=== PATIENT | male | born 1960 | race Hispanic/Latino ===

== ENCOUNTER 2024-01-28 12:13 | Inpatient (IN) | payer OTHER, SELFPAY ==
[2024-01-28] VITALS (12 sets, daily range): BP systolic 99–133; BP diastolic 54–76; PULSE 60–82; RESP 14–18; TEMP 36.5–37.1; O2SAT 96–100; BMI 22.7; BMI 23.5
[2024-01-28 13:16] LABS: Absolute Neutrophil Count 5.1 X10^3/uL (2.0-7.7); Basophil# 0.04 X10^3/uL; Basophil% 0.6 % (0-1); Eosinophil# 0.05 X10^3/uL; Eosinophils% 0.8 % (0-5); Hematocrit 22.1 % (40-54); Hemoglobin 6.8 g/dL (13.0-16.5); Lymphocyte % 9.4 % (19-41); Mean Corp Hgb Conc 30.8 g/dL (32-36); Mean Corpuscular Hgb 24.8 pg (27.0-32.0); Mean Corpuscular Volume 80.7 fL (80-94); Mean Platelet Vol. 10.1 fl (6.2-12.0); Monocyte# 0.51 X10^3/uL; NRBC Flagged by Analyzer 0 % (0-5); Neutrophil # 5.14 X10^3/uL (2.7-7.7); Neutrophil % 80.9 % (47-70); POSITIVE DIFFERENTIAL YES; Platelet Count 285 K/mm3 (150-450); RBC Distribution Width CV 13.7 % (11.6-14.6); RBC Distribution Width SD 39.8 fl (35.1-43.9); Red Blood Count 2.74 M/mm3 (4.6-6.2); White Blood Count 6.4 K/mm3 (4.4-11.0)
--- NOTE | 2024-01-28 13:23 | EX.ED.DYSGE1 ---
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 Patient states for the past couple months he has had pain with eating some nausea vomiting and loss of appetite. He is lost about 10 pounds. He notes that he has not had much of a bowel movement over the past week but when he has had a bowel movement it has been very small and black. He started taking Nexium on Saturday. He denies any drug or alcohol use.. He is a non-smoker. He takes no anti-inflammatories [id number]. No familial history of cancer or GI issues that he is aware of. Patient denies any syncope but notes generalized weakness. His friend notes that he appears pale to him. The patient notes that his palms appear pale. The patient went to urgent care were it was reported by the nurse practitioner that his stool was guaiac positive and he was sent to the emergency room for further evaluation [facility] Medical History no medical history no medical history Home Medications esomeprazole magnesium 20 mg capsule,delayed release (Nexium 24HR) 20 mg PO DAILY 01/28/24 [History Last Taken 01/28/24] Allergy/AdvReac Type Severity Reaction Status Date / Time No Known Allergies Allergy Verified 01/28/24 12:36 Surgical History no surgical history no surgical history Social History (Updated 01/28/24 @ 13:[address] Pablito Mendoza, DO) current gender identity: male Smoking Status: Never smoker substance use type: does not use ROS ROS ED Constitutional Constitutional ED: Denies chills, fever(s) or weight loss Eyes Eyes: Denies change in vision or diplopia ENT ENT ED: Denies ear pain, rhinorrhea or sore throat Cardiovascular Cardiovascular: Denies chest pain, orthopnea, palpitations or racing heartbeat Respiratory/Chest Respiratory/Chest: Denies cough, dyspnea or orthopnea Gastrointestinal Gastrointestinal: Reports abdominal pain, constipation, nausea, vomiting and other Details: Black stools ; Denies diarrhea Genitourinary Genitourinary ED: Denies dysuria, hematuria or urinary frequency Musculoskeletal Musculoskeletal: Denies arthralgias or myalgias Integumentary Denies abscess or rash Neurologic Neurologic: Denies headache(s) or weakness Psychiatric Psychiatric: Denies anxiety, depression, suicidal ideation or suicidal thoughts Endocrine Endocrinology: Denies polydipsia, polyphagia or polyuria Allergic/Immunologic Allergic/Immunologic ED: Denies mouth swelling, tongue swelling or urticaria EXAM Physical Exam Const Vital Signs: 01/28/24 12:14 01/28/24 14:14 Temperature 98 F Temperature Source Temporal Pulse Rate 77 74 Respiratory Rate 16 14 Blood Pressure 133/76 H 130/74 H Blood Pressure Mean 95 92 Pulse Ox 100 99 Oxygen Delivery Method Room Air Room Air Positive well nourished and well developed General Appearance ED: well developed and pallor HEENT Reports normocephalic, head/scalp atraumatic and moist mucous membranes Eyes PERRL and EOMs intact bilaterally Neck no lymphadenopathy, supple and no JVD Resp normal respiratory effort and clear to auscultation bilaterally Cardio regular rate, regular rhythm and no murmurs GI normal to inspection, nondistended, normoactive bowel sounds and non-tender Palpation: soft Back/Spine no CVA tenderness and normal ROM Extremity normal to inspection General Extremety ED: Negative for edema General Extremity: Negative for edema Neuro oriented x3 and CN's II-XII intact bilaterally Sensorium / Orientation: alert Motor Exam: strength 5/5 throughout Psych mental status grossly normal Mood & Affect: Negative for depressed or tearful Skin no rashes or lesions noted and no wounds General Skin Exam: pallor MDM MDM MDM Narrative Medical decision making narrative: Because of a guaiac was performed outside facility and reported to me I did not repeat the test. Hemoglobin returns at 6.8 MCV of 80.7 platelet count of 285 and a white count of 6.4. Coags with an INR 1.2 PTT 23.3 potassium low at 3.1 glucose of 104 BUN of 18 creatinine 0.91 LFTs are within normal limits. Patient was placed on Protonix and given potassium supplementation. To be speaking with gastroenterology and the hospitalist regarding admission. History & Record Review Discussion w/independent historian: Patient and Friend Lab Data Attestation: I reviewed the patient's lab results. Labs: Laboratory Results - last 24 hr 01/28/24 01/28/24 01/28/24 13:00 13:36 14:25 WBC 6.4 RBC 2.74 L Hgb 6.8 L Hct 22.1 L MCV 80.7 MCH 24.8 L MCHC 30.8 L RDW Std Deviation 39.8 RDW Coeff of Michael 13.7 Plt Count 285 MPV 10.1 Immature Gran % (Auto) 0.300 Neut % (Auto) 80.9 H Lymph % (Auto) 9.4 L Ralls % (Auto) 8.0 Eos % (Auto) 0.8 Baso % (Auto) 0.6 Absolute Neuts (auto) 5.1 Absolute Lymphs (auto) 0.60 L Nucleated RBC % 0 PT 14.7 INR 1.2 APTT 23.3 L Sodium 136 Potassium 3.1 L Chloride 105 Carbon Dioxide 25.0 Anion Gap 6 BUN 18 Creatinine 0.91 Estim Creat Clear Calc 63.33 Est GFR (MDRD) Af Amer 108 Est GFR (MDRD) Non-Af 89 BUN/Creatinine Ratio 19.8 Glucose 104 Calcium 7.9 L Total Bilirubin 0.30 Direct Bilirubin 0.11 AST 26 ALT 21 Alkaline Phosphatase 67 Total Protein 6.2 L Albumin 2.6 L Globulin 3.6 Lipase 36 Blood Type O POSITIVE Antibody Screen NEGATIVE Management Discussion w/another healthcare provider: Hospitalist (Dr Sommer) and Corporate Staff Accountant (GI ( Friend)) Discharge Plan Dx/Rx/DC Orders Clinical Impression: Abnormal weight loss, Acute blood loss anemia, Acute upper GI bleed Disposition Disposition: Acute Care Hospital [facility]
[2024-01-28 13:28] LABS: AST(SGOT) 26 U/L (15-37); Alanine Aminotransfer ALT/SGPT 21 U/L (16-61); Albumin, Serum 2.6 g/dL (3.2-5.0); Alkaline Phosphatase 67 U/L (45-117); Anion Gap 6 (5-15); BUN 18 mg/dL (7-18); BUN/Creat Ratio 19.8 RATIO (10-20); Bilirubin, Direct 0.11 mg/dL (0.00-0.30); Calcium,Total 7.9 mg/dL (8.5-10.1); Chloride 105 mmol/L (98-107); Creatinine, Serum 0.91 mg/dL (0.70-1.30); EST Glomerular Filtration Rate 89 mL/min (>60); Est Glom Filt Rate - Afr Amer 108 mL/min (>60); Estimated Creatinine Clearance 63.33 ml/min; Globulin 3.6 g/dL (2.2-4.2); Glucose 104 mg/dL (74-106); Lipase 36 U/L (13-75); Potassium 3.1 mmol/L (3.5-5.1); Protein, Total 6.2 g/dL (6.4-8.2); Sodium Level 136 mmol/L (136-145)
[2024-01-28] MEDS: Pantoprazole Sodium 80 MG in 0.9% Normal Saline (50mL Bag) 15 ML 420 MG IV BOLUS (14:15)
[2024-01-28 14:40] LABS: International Normalized Ratio 1.2; Prothrombin Time (Protime)PT. 14.7 SECONDS (11.7-14.9)
[2024-01-28 14:41] LABS: Partial Thromboplast Time 23.3 Seconds (24.1-36.2)
--- NOTE | 2024-01-28 14:46 | PCM.HP.STD ---
HPI - General General Date of Admission: 01/28/24 Date of Service: 01/28/24 Chief Complaint: Epigastric pain, N/V, black stools. HPI Narrative The patient is a 63 y/o M w/ no marked PMHx and on no medications who presents to the [facility] ED on 01/28/24 with history of persistent epigastric pain ongoing for the last 2 to 3 months with nausea and occasional emesis as well as decreased appetite reportedly losing 10 pounds with minimal bowel movements over the last week but poor oral intake however he does report that the bowel movements he has had have been small and black in appearance with self administration of Nexium starting this Saturday prior to presentation with no alcohol abuse reported and no [id number] anti-inflammatory medication but given ongoing with generalized weakness and fatigue as well as pale appearance patient was referred from urgent care to the ED for evaluation given these findings and positive stool guaiac. Workup in the ED included T98, heart 77, BP 133/76, respiratory rate 16, on high percent on room air, CBC with WBC 6.4, hemoglobin 6.8, MCV 80.7, platelet 285 with lymphopenia, coags unremarkable aside PTT 23.3, CMP with potassium 3.1, calcium 7.9 otherwise not marked appearing, lipase 36, type and cross initiated per ED physician. In the ED patient administered Protonix bolus and started on drip as well, Zofran 4 mg IV x 1. ED discussed case with gastroenterology. FORMERLY [facility], [facility]1983 Medical History (Updated 01/28/24 @ 17:08 by Trudy Guerra) GI bleed Medical History no medical history Home Medications esomeprazole magnesium 20 mg capsule,delayed release (Nexium 24HR) 20 mg PO DAILY 01/28/24 [History Last Taken 01/28/24] Allergy/AdvReac Type Severity Reaction Status Date / Time No Known Allergies Allergy Verified 01/28/24 12:36 Family History (Updated 01/28/24 @ 19:[address] Chelly Sommer MD) Mother No problems noted. Father No problems noted. other (Patient denies any marked paternal or maternal family history including HD/DM/CA.) Surgical History (Updated 01/28/24 @ 19:[address] Chelly Sommer MD) No history of previous surgery Surgical History no surgical history Social History (Updated 01/28/24 @ 19:[address] Chelly Sommer MD) household members: family Smoking Status: Never smoker alcohol intake: never substance use type: does not use ROS ROS Narrative Admission Review of Systems: CONSTITUTIONAL: No weight loss, fever, chills, + weakness or fatigue. HEENT: + Lightheadness, dizziness. Eyes: No visual loss, blurred vision, double vision or yellow sclerae. Ears, Nose, Throat: No hearing loss, sneezing, congestion, runny nose or sore throat. SKIN: No rash or itching, lesions, wounds. CARDIOVASCULAR: No chest pain, chest pressure or chest discomfort, palpitations, edema, orthopnea, syncopal events. RESPIRATORY: No shortness of breath, cough or sputum, wheezing, hemoptysis. GASTROINTESTINAL: + anorexia, nausea without vomiting, black stools, abdominal pain. No diarrhea, BRBPR. GENITOURINARY: No dysuria, frequency, urgency or retention. NEUROLOGICAL: + Lightheadedness, dizziness. No headache, syncope, paralysis, ataxia, numbness or tingling in the extremities, focal weakness, change in bowel or bladder control, seizure. MUSCULOSKELETAL: No muscle, back pain, joint pain or stiffness. HEMATOLOGIC: + Anemia, active GI bleed. LYMPHATICS: No enlarged nodes. No history of splenectomy. PSYCHIATRIC: No history of depression or anxiety. ENDOCRINOLOGIC: No reports of sweating, cold or heat intolerance. No polyuria or polydipsia. ALLERGIES: No history of asthma, hives, eczema or rhinitis. Vital Signs Vital Signs Vital Signs: 01/28/24 12:14 01/28/24 14:14 Temperature 98 F Temperature Source Temporal Pulse Rate 77 74 Respiratory Rate 16 14 Blood Pressure 133/76 H 130/74 H Blood Pressure Mean 95 92 Pulse Ox 100 99 Oxygen Delivery Method Room Air Room Air Weight Weight: 124 lb 4 oz Body Mass Index (BMI) 22.7 Physical Exam Narrative Physical Examination: General: Awake, alert, oriented x 3 and cooperative, seated upright in the ED bed in no apparent distress, fatigued appearing. Skin: Pale color, normal turgor, no icterus, no cyanosis. HEENT: AT/NC, EOMI, PERRLA, dry MM, no carotid bruits or JVD noted. Lungs: CTA bilaterally, moderate effort, mild decrease BL bases, no rales, ronchi or wheezing. Heart: Regular rate and rhythm; no gallop, rub audible. Abdomen: Soft, mild epigastric discomfort to palpation otherwise abdomen nontender, ND, hyperactive BS, no appreciated HSM. Extremities: No cyanosis, clubbing, or edema. Neurological: Patient awake, alert, oriented as noted, cognitive function intact; pupils equally reactive to light and accommodation, cranial nerves II-XII grossly normal, moving all 4 extremities, no focal deficits, strength mildly to moderately globally decreased secondary to acute presentation. Psychiatric: Affect appears flat, fatigued, no acute evidence of depressive or anxiety feelings. Results Lab / Micro Data 01/28/24 13:00 01/28/24 13:00 Labs: Laboratory Results - last 24 hr 01/28/24 13:00: WBC 6.4, RBC 2.74 L, Hgb 6.8 L, Hct 22.1 L, MCV 80.7, MCH 24.8 L, MCHC 30.8 L, RDW Std Deviation 39.8, RDW Coeff of Michael 13.7, Plt Count 285, MPV 10.1, Immature Gran % (Auto) 0.300, Neut % (Auto) 80.9 H, Lymph % (Auto) 9.4 L, Hall % (Auto) 8.0, Eos % (Auto) 0.8, Baso % (Auto) 0.6, Absolute Neuts (auto) 5.1, Absolute Lymphs (auto) 0.60 L, Nucleated RBC % 0, Sodium 136, Potassium 3.1 L, Chloride 105, Carbon Dioxide 25.0, Anion Gap 6, BUN 18, Creatinine 0.91, Estim Creat Clear Calc 63.33, Est GFR (MDRD) Af Amer 108, Est GFR (MDRD) Non-Af 89, BUN/Creatinine Ratio 19.8, Glucose 104, Calcium 7.9 L, Total Bilirubin 0.30, Direct Bilirubin 0.11, AST 26, ALT 21, Alkaline Phosphatase 67, Total Protein 6.2 L, Albumin 2.6 L, Globulin 3.6, Lipase 36 01/28/24 13:36: Blood Type O POSITIVE, Antibody Screen NEGATIVE 01/28/24 14:25: PT 14.7, INR 1.2, APTT 23.3 L Assessment & Plan Assessment/Plan (1) Acute upper GI bleed: PLAN: Plan The patient is a 63 y/o M w/ no marked PMHx and on no medications who presents to the [facility] ED on 01/28/24 with history of persistent epigastric pain ongoing for the last 2 to 3 months with nausea and occasional emesis as well as decreased appetite reportedly losing 10 pounds with minimal bowel movements over the last week but poor oral intake however he does report that the bowel movements he has had have been small and black in appearance with self administration of Nexium. #1. Acute GI Bleed w/ resultant Acute Blood Loss Anemia: Admission Hgb 6.8, unclear prior baseline, will admit to MS given stable VS, maintain on IVFs with pending 1 u PRBC per ED, will obtain serial H+Hs, maintain on IV PPI, continue IV protonix drip initiated in the ED, clears until midnight then NPO status. CM consulted. #2. Hypokalemia: Admission K+ 3.1, magnesium requested, supplementation given, repeat level in AM. #3. DVT prophylaxis: SCDs. Charges/Coding Visit Charges Inpatient E&M: 94312 Init Hosp L2
[2024-01-28] MEDS: Potassium Chloride 10mEq/100mL 10 MEQ/100 ML IV.SOLN. 100 MEQ IV BOLUS (15:08)
[2024-01-28] MEDS: Pantoprazole Sodium 80 MG in 0.9% Normal Saline (100mL Bag) 80 ML 10 MG CONT INF (15:08)
[2024-01-28] MEDS: Ondansetron 4 MG/2 ML Vial IV (15:08)
--- NOTE | 2024-01-28 15:11 | NURSING ---
MED SURG WHITE UPPER GI BLEEDING, ANEMIA
[2024-01-28 15:34] LABS: Magnesium 2.1 mg/dL (1.6-2.6)
--- NOTE | 2024-01-28 17:10 | NURSING ---
limited assessment completed due to language barrier.
[2024-01-28] MEDS: Potassium Chloride Oral Tablet 20 MEQ 40 MEQ PO (17:58)
[2024-01-28] MEDS: 0.9% Normal Saline (1000mL) 1,000 ML 100 ML IV (18:47)
[2024-01-28 20:15] LABS: Hematocrit 21.8 % (40-54); Hemoglobin 6.9 g/dL (13.0-16.5)
--- NOTE | 2024-01-28 22:27 | EX.PCM.CON.G ---
HPI Consult Data Date of Consult: 01/28/24 HPI Narrative Reason for Consultation: Upper GI bleed HPI Narrative: KAILA ANDRADE, is a 63 M who presents severe abdominal pain. He has no significant PMHx and on no medications who presents to the [facility] ED on 01/28/24 with history of persistent epigastric pain ongoing for the last 2 to 3 months with nausea and occasional emesis as well as decreased appetite reportedly losing 10 pounds with minimal bowel movements over the last week. He also admits to poor oral intake however he does report that the bowel movements he has had have been small and black in appearance with self administration of Nexium starting this Saturday prior to presentation with no alcohol abuse reported and no [id number] anti-inflammatory medication but given ongoing with generalized weakness and fatigue as well as pale appearance patient was referred from urgent care to the ED for evaluation given these findings and positive stool guaiac. Workup in the ED included T98, heart 77, BP 133/76, respiratory rate 16, on high percent on room air, CBC with WBC 6.4, hemoglobin 6.8, MCV 80.7, platelet 285 with lymphopenia, coags unremarkable aside PTT 23.3, CMP with potassium 3.1, calcium 7.9 otherwise not marked appearing, lipase 36, type and cross initiated per ED physician. [facility] Medical History GI bleed Medical History no medical history Home Medications esomeprazole magnesium 20 mg capsule,delayed release (Nexium 24HR) 20 mg PO DAILY 01/28/24 [History Last Taken 01/28/24] Allergy/AdvReac Type Severity Reaction Status Date / Time No Known Allergies Allergy Verified 01/28/24 12:36 Family History (Updated 01/28/24 @ 19:[address] Chelly Sommer MD) Mother No problems noted. Father No problems noted. Family History other Surgical History No history of previous surgery Surgical History no surgical history Social History (Updated 01/28/24 @ 19:[address] Chelly Sommer MD) household members: family current gender identity: male Smoking Status: Never smoker alcohol intake: never substance use type: does not use ROS ROS Narrative Admission Review of Systems: CONSTITUTIONAL: No weight loss, fever, chills, + weakness or fatigue. HEENT: + Lightheadness, dizziness. Eyes: No visual loss, blurred vision, double vision or yellow sclerae. Ears, Nose, Throat: No hearing loss, sneezing, congestion, runny nose or sore throat. SKIN: No rash or itching, lesions, wounds. CARDIOVASCULAR: No chest pain, chest pressure or chest discomfort, palpitations, edema, orthopnea, syncopal events. RESPIRATORY: No shortness of breath, cough or sputum, wheezing, hemoptysis. GASTROINTESTINAL: + anorexia, nausea without vomiting, black stools, abdominal pain. No diarrhea, BRBPR. GENITOURINARY: No dysuria, frequency, urgency or retention. NEUROLOGICAL: + Lightheadedness, dizziness. No headache, syncope, paralysis, ataxia, numbness or tingling in the extremities, focal weakness, change in bowel or bladder control, seizure. MUSCULOSKELETAL: No muscle, back pain, joint pain or stiffness. HEMATOLOGIC: + Anemia, active GI bleed. LYMPHATICS: No enlarged nodes. No history of splenectomy. PSYCHIATRIC: No history of depression or anxiety. ENDOCRINOLOGIC: No reports of sweating, cold or heat intolerance. No polyuria or polydipsia. ALLERGIES: No history of asthma, hives, eczema or rhinitis. Physical Exam Const alert Constitutional Narrative: Appears younger than stated age. Afebrile. Resp normal respiratory effort, no retractions, no use of accessory muscles and clear to auscultation bilaterally Cardio regular rate, regular rhythm, S1 normal heart sound and S2 normal heart sound GI normal to inspection, nondistended, normoactive bowel sounds and soft to palpation GI Narrative: Epigastric abdominal pain without rebound. Extremity normal to inspection and full ROM Neuro Sensorium / Orientation: awake and alert Psych affect normal Lab / Micro Data 01/29/24 07:15 01/29/24 02:31 Labs: Laboratory Results - last 24 hr 01/28/24 13:00: WBC 6.4, RBC 2.74 L, Hgb 6.8 L, Hct 22.1 L, MCV 80.7, MCH 24.8 L, MCHC 30.8 L, RDW Std Deviation 39.8, RDW Coeff of Michael 13.7, Plt Count 285, MPV 10.1, Immature Gran % (Auto) 0.300, Neut % (Auto) 80.9 H, Lymph % (Auto) 9.4 L, [place] % (Auto) 8.0, Eos % (Auto) 0.8, Baso % (Auto) 0.6, Absolute Neuts (auto) 5.1, Absolute Lymphs (auto) 0.60 L, Nucleated RBC % 0, Sodium 136, Potassium 3.1 L, Chloride 105, Carbon Dioxide 25.0, Anion Gap 6, BUN 18, Creatinine 0.91, Estim Creat Clear Calc 63.33, Est GFR (MDRD) Af Amer 108, Est GFR (MDRD) Non-Af 89, BUN/Creatinine Ratio 19.8, Glucose 104, Calcium 7.9 L, Magnesium 2.1, Total Bilirubin 0.30, Direct Bilirubin 0.11, AST 26, ALT 21, Alkaline Phosphatase 67, Total Protein 6.2 L, Albumin 2.6 L, Globulin 3.6, Lipase 36 01/28/24 13:36: Blood Type O POSITIVE, Antibody Screen NEGATIVE, Crossmatch See Detail 01/28/24 13:36: Crossmatch See Detail 01/28/24 14:25: PT 14.7, INR 1.2, APTT 23.3 L 01/28/24 19:54: Hgb 6.9 L, Hct 21.8 L 01/29/24 02:31: Hgb 8.1 L, Hct 24.9 L, Sodium 141, Potassium 3.5, Chloride 111 H, Carbon Dioxide 25.0, Anion Gap 5, BUN 9, Creatinine 0.62 L, Estim Creat Clear Calc 92.96, Est GFR (MDRD) Af Amer 167, Est GFR (MDRD) Non-Af 138, BUN/Creatinine Ratio 14.5, Glucose 102, Calcium 7.2 L, Total Bilirubin 0.70, AST 17, ALT 16, Alkaline Phosphatase 52, Total Protein 4.8 L, Albumin 2.0 L, Globulin 2.8, Albumin/Globulin Ratio 0.7 L 01/29/24 07:15: WBC 4.7, RBC 2.89 L, Hgb 7.7 L, Hct 24.0 L, MCV 83.0, MCH 26.6 L, MCHC 32.1, RDW Std Deviation 44.5 H, RDW Coeff of Michael 14.6, Plt Count 202, MPV 10.6, Immature Gran % (Auto) 0.200, Neut % (Auto) 62.8, Lymph % (Auto) 18.1 L, [place] % (Auto) 13.8 H, Eos % (Auto) 4.5, Baso % (Auto) 0.6, Absolute Neuts (auto) 3.0, Absolute Lymphs (auto) 0.85, Nucleated RBC % 0 Assessment & Plan Assessment/Plan (1) Acute upper GI bleed: PLAN: Plan The patient is a 63 y/o M w/ no marked PMHx and on no medications who presents to the [facility] ED on 01/28/24 with history of persistent epigastric pain ongoing for the last 2 to 3 months. He also admits to nausea and occasional emesis as well as decreased appetite reportedly losing 10 pounds with minimal bowel movements over the last week. . Suspected acute GI Bleed w/ resultant Acute Blood Loss Anemia: Admission Hgb 6.8, unclear prior baseline, will admit to MS given stable VS, maintain on IVFs with pending 1 u PRBC per ED, will obtain serial H+Hs, maintain on IV PPI, continue IV protonix drip initiated in the ED, clears until midnight then NPO status. He will undergo an upper endoscopy to evaluate his upper GI tract. He was explained alternatives, risk, benefits including not withstanding bleeding, infection, sepsis, perforation, need for emergent surgery and . He will have an ASA of 3. Charges/Coding Visit Charges Inpatient E&M: 78195 Init Hosp L2
[2024-01-29] VITALS (31 sets, daily range): BP systolic 67–110; BP diastolic 47–65; PULSE 50–85; RESP 14–20; TEMP 35.6–37.2; O2SAT 93–100; BMI 23.5
[2024-01-29] MEDS: Pantoprazole Sodium 80 MG in 0.9% Normal Saline (100mL Bag) 80 ML 10 MG CONT INF ×2 (00:38→10:14)
[2024-01-29 02:41] LABS: Hematocrit 24.9 % (40-54); Hemoglobin 8.1 g/dL (13.0-16.5)
[2024-01-29 04:08] LABS: ALB/GLOB Ratio 0.7 RATIO (0.9-2.4); AST(SGOT) 17 U/L (15-37); Alanine Aminotransfer ALT/SGPT 16 U/L (16-61); Alkaline Phosphatase 52 U/L (45-117); Anion Gap 5 (5-15); BUN 9 mg/dL (7-18); BUN/Creat Ratio 14.5 RATIO (10-20); Calcium,Total 7.2 mg/dL (8.5-10.1); Chloride 111 mmol/L (98-107); Creatinine, Serum 0.62 mg/dL (0.70-1.30); EST Glomerular Filtration Rate 138 mL/min (>60); Est Glom Filt Rate - Afr Amer 167 mL/min (>60); Estimated Creatinine Clearance 92.96 ml/min; Globulin 2.8 g/dL (2.2-4.2); Glucose 102 mg/dL (74-106); Potassium 3.5 mmol/L (3.5-5.1); Protein, Total 4.8 g/dL (6.4-8.2); Sodium Level 141 mmol/L (136-145)
[2024-01-29 07:42] LABS: Absolute Lymphocyte Count 0.85 X10^3/uL (0.83-4.51); Basophil# 0.03 X10^3/uL; Basophil% 0.6 % (0-1); Eosinophil# 0.21 X10^3/uL; Eosinophils% 4.5 % (0-5); Hemoglobin 7.7 g/dL (13.0-16.5); Lymphocyte # 0.85 X10^3/ul (0.83-4.51); Lymphocyte % 18.1 % (19-41); Mean Corp Hgb Conc 32.1 g/dL (32-36); Mean Corpuscular Hgb 26.6 pg (27.0-32.0); Mean Platelet Vol. 10.6 fl (6.2-12.0); Monocyte# 0.65 X10^3/uL; Monocyte% 13.8 % (0-10); NRBC Flagged by Analyzer 0 % (0-5); Neutrophil # 2.95 X10^3/uL (2.7-7.7); Neutrophil % 62.8 % (47-70); Platelet Count 202 K/mm3 (150-450); RBC Distribution Width CV 14.6 % (11.6-14.6); RBC Distribution Width SD 44.5 fl (35.1-43.9); Red Blood Count 2.89 M/mm3 (4.6-6.2); White Blood Count 4.7 K/mm3 (4.4-11.0)
--- NOTE | 2024-01-29 07:55 | PN.HOSP_ITS ---
Reason for Visit Reason for Visit: Diagnoses Gastrointestinal hemorrhage, unspecified (01/28/24) Subjective Subjective I was able to speak with the patient directly with out the use of hand tool filer. Patient is claiming of epigastric pain and had been having melena prior to arrival. Denies any further melena at this time. Objective Data Objective Data Vital Signs: Vital Signs Temp Pulse Resp BP Pulse Ox O2 Del Method 36.8 C 60 16 90/56 L 98 Room Air 01/29/24 05:45 01/29/24 05:45 01/29/24 05:45 01/29/24 05:45 01/29/24 05:45 01/29/24 05:45 Oxygen Delivery Method Room Air Weight: 58.4 kg Body Mass Index (BMI) 23.5 Intake & Output: Intake and Output for Last 24 Hours 01/27/24 01/28/24 01/29/24 23:59 23:59 23:59 Intake Total 482.67 / 482.67 96 / 96 Balance 482.67 / 482.67 96 / 96 Lab / Micro Data 01/29/24 07:15 01/29/24 02:31 Labs: Laboratory Results - last 24 hr 01/28/24 13:00: WBC 6.4, RBC 2.74 L, Hgb 6.8 L, Hct 22.1 L, MCV 80.7, MCH 24.8 L , MCHC 30.8 L, RDW Std Deviation 39.8, RDW Coeff of Michael 13.7, Plt Count 285, MPV 10.1, Immature Gran % (Auto) 0.300, Neut % (Auto) 80.9 H, Lymph % (Auto) 9.4 L, [place] % (Auto) 8.0, Eos % (Auto) 0.8, Baso % (Auto) 0.6, Absolute Neuts (auto) 5.1, Absolute Lymphs (auto) 0.60 L, Nucleated RBC % 0, Sodium 136, Potassium 3.1 L, Chloride 105, Carbon Dioxide 25.0, Anion Gap 6, BUN 18, Creatinine 0.91, Estim Creat Clear Calc 63.33, Est GFR (MDRD) Af Amer 108, Est GFR (MDRD) Non-Af 89, BUN/Creatinine Ratio 19.8, Glucose 104, Calcium 7.9 L, Magnesium 2.1, Total Bilirubin 0.30, Direct Bilirubin 0.11, AST 26, ALT 21, Alkaline Phosphatase 67, Total Protein 6.2 L, Albumin 2.6 L, Globulin 3.6, Lipase 36 01/28/24 13:36: Blood Type O POSITIVE, Antibody Screen NEGATIVE, Crossmatch See Detail 01/28/24 13:36: Crossmatch See Detail 01/28/24 14:25: PT 14.7, INR 1.2, APTT 23.3 L 01/28/24 19:54: Hgb 6.9 L, Hct 21.8 L 01/29/24 02:31: Hgb 8.1 L, Hct 24.9 L, Sodium 141, Potassium 3.5, Chloride 111 H , Carbon Dioxide 25.0, Anion Gap 5, BUN 9, Creatinine 0.62 L, Estim Creat Clear Calc 92.96, Est GFR (MDRD) Af Amer 167, Est GFR (MDRD) Non-Af 138, BUN/Creatinine Ratio 14.5, Glucose 102, Calcium 7.2 L, Total Bilirubin 0.70, AST 17, ALT 16, Alkaline Phosphatase 52, Total Protein 4.8 L, Albumin 2.0 L, Globulin 2.8, Albumin/Globulin Ratio 0.7 L 01/29/24 07:15: WBC 4.7, RBC 2.89 L, Hgb 7.7 L, Hct 24.0 L, MCV 83.0, MCH 26.6 L , MCHC 32.1, RDW Std Deviation 44.5 H, RDW Coeff of Michael 14.6, Plt Count 202, MPV 10.6, Immature Gran % (Auto) 0.200, Neut % (Auto) 62.8, Lymph % (Auto) 18.1 L, [place] % (Auto) 13.8 H, Eos % (Auto) 4.5, Baso % (Auto) 0.6, Absolute Neuts (auto) 3.0, Absolute Lymphs (auto) 0.85, Nucleated RBC % 0 Physical Exam Const alert Constitutional Narrative: Appears younger than stated age. Afebrile. Resp normal respiratory effort, no retractions, no use of accessory muscles and clear to auscultation bilaterally Cardio regular rate, regular rhythm, S1 normal heart sound and S2 normal heart sound GI normal to inspection, nondistended, normoactive bowel sounds and soft to palpation GI Narrative: Epigastric abdominal pain without rebound. Extremity normal to inspection and full ROM Neuro Sensorium / Orientation: awake and alert Psych affect normal Assessment & Plan Assessment/Plan (1) Acute upper GI bleed: PLAN: Plan Acute GI Bleed * Suspect PUD * IV PPI * GI consult Acute Blood Loss Anemia: * 2/2 GIB * Admission Hgb 6.8, unclear prior baseline, improved to 7.7 after 1 unit PRBC Hypokalemia: Admission K+ 3.1, magnesium requested, supplementation given, repeat level in AM. DVT prophylaxis: SCDs. Charges/Coding Visit Charges Inpatient E&M: 68842 Subs Hosp L2
[2024-01-29] MEDS: 0.9% Normal Saline (1000mL) 1,000 ML 150 ML IV (08:53)
[2024-01-29] MEDS: Morphine 2 MG/ML Syringe IV (09:10)
[2024-01-29] MEDS: 0.9% Saline Lock 10 ML Syringe IV (09:11)
--- NOTE | 2024-01-29 11:30 | CASEMGMT ---
RN CM NOTE: RN CM to room to complete initial RN CM assessment. Pt is out of room for scope at this time. Jeremie CORNELLN RN CM
--- NOTE | 2024-01-29 12:15 | IMM_PTH ---
PATIENT: KAILA MARQUEZ LOC: ICU U#:[id number] AGE/SX: 63/M ROOM: ICU05 RE01/28/[address]: Dr. Sean Mooney DO : 1960 BED: 1 DIS: 01/31/2024 SPEC #: [id number] RECD: 01/30/24 08:25 STATUS: SOUT REQ #: [id number] KINGS: 01/29/24 12:[address]: Yusef Myers DEPT: IMMUNOHISTOCHEMISTRY RECD BY: Jorge Crooks ENTERED: 01/30/24 08:26 SP TYPE: IMMUNO OTHR DR: MD Dr. Kj Mobley MD Dr. Autumn L White, MD Dr. Derek Brown, DO Dr. Eric Jopperi, DO Dr. Edward Matheis, MD Dr. Gautam Baskaran, MD Dr. Yordanos Habtegebriel, MD Dr. Hemant Dand, MD Dr. Kimber Foust, MD Dr. Lamia Aljundi, MD Dr. Pritam Ghosh, MD Dr. Pavan Irukulla, MD Dr. Saad Farooqi, MD Dr. Vikram Anand, MD Dr. William Haden, MD No Primary Care Phys Tissues: Stomach, NOS Procedures: H Pylori (initial) CK20 (add) CK7 (add) CK8 (add) KI-67 (add) P53 (add) Pankeratin (add) MOC-31 (add) Comments: @ Ordering doctor for H.PYLORI edited from to @ by BIRD at 01/30/24 0828 @ Submitting doctor edited from to @ by MRYAN at 01/30/24 0828 PHYSICIAN & INSTITUTION [place] [address] SPECIMEN INFORMATION: Tissue Source: Gastric ulcer Clinical Info: GI bleed Specimen Number: [id number] CPT code: 83515,26018p5 METHODOLOGY: Deparaffinized sections of prefer/formalin-fixed tissue or PAP/DQ stained slides are incubated with monoclonal/polyclonal antibodies/oligonucleotide probes. Localization is made via biotin free immunoperoxidase method. Appropriate controls are performed and reacted as expected. Results on target cell population are indicated in the following table: RESULTS: ANTIBODY / CLONE RESULT H Pylori (polyclonal) negative AE1-3 (AE1/AE3/PCK26) positive CK7 (OV-TL12/30) positive CK8 (21knokY75) positive CK20 (KS20.8) negative MOC-31 (4561) positive, weak P53 (DO-7) negative ( null pattern ) Ki-67 (30-9) positive, high These tests were developed and their performance characteristics determined by [facility]. They may not have been cleared or approved by the U.S. Food and Drug Administration. The FDA has determined that such clearance or approval is not necessary. The above immunohistochemical/dualISH markers are ordered and reviewed by the Pathologist. INTERPRETATION: Gastric ulcer, biopsy: Poorly differentiated invasive adenocarcinoma. Negative for H. pylori organisms. ABNER/ 02/04/2024
--- NOTE | 2024-01-29 12:15 | EGD_PTH ---
PATIENT: KAILA MARQUEZ LOC: ICU U#:[id number] AGE/SX: 63/M ROOM: ICU05 RE01/28/[address]: Dr. Sean Mooney DO : 1960 BED: 1 DIS: 01/31/2024 SPEC #: [id number] RECD: 01/29/24 17:47 STATUS: SOUHarry REQ #: [id number] KINGS: 01/29/24 12:[address]: Yusef Myers DEPT: SURGICAL PATHOLOGY RECD BY: Chelsea Huertas ENTERED: 01/30/24 10:15 SP TYPE: EGD BIOPSY OTHR DR: MD Dr. Kj Mobley MD Dr. Autumn L White, MD Dr. Derek Brown, DO Dr. Eric Jopperi, DO Dr. Edward Matheis, MD Dr. Gautam Baskaran, MD Dr. Yordanos Habtegebriel, MD Dr. Hemant Dand, MD Dr. Kimber Foust, MD Dr. Lamia Aljundi, MD Dr. Pritam Ghosh, MD Dr. Pavan Irukulla, MD Dr. Saad Farooqi, MD Dr. Vikram Anand, MD Dr. William Haden, MD No Primary Care Phys Tissues: Gastric mucous membrane Procedures: Surgery Specimen Level IV Comments: @ Ordering doctor for SUIV edited from to @ patric PANG at 01/30/24 1413 @ Submitting doctor edited from to @ patric PANG at 01/30/24 1418 HEADER OPERATION: EGD and hemostasis with gold probe cautery PRE-OP DIAGNOSIS: GI bleed TISSUE SUBMITTED: Gastric ulcer biopsy MICROSCOPIC DIAGNOSIS Gastric ulcer, biopsy: Poorly differentiated invasive adenocarcinoma. See comment. 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 Immunohistochemistry ([id number]) supports the above diagnosis. Alcian blue/PAS and mucin stains with matched control are also used in the evaluation of the specimen. Please also make reference to additional specimen [id number], gastric mass, biopsy with diagnosis of poorly differentiated invasive adenocarcinoma. This case is discussed with Dr. Nugent from [facility] on 02/04/24. Case has been reviewed in consultation with Dr. Franco who concurs with the above diagnosis. IDC:AM MICROSCOPIC DESCRIPTION Slides are reviewed. GROSS DESCRIPTION Received in fixative is one container labeled with the patient's name and designated Gastric ulcer biopsy. The specimen consists of multiple irregular fragments of light richardson soft tissue that in aggregate measure 1.0 x 0.4 x 0.1 cm. The specimen is totally submitted in one cassette. ABNER/ 01/30/2024 TC:0 [facility]:[id number] ADDENDUM ADDENDUM ADDENDUM ADDENDUM ADDENDUM ADDENDUM ADDENDUM 05/04/2024 08:26 ADDENDUM 05/04/2024 08:26 ADDENDUM 05/04/2024 08:26 ADDENDUM 05/04/2024 08:26 ADDENDUM 05/04/2024 08:26 PD-L1 (KEYTRUDA) IMMUNOHISTOCHEMICAL ANALYSIS FROM [facility] RESULTS: PD-L1 IHC ANAYLYSIS FOR GASTRIC/GEJ ADENOCARCINOMA Combined Positive Score: 5 (CPS>=1/ PD-L1 Expressed) Please see complete report in e-chart or EMR
[2024-01-29] MEDS: Epinephrine (1 mg/ml) 1 MG/ML VIAL (12:54)
--- NOTE | 2024-01-29 13:34 | CT_ITS ---
STUDY: CT CHEST, ABDOMEN T PELVIS WITH CONTRAST REASON FOR EXAM: Male, 63 years old. aspiration PNA and gastric outlet obstruction RADIATION DOSAGE (If Supplied By Facility): CTDIvol = ( 15.45 ) mGy, DLP = ( 1276.71 ) mGycm TECHNIQUE: Transaxial imaging was performed following intravenous administration of IV 100mL Isovue-300. Individualized dose optimization techniques were used for this CT. COMPARISON: No relevant priors. FINDINGS: CHEST There is consolidation of the apical posterior segment of left upper lobe as well as the superior segment of left lower lobe and dependent portion of the left base in association with tiny effusion. There is also consolidation of the dependent aspect of the right lung base with a small effusion Normal heart and pericardium. No coronary artery calcification is observed Normal mediastinum. Normal hilar regions. Normal unenhanced pulmonary arteries. Normal aorta arch and descending thoracic aorta. Endotracheal tube noted terminating proximal to the brian Dorsal spine demonstrates mild spondylosis Nasogastric tube noted in the stomach which demonstrates fluid as well as retained secretions. ABDOMEN Normal liver. Normal gallbladder and extrahepatic biliary system. Normal spleen. Normal pancreas. Normal bilateral adrenal glands. Normal right kidney. Normal left kidney. The gastric fundus is mildly distended containing fluid as well as retained secretions proximal to narrowed gastric antrum and pyloric duodenal junction consistent with known peptic ulcer disease.. There is soft tissue density measuring 2.2 x 1.75 cm medial to the gastric fundus possibly representing an enlarged node. Normal small intestine. Mild diffuse fecal retention noted within the colon.. No evidence for acute appendicitis. Normal abdominal aorta. Normal inferior vena cava. Normal retroperitoneum. Normal abdominal wall. Normal osseous structures. PELVIS Poorly distended thick walled bladder containing Bautista catheter. Normal visualized small intestine. Normal visualized colon. There is no pelvic fluid. There is no pelvic lymphadenopathy or mass lesion. Normal visualized pelvic arteries. Normal abdominal wall. Normal osseous structures. CT/CT Chest, Abd, Pel w/Contrast IMPRESSION: Consolidation of the dependent portion of the left upper, superior segment of left lower lobe and left base with tiny effusion and consolidation of the dependent portion of the right lower lobe with small effusion which may be consistent with aspiration pneumonia. Gastric distention with fluid and retained secretions proximal to severely narrowed antral pyloric and pyloroduodenal segments which may be on the basis of peptic ulcer disease. Electronically Signed: Servando Simpson MD at 17:13 EDT ,
--- NOTE | 2024-01-29 13:40 | OP.EGD_ITS ---
Patient Name: Elliott Norton Procedure Date: 01/29/2024 12:26 PM Date of : 1960 Age: 63 Procedure: Upper GI endoscopy Indications: Epigastric abdominal pain, Iron deficiency anemia Providers: Yusef Myers DO Medicines: Monitored Anesthesia Care Patient Profile: This is a 63 year old male. Refer to note in patient chart for documentation of history and physical. Patient has symptoms of chronic epigastric abdominal pain. Complications: No immediate complications. Procedure: Pre-Anesthesia Assessment: - Prior to the procedure, a History and Physical was performed, and patient medications and allergies were reviewed. The risks and benefits of the procedure and the sedation options and risks were discussed with the patient. All questions were answered and informed consent was obtained. Patient identification and proposed procedure were verified by the physician in the pre-procedure area. Mental Status Examination: alert and oriented. Airway Examination: normal oropharyngeal airway and neck mobility. Respiratory Examination: clear to auscultation. CV Examination: normal. Prophylactic Antibiotics: The patient does not require prophylactic antibiotics. Prior Anticoagulants: The patient has taken no anticoagulant or antiplatelet agents. ASA Grade Assessment: III - A patient with severe systemic disease. After reviewing the risks and benefits, the patient was deemed in satisfactory condition to undergo the procedure. The anesthesia plan was to use monitored anesthesia care (MAC). Immediately prior to administration of medications, the patient was re-assessed for adequacy to receive sedatives. The heart rate, respiratory rate, oxygen saturations, blood pressure, adequacy of pulmonary ventilation, and response to care were monitored throughout the procedure. The physical status of the patient was re-assessed after the procedure. After obtaining informed consent, the endoscope was passed under direct vision. Throughout the procedure, the patient's blood pressure, pulse, and oxygen saturations were monitored continuously. The Endoscope was introduced through the mouth, and advanced to the second part of duodenum. The upper GI endoscopy was accomplished without difficulty. The patient tolerated the procedure well. Scope In: 12:43:00 PM Scope Out: 1:05:53 PM Total Procedure Duration Time 0 hours 22 minutes 53 seconds Findings: LA Grade D (one or more mucosal breaks involving at least 75% of esophageal circumference) esophagitis with no bleeding was found 34 to 38 cm from the incisors. Retained fluid was found in the entire examined stomach. Fluid aspiration was performed. Verification of patient identification for the specimen was done. Estimated blood loss was minimal. Three spurting cratered gastric ulcers with a visible vessel were found at the incisura and in the gastric antrum. The largest lesion was 10 mm in largest dimension. Area was successfully injected with 10 mL of a 0.1 mg/mL solution of epinephrine for drug delivery. Coagulation for hemostasis using heater probe was successful. To stop active bleeding, hemostatic spray was deployed. Multiple sprays were applied. There was no bleeding at the end of the procedure. Biopsies were taken with a cold forceps for histology. Verification of patient identification for the specimen was done. Estimated blood loss was minimal. Biopsies were taken with a cold forceps for Helicobacter pylori testing. Verification of patient identification for the specimen was done. Estimated blood loss was minimal. A benign-appearing, intrinsic severe stenosis was found at the pylorus. This was traversed. A TTS dilator was passed through the scope. Dilation with a 15 mm pyloric balloon dilator was performed. The dilation site was examined and showed no change. Estimated blood loss was minimal. No gross lesions were noted in the first portion of the duodenum. Impression: - LA Grade D erosive esophagitis with no bleeding. - Retained gastric fluid. Fluid aspiration performed. - Spurting gastric ulcers with a visible vessel. Injected. Treated with a heater probe. hemostatic spray applied. - Gastric stenosis was found at the pylorus. Dilated. - No gross lesions in the first portion of the duodenum. Recommendation: - Return patient to ICU for ongoing care. - NPO. - Continue present medications. - Await pathology results. Procedure Code(s): --- Professional --- 77712, 59, Esophagogastroduodenoscopy, flexible, transoral; with control of bleeding, any method 41381, 51, Esophagogastroduodenoscopy, flexible, transoral; with dilation of gastric/duodenal stricture(s) (eg, balloon, bougie) 07516, 59, Esophagogastroduodenoscopy, flexible, transoral; with biopsy, single or multiple 19281, 59, Esophagogastroduodenoscopy, flexible, transoral; with directed submucosal injection(s), any substance CPT copyright 2021 [employer]. All rights reserved. The codes documented in this report are preliminary and upon underground supervisor review may be revised to meet current compliance requirements. Yusef Myers DO 01/29/2024 1:39:16 PM This report has been signed electronically. Number of Addenda: 0 Note Initiated On: 01/29/2024 12:26 PM
--- NOTE | 2024-01-29 13:40 | OP.CCLET_ITS ---
01/29/2024 No Primary Care Physician Re : Upper GI endoscopy procedure for Elliott Norton Dear Care Physician This procedure was performed on Monday, January 29, 2024. My impressions and recommendations are as follows: Impressions : - LA Grade D erosive esophagitis with no bleeding. - Retained gastric fluid. Fluid aspiration performed. - Spurting gastric ulcers with a visible vessel. Injected. Treated with a heater probe. hemostatic spray applied. - Gastric stenosis was found at the pylorus. Dilated. - No gross lesions in the first portion of the duodenum. Recommendations : - Return patient to ICU for ongoing care. - NPO. - Continue present medications. - Await pathology results. My findings are described in the full procedure note, which is enclosed. If I can be of further assistance, please feel free to contact me at . Sincerely, Yusef Myers, 01/29/2024 1:39:16 PM This report has been signed electronically.
--- NOTE | 2024-01-29 13:42 | SUR.OPER ---
1305 - Dr. Myers doing an EGD and noted large amounts of coffee ground in his stomach; removed EGD scope and attempted to place an NG. Patient began vomiting and noted to aspirate. Markus Black, Resilient Tile Installer began to suction immediately and Dr. Myers began bagging patient with Ambu bag and 100% oxygen. Endo RN called for stat Anesthesia and staff assistance over the department intercom. 1306 - Staff from PACU and Dr. Joshi arrived. Ambu bag continuing and suctioning continuing. Patient is not awake but noted to be gagging with emesis during suctioning. Monitor showing NSR with HR in 90's, BP 74/55, and O2 Sat 60%. Bagging continues with 100% oxygen. 1310 - Dr. Joshi requesting glide scope to get ready to intubate. Ambu bagging continues and patient continues to be sedated from EGD medications given (see Anesthesia Intraop record). Monitor showing NSR with HR in 90's and O2 sat 81%. 1312 - Patient coughing but not awake and large amount of dark coffee ground suctioned. BP 112/66, HR 94, O2 sat 89%. Bagging continues when not suctioning. 1315 - Dr. Joshi intubating patient at this time. #7.5 ETT placed at 26cm lip. Monitor showing NSR with HR 99, BP 106/56, O2 sat 100% after intubation and ambu bagging continues with 100% oxygen filtered in. 1320 - AC security systems sales representative attempting to locate the patient's family for Dr. Myers to give update. Room received from ICU. Respiratory Therapist at bedside securing ETT. Patient continues to not be sedated with no response when called. Coughing continues to be noted though. Bagging continues via ETT. O2 sat 100%. Patient cleaned up and preparing to take up to ICU. 1329 - Report given to PULL TAB DEALER. 1335 - Patient transported to ICU with Markus Black, Anesthesia, INDUSTRIAL ECOLOGIST, Respiratory Therapist and Endo RN assistance.
[2024-01-29] MEDS: fentaNYL drip 100 ML 5 MCG CONT INF (13:45)
[2024-01-29] MEDS: dexMEDEtomidine 400 MCG in 0.9% Normal Saline (100mL Bag) 96 ML 7.3 MCG CONT INF (14:00)
--- NOTE | 2024-01-29 14:08 | RAD_ITS ---
STUDY: X-RAY - ABDOMEN/PELVIS REASON FOR EXAM: Male, 63 years old. Confirm OG placement -- Prior to admin of any med,fluid,flush,enteral feed TECHNIQUE: Single AP view of the abdomen / pelvis. COMPARISON: None. FINDINGS: The tip of the orogastric tube is in the distal body of the stomach. Increased markings at the left lung base. RAD/Abdomen Single View (Portable) IMPRESSION: The tip of the orogastric tube is in the distal portion of the body of the stomach. Increased markings at the left lung base suggestive of atelectasis and/or infiltrate. Electronically Signed: Bairon Combs MD at 14:36 EDT ,
--- NOTE | 2024-01-29 14:08 | RAD_ITS ---
STUDY: X-RAY CHEST REASON FOR EXAM: Male, 63 years old. To confirm ET placement -- Call wet read to MD TECHNIQUE: Single AP portable view of the chest. COMPARISON: None. FINDINGS: An endotracheal tube is in situ with the tip at 2.7 cm proximal to the brian. Orogastric tube is seen with the tip below the left hemidiaphragm. Increased markings at the left lung base suggestive of left basilar atelectasis and/or early infiltrate. There is no demonstrated pleural abnormality. Normal size heart. Normal mediastinum and ilsa. Normal visualized pulmonary arteries. Normal visualized aortic arch and descending thoracic aorta. Normal visualized thoracic spine. Normal visualized ribs, clavicles, and shoulders. There is no demonstrated abnormality of the visualized soft tissue structures of the upper abdomen. RAD/Chest 1 View (Portable) IMPRESSION: The tip of the endotracheal tube is at 2.7 cm proximal to the brian. The tip of the orogastric tube is below the left hemidiaphragm. Increased markings at the left lung base suggestive of either atelectasis and/or early infiltrate. Electronically Signed: Bairon Combs MD at 14:35 EDT ,
--- NOTE | 2024-01-29 14:21 | CPS ---
Patient intubated in Endo
--- NOTE | 2024-01-29 14:27 | NURSING ---
1400- Per Dr. Mooney max fentanyl to 200 mcg/hr
[2024-01-29] MEDS: 0.9% Normal Saline (1000mL) 1,000 ML 999 ML IV ×2 (14:34→19:29)
[2024-01-29 14:42] LABS: Allen Test Positive; Base Excess -5 mmol/L (-2 to +2); Bicarbonate 21.1 mmol/L (22-26); Blood Gas Specimen Type ART; Mode AC; O2 Delivery Device Adult Vent; PEEP 5; PO2 65 mmHG (75-100); RR 14; SITE R Radial; SO2 90 % (95-99); Total Carbon Dioxide 22 mmol/L; pCO2 42.7 mmHg (35-45)
[2024-01-29 14:48] LABS: Absolute Lymphocyte Count 0.49 X10^3/uL (0.83-4.51); Absolute Neutrophil Count 10.2 X10^3/uL (2.0-7.7); Basophil# 0.03 X10^3/uL; Basophil% 0.3 % (0-1); Eosinophil# 0.11 X10^3/uL; Hematocrit 24.6 % (40-54); Hemoglobin 7.8 g/dL (13.0-16.5); Lymphocyte # 0.49 X10^3/ul (0.83-4.51); Lymphocyte % 4.3 % (19-41); Mean Corp Hgb Conc 31.7 g/dL (32-36); Mean Corpuscular Hgb 26.6 pg (27.0-32.0); Mean Platelet Vol. 10.4 fl (6.2-12.0); Monocyte# 0.55 X10^3/uL; Monocyte% 4.8 % (0-10); NRBC Flagged by Analyzer 0 % (0-5); Neutrophil # 10.23 X10^3/uL (2.7-7.7); Neutrophil % 89.1 % (47-70); POSITIVE DIFFERENTIAL YES; Platelet Count 220 K/mm3 (150-450); RBC Distribution Width CV 14.6 % (11.6-14.6); RBC Distribution Width SD 44.9 fl (35.1-43.9); Red Blood Count 2.93 M/mm3 (4.6-6.2); White Blood Count 11.5 K/mm3 (4.4-11.0)
[2024-01-29] MEDS: Ipratropium/Albuterol Sulfate 3 ML AMPUL.NEB INHALATION ×3 (15:01→23:20)
--- NOTE | 2024-01-29 15:07 | PCM.HOSP.N ---
Hospitalist Note Patient went down to endoscopy today and NG tube was attempted and patient had very large copious coffee-ground emesis. Subsequently, anesthesia was concerned about his respiratory status and intubated the patient. Patient did undergo endoscopy which showed gastric outlet obstruction that was concerning to be malignant as well as some ulcers. I discussed with Dr. Myers stated that he was able to address the ulcers and are no longer an issue but is still concerned the patient may have an underlying malignancy. Patient was then transferred to the intensive care unit. I only found about the events after the patient was transferred to the unit and ordered chest x-ray, ABG, blood work and ventilator settings. Patient also started on ampicillin/sulbactam. Blood pressure has been low patient is receiving 1 L of saline wide open. It is unclear if patient will require pressor support. Bautista catheter placed in the intensive care unit. Chest x-ray was performed that showed a right lower lobe infiltrate with a ET tube in place above the brian. Abdominal x-ray that showed OG tube in place. Follow-up hemoglobin showed that it was stable at 7.8. ABG showed pH of 7.3, pCO2 42 and pO2 of 65. BMP currently pending. Case discussed with Dr. Folod who is aware and will be on consult for ventilator management. Discussed the case with the patient's son with management accounts manager. All questions were answered. Patient's son is aware of the potential for malignancy as well as the development of the pneumonia. Greater than 75 minutes of critical care time spent at bedside, reviewing data, discussing with the patient's son. Procedures Hospitalists Procedures: 26214 Critical Care 1st Hr
[2024-01-29 15:23] LABS: ALB/GLOB Ratio 0.6 RATIO (0.9-2.4); AST(SGOT) 22 U/L (15-37); Alanine Aminotransfer ALT/SGPT 16 U/L (16-61); Albumin, Serum 1.8 g/dL (3.2-5.0); Alkaline Phosphatase 51 U/L (45-117); Anion Gap 5 (5-15); BUN 10 mg/dL (7-18); BUN/Creat Ratio 15.2 RATIO (10-20); Chloride 111 mmol/L (98-107); Creatinine, Serum 0.66 mg/dL (0.70-1.30); EST Glomerular Filtration Rate 130 mL/min (>60); Est Glom Filt Rate - Afr Amer 157 mL/min (>60); Estimated Creatinine Clearance 87.32 ml/min; Glucose 164 mg/dL (74-106); Potassium 3.6 mmol/L (3.5-5.1); Protein, Total 4.8 g/dL (6.4-8.2); Sodium Level 139 mmol/L (136-145)
[2024-01-29] MEDS: Ampicillin/Sulbactam 3 GM in 0.9% Normal Saline (100mL MB+) 100 ML IV ×2 (17:13→23:28)
[2024-01-29] MEDS: fentaNYL drip 100 ML 20 MCG CONT INF ×2 (18:35→23:28)
[2024-01-29] MEDS: Chlorhexidine 15 ML PO (20:29)
[2024-01-29] MEDS: Pantoprazole Sodium 40 MG in 0.9% Normal Saline (100mL MB+) 100 ML 330 MG IV (20:30)
[2024-01-29] MEDS: dexMEDEtomidine 400 MCG in 0.9% Normal Saline (100mL Bag) 96 ML 17.5 MCG CONT INF (21:04)
--- NOTE | 2024-01-29 22:40 | EX.PCM.PN.GI ---
Subjective Subjective Patient underwent an upper endoscopy today, and was discovered to have a large amount of fluid in his stomach secondary to gastric outlet of structure. He also was discovered to have a very stenotic and ulcerated distal stomach most involving the insides region, and extend into the gastric an antrum. likely secondary to an underlying [place] versus severe by the word infection as he has no history of said usage. He he was intubated by anesthesia during the procedure due to multiple episodes of vomiting during the procedure. There was active bleeding seeing it was treated in the endoscopically during the procedure. He's now in the ICU on the vent. He went to CT scan of the chest admin pelvis . . Objective Data Objective Data Vital Signs: Vital Signs Temp Pulse Resp BP Pulse Ox O2 Del Method FiO2 97.8 F 59 L 14 83/51 L 98 Mechanical Ventilator 30 01/29/24 22:00 01/29/24 22:00 01/29/24 22:00 01/29/24 22:00 01/29/24 22:00 01/29/24 22:00 01/29/24 22:00 Oxygen Delivery Method Mechanical Ventilator Weight: 128 lb 11.999 oz Body Mass Index (BMI) 23.5 Intake & Output: Intake and Output for Last 24 Hours 01/27/24 01/28/24 01/29/24 23:59 23:59 23:59 Intake Total 482.67 / 482.67 4409.39 / 4409.39 Output Total 1230 / 1230 Balance 482.67 / 482.67 3179.39 / 3179.39 Medical Nutrition Assessment Dietitian: Malnutrition Criteria Met Start: 01/29/24 14:22 Freq: Status: Active Protocol: Document 01/29/24 14:22 AG (Rec: 01/29/24 14:22 [id number]) Nutrition Malnutrition Evidence of Malnutrition Exists Yes Malnutrition (severe): Chronic Evidenced By Suboptimal Energy Intake ( Severe),Weight Loss (Severe) Clinical Problem Chronic Disease or Condition Related Malnutrition Etiology severe, chronic malnutrition related to decreased PO intake d/t GI dysfunction Signs/Symptoms as evidenced by unintentional 8% wt loss, estimated PO intake meeting <75% of estiamted energy needs x 3 months Status Active Problem Recommendation Dietitian Recommendations/Changes recommend advance diet as tolerated to transitional; ensure w/ medpass when PO diet is advanced. Lab / Micro Data 01/29/24 14:40 01/29/24 14:40 Labs: Laboratory Results - last 24 hr 01/28/24 13:36: Crossmatch See Detail 01/29/24 02:31: Hgb 8.1 L, Hct 24.9 L, Sodium 141, Potassium 3.5, Chloride 111 H, Carbon Dioxide 25.0, Anion Gap 5, BUN 9, Creatinine 0.62 L, Estim Creat Clear Calc 92.96, Est GFR (MDRD) Af Amer 167, Est GFR (MDRD) Non-Af 138, BUN/Creatinine Ratio 14.5, Glucose 102, Calcium 7.2 L, Total Bilirubin 0.70, AST 17, ALT 16, Alkaline Phosphatase 52, Total Protein 4.8 L, Albumin 2.0 L, Globulin 2.8, Albumin/Globulin Ratio 0.7 L 01/29/24 07:15: WBC 4.7, RBC 2.89 L, Hgb 7.7 L, Hct 24.0 L, MCV 83.0, MCH 26.6 L, MCHC 32.1, RDW Std Deviation 44.5 H, RDW Coeff of Michael 14.6, Plt Count 202, MPV 10.6, Immature Gran % (Auto) 0.200, Neut % (Auto) 62.8, Lymph % (Auto) 18.1 L, Richardson % (Auto) 13.8 H, Eos % (Auto) 4.5, Baso % (Auto) 0.6, Absolute Neuts (auto) 3.0, Absolute Lymphs (auto) 0.85, Nucleated RBC % 0 01/29/24 14:40: WBC 11.5 H, RBC 2.93 L, Hgb 7.8 L, Hct 24.6 L, MCV 84.0, MCH 26.6 L, MCHC 31.7 L, RDW Std Deviation 44.9 H, RDW Coeff of Michael 14.6, Plt Count 220, MPV 10.4, Immature Gran % (Auto) 0.500, Neut % (Auto) 89.1 H, Lymph % (Auto) 4.3 L, Richardson % (Auto) 4.8, Eos % (Auto) 1.0, Baso % (Auto) 0.3, Absolute Neuts (auto) 10.2 H, Absolute Lymphs (auto) 0.49 L, Nucleated RBC % 0, Sodium 139, Potassium 3.6, Chloride 111 H, Carbon Dioxide 23.0, Anion Gap 5, BUN 10, Creatinine 0.66 L, Estim Creat Clear Calc 87.32, Est GFR (MDRD) Af Amer 157, Est GFR (MDRD) Non-Af 130, BUN/Creatinine Ratio 15.2, Glucose 164 H, Calcium 7.0 L, Total Bilirubin 0.50, AST 22, ALT 16, Alkaline Phosphatase 51, Total Protein 4.8 L, Albumin 1.8 L, Globulin 3.0, Albumin/Globulin Ratio 0.6 L ABG Data ABG results: ABG 01/29/24 14:38 Specimen Type ART Sample Site R Radial pH 7.30 L Bicarbonate Actual 21.1 L Total CO2 22 Base Excess -5 L O2 Saturation 90 L O2 % 40.0 ABG pCO2 42.7 ABG pO2 65 L Akira Test Positive Respiration Rate 14 O2 Delivery Device Adult Vent Vent Mode AC Tidal Volume 450.0 POC PEEP 5 Radiography Diagnostic Testing: Radiology Impression Chest/Abdomen/Pelvis CT 01/29/24 13:34 IMPRESSION: Consolidation of the dependent portion of the left upper, superior segment of left lower lobe and left base with tiny effusion and consolidation of the dependent portion of the right lower lobe with small effusion which may be consistent with aspiration pneumonia. Gastric distention with fluid and retained secretions proximal to severely narrowed antral pyloric and pyloroduodenal segments which may be on the basis of peptic ulcer disease. Electronically Signed: Servando Simpson MD at 17:13 EDT , Chest X-Ray 01/29/24 14:08 IMPRESSION: The tip of the endotracheal tube is at 2.7 cm proximal to the brian. The tip of the orogastric tube is below the left hemidiaphragm. Increased markings at the left lung base suggestive of either atelectasis and/or early infiltrate. Electronically Signed: Bairon Combs MD at 14:35 EDT , KUB X-Ray 01/29/24 14:08 IMPRESSION: The tip of the orogastric tube is in the distal portion of the body of the stomach. Increased markings at the left lung base suggestive of atelectasis and/or infiltrate. Electronically Signed: Bairon Combs MD at 14:36 EDT , Physical Exam Const alert Constitutional Narrative: intubated and sedated Resp normal respiratory effort, no retractions, no use of accessory muscles and clear to auscultation bilaterally Cardio regular rate, regular rhythm, S1 normal heart sound and S2 normal heart sound GI normal to inspection, nondistended, normoactive bowel sounds and soft to palpation GI Narrative: Epigastric abdominal pain without rebound. 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 Biopsies were taken. He has an OG tube. Continue OG tube to intermittent. Wait biopsies hopefully be able to extubate tomorrow. Follow H&H.
[2024-01-30] VITALS (35 sets, daily range): BP systolic 78–127; BP diastolic 49–77; PULSE 9–109; RESP 9–22; TEMP 36.4–37.1; O2SAT 90–99; BMI 23.9
[2024-01-30] MEDS: Ipratropium/Albuterol Sulfate 3 ML AMPUL.NEB INHALATION ×6 (02:29→23:29)
[2024-01-30] MEDS: dexMEDEtomidine 400 MCG in 0.9% Normal Saline (100mL Bag) 96 ML 17.5 MCG CONT INF (03:00)
[2024-01-30 03:20] LABS: Absolute Lymphocyte Count 0.93 X10^3/uL (0.83-4.51); Absolute Neutrophil Count 6.8 X10^3/uL (2.0-7.7); Basophil# 0.03 X10^3/uL; Basophil% 0.4 % (0-1); Eosinophil# 0.02 X10^3/uL; Eosinophils% 0.2 % (0-5); Hematocrit 24.2 % (40-54); Hemoglobin 7.6 g/dL (13.0-16.5); Lymphocyte # 0.93 X10^3/ul (0.83-4.51); Lymphocyte % 11.1 % (19-41); Mean Corp Hgb Conc 31.4 g/dL (32-36); Mean Corpuscular Hgb 26.3 pg (27.0-32.0); Mean Corpuscular Volume 83.7 fL (80-94); Mean Platelet Vol. 10.5 fl (6.2-12.0); Monocyte# 0.55 X10^3/uL; Monocyte% 6.6 % (0-10); NRBC Flagged by Analyzer 0 % (0-5); Neutrophil # 6.78 X10^3/uL (2.7-7.7); Neutrophil % 81.2 % (47-70); Platelet Count 202 K/mm3 (150-450); RBC Distribution Width CV 14.5 % (11.6-14.6); RBC Distribution Width SD 44.5 fl (35.1-43.9); Red Blood Count 2.89 M/mm3 (4.6-6.2); White Blood Count 8.4 K/mm3 (4.4-11.0)
[2024-01-30 03:38] LABS: ALB/GLOB Ratio 0.6 RATIO (0.9-2.4); AST(SGOT) 21 U/L (15-37); Alanine Aminotransfer ALT/SGPT 17 U/L (16-61); Albumin, Serum 1.9 g/dL (3.2-5.0); Alkaline Phosphatase 52 U/L (45-117); Anion Gap 7 (5-15); BUN 11 mg/dL (7-18); BUN/Creat Ratio 17.3 RATIO (10-20); Calcium,Total 7.3 mg/dL (8.5-10.1); Chloride 111 mmol/L (98-107); Creatinine, Serum 0.64 mg/dL (0.70-1.30); EST Glomerular Filtration Rate 134 mL/min (>60); Est Glom Filt Rate - Afr Amer 163 mL/min (>60); Estimated Creatinine Clearance 90.05 ml/min; Globulin 3.1 g/dL (2.2-4.2); Glucose 115 mg/dL (74-106); Potassium 3.4 mmol/L (3.5-5.1); Sodium Level 139 mmol/L (136-145)
[2024-01-30] MEDS: TITRATION PARAMETER CHANGE 1 EACH IV (05:51)
[2024-01-30] MEDS: Ampicillin/Sulbactam 3 GM in 0.9% Normal Saline (100mL MB+) 100 ML IV ×3 (05:51→17:37)
--- NOTE | 2024-01-30 06:25 | EX.PCM.CONCC ---
Assessment & Plan Assessment/Plan (1) Acute hypoxemic respiratory failure: PLAN: Plan RECOMMENDATIONS: 1. Continue assist-control mode of mechanical ventilation. Wean FiO2 and PEEP to maintain saturations at or above 90%. 2. Continue Precedex and fentanyl for sedation. 3. Continue empiric antimicrobials. Sputum culture is pending. 4. Continue PPI therapy. 5. I would recommend that the patient remain intubated for at least the next 24 hours to ensure no further issues from a gastroenterology perspective. 6. Continue to monitor H&H and transfuse if hemoglobin drops below 7 g/dL. 7. Potassium repletion as needed. IMPRESSIONS: 1. Acute hypoxemic respiratory failure The patient was intubated during his upper endoscopy after he experienced large-volume coffee-ground emesis with concern for aspiration on chest imaging. Plan to continue current supportive care including invasive mechanical ventilatory support. FiO2 and PEEP will be weaned as tolerated. The patient has been initiated on appropriate antimicrobial therapy, which will be continued pending sputum culture results. I would recommend that the patient remain intubated for at least the next 24 hours to ensure stability in his blood counts and to make sure that he does not require any further endoscopic evaluation. 2. Concern for gastric outlet obstruction secondary to underlying malignancy/acute blood loss anemia secondary to upper GI bleed Awaiting biopsy results. Gastroenterology is following. Continue PPI therapy as ordered. Recommend transfusing blood products if hemoglobin drops below 7 g/dL. TIME: 36 minutes of critical care time, independent of procedures, was spent addressing the patient's acute hypoxemic respiratory failure, possible gastric outlet obstruction secondary to malignancy, acute blood loss anemia, review of all data and collaboration with the care team. HPI Consult Data Date of Consult: 01/30/24 HPI Narrative Reason for Consultation: Acute respiratory failure HPI Narrative: The patient is a 63-year-old male, with a history as outlined below, who presented initially to the emergency department on January 27 with epigastric pain, nausea, decreased appetite and weight loss. History pertinent to the patient's hospitalization was obtained primarily via chart review, as the patient is currently intubated and there is no family available at the bedside. The patient is predominantly Slovak-speaking, but apparently had no significant prior medical history. On presentation to the emergency department, the patient was documented to be afebrile and hemodynamically stable. He was maintaining appropriate oxygen saturations on room air. Initial laboratory evaluation revealed a normal white blood cell count with a presenting hemoglobin of 6.8 g/dL. Platelet count was normal. Chemistry profile was notable for a potassium of 3.1 with normal liver function profile and lipase. CT chest/abdomen/pelvis was obtained with bilateral airspace consolidation noted along with a soft tissue density in the gastric fundus. The patient was initially started on a Protonix infusion and antiemetics. He was admitted to the medical surgical floor, pending evaluation by gastroenterology. Packed red blood cells were administered. On the afternoon of January 28, the patient was taken to endoscopy to undergo an EGD. The procedure demonstrated evidence of erosive esophagitis with retained gastric fluid and a spurting gastric ulcer with a visible vessel that was injected and treated with a heater probe. According to secondhand reporting, the patient apparently decompensated from a respiratory perspective while in endoscopy after experiencing large-volume coffee-ground emesis. He was subsequently intubated by anesthesia providers. Overnight, the patient has remained clinically stable on assist-control mode of mechanical ventilation. He currently has an FiO2 requirement of 30% and PEEP of 5. He remains on empiric antimicrobials along with Precedex and fentanyl for sedation. Hemoglobin appears relatively stable at 7.6 g/dL. [facility] Medical History (Updated 01/30/24 @ 07:[address] uJan Ramon Flood DO) GI bleed Medical History no medical history Home Medications esomeprazole magnesium 20 mg capsule,delayed release (Nexium 24HR) 20 mg PO DAILY 01/28/24 [History Last Taken 01/28/24] Allergy/AdvReac Type Severity Reaction Status Date / Time No Known Allergies Allergy Verified 01/28/24 12:36 Family History (Updated 01/28/24 @ 19:[address] Chelly Sommer MD) Mother No problems noted. Father No problems noted. Family History other Surgical History No history of previous surgery Surgical History no surgical history Social History (Updated 01/28/24 @ 19:[address] Chelly Sommer MD) household members: family current gender identity: male Smoking Status: Never smoker alcohol intake: never substance use type: does not use ROS Review of Systems ROS Unobtainable: due to endotracheal tube Physical Exam Const Constitutional Narrative: Intubated, sedated and mechanically ventilated. No ventilator dyssynchrony noted. HEENT normocephalic and head/scalp atraumatic Eyes PERRL and conjunctivae normal Neck supple General: trachea midline Chest inspection of chest normal Resp normal respiratory effort Auscultation: Negative for rales, rhonchi or wheezes Cardio regular rate and regular rhythm GI normal to inspection, nondistended, normoactive bowel sounds Extremity no clubbing, cyanosis or edema Skin no rashes or lesions noted Neuro Sensorium / Orientation: sedated on vent Medical Records Data Medical Nutrition Assessment Dietitian: Malnutrition Criteria Met Start: 01/29/24 14:22 Freq: Status: Active Protocol: Document 01/29/24 14:22 AG (Rec: 01/29/24 14:22 AG [id number]) Nutrition Malnutrition Evidence of Malnutrition Exists Yes Malnutrition (severe): Chronic Evidenced By Suboptimal Energy Intake ( Severe),Weight Loss (Severe) Clinical Problem Chronic Disease or Condition Related Malnutrition Etiology severe, chronic malnutrition related to decreased PO intake d/t GI dysfunction Signs/Symptoms as evidenced by unintentional 8% wt loss, estimated PO intake meeting <75% of estiamted energy needs x 3 months Status Active Problem Recommendation Dietitian Recommendations/Changes recommend advance diet as tolerated to transitional; ensure w/ medpass when PO diet is advanced. Lab / Micro Data 01/30/24 03:10 01/30/24 03:10 Labs: Laboratory Results - last 24 hr 01/29/24 07:15: WBC 4.7, RBC 2.89 L, Hgb 7.7 L, Hct 24.0 L, MCV 83.0, MCH 26.6 L, MCHC 32.1, RDW Std Deviation 44.5 H, RDW Coeff of Michael 14.6, Plt Count 202, MPV 10.6, Immature Gran % (Auto) 0.200, Neut % (Auto) 62.8, Lymph % (Auto) 18.1 L, [place] % (Auto) 13.8 H, Eos % (Auto) 4.5, Baso % (Auto) 0.6, Absolute Neuts (auto) 3.0, Absolute Lymphs (auto) 0.85, Nucleated RBC % 0 01/29/24 14:40: WBC 11.5 H, RBC 2.93 L, Hgb 7.8 L, Hct 24.6 L, MCV 84.0, MCH 26.6 L, MCHC 31.7 L, RDW Std Deviation 44.9 H, RDW Coeff of Michael 14.6, Plt Count 220, MPV 10.4, Immature Gran % (Auto) 0.500, Neut % (Auto) 89.1 H, Lymph % (Auto) 4.3 L, [place] % (Auto) 4.8, Eos % (Auto) 1.0, Baso % (Auto) 0.3, Absolute Neuts (auto) 10.2 H, Absolute Lymphs (auto) 0.49 L, Nucleated RBC % 0, Sodium 139, Potassium 3.6, Chloride 111 H, Carbon Dioxide 23.0, Anion Gap 5, BUN 10, Creatinine 0.66 L, Estim Creat Clear Calc 87.32, Est GFR (MDRD) Af Amer 157, Est GFR (MDRD) Non-Af 130, BUN/Creatinine Ratio 15.2, Glucose 164 H, Calcium 7.0 L, Total Bilirubin 0.50, AST 22, ALT 16, Alkaline Phosphatase 51, Total Protein 4.8 L, Albumin 1.8 L, Globulin 3.0, Albumin/Globulin Ratio 0.6 L 01/30/24 03:10: WBC 8.4, RBC 2.89 L, Hgb 7.6 L, Hct 24.2 L, MCV 83.7, MCH 26.3 L, MCHC 31.4 L, RDW Std Deviation 44.5 H, RDW Coeff of Michael 14.5, Plt Count 202, MPV 10.5, Immature Gran % (Auto) 0.500, Neut % (Auto) 81.2 H, Lymph % (Auto) 11.1 L, [place] % (Auto) 6.6, Eos % (Auto) 0.2, Baso % (Auto) 0.4, Absolute Neuts (auto) 6.8, Absolute Lymphs (auto) 0.93, Nucleated RBC % 0, Sodium 139, Potassium 3.4 L, Chloride 111 H, Carbon Dioxide 21.0, Anion Gap 7, BUN 11, Creatinine 0.64 L, Estim Creat Clear Calc 90.05, Est GFR (MDRD) Af Amer 163, Est GFR (MDRD) Non-Af 134, BUN/Creatinine Ratio 17.3, Glucose 115 H, Calcium 7.3 L, Total Bilirubin 0.60, AST 21, ALT 17, Alkaline Phosphatase 52, Total Protein 5.0 L, Albumin 1.9 L, Globulin 3.1, Albumin/Globulin Ratio 0.6 L ABG Data ABG results: ABG 01/29/24 14:38 Specimen Type ART Sample Site R Radial pH 7.30 L Bicarbonate Actual 21.1 L Total CO2 22 Base Excess -5 L O2 Saturation 90 L O2 % 40.0 ABG pCO2 42.7 ABG pO2 65 L Akira Test Positive Respiration Rate 14 O2 Delivery Device Adult Vent Vent Mode AC Tidal Volume 450.0 POC PEEP 5 Imaging Radiology Impression Chest/Abdomen/Pelvis CT 01/29/24 13:34 IMPRESSION: Consolidation of the dependent portion of the left upper, superior segment of left lower lobe and left base with tiny effusion and consolidation of the dependent portion of the right lower lobe with small effusion which may be consistent with aspiration pneumonia. Gastric distention with fluid and retained secretions proximal to severely narrowed antral pyloric and pyloroduodenal segments which may be on the basis of peptic ulcer disease. Electronically Signed: Servando Simpson MD at 17:13 EDT Reading Location ID and State: [facility] / [place] Tel , Service support , Chest X-Ray 01/29/24 14:08 IMPRESSION: The tip of the endotracheal tube is at 2.7 cm proximal to the brian. The tip of the orogastric tube is below the left hemidiaphragm. Increased markings at the left lung base suggestive of either atelectasis and/or early infiltrate. Electronically Signed: Bairon Combs MD at 14:35 EDT , KUB X-Ray 01/29/24 14:08 IMPRESSION: The tip of the orogastric tube is in the distal portion of the body of the stomach. Increased markings at the left lung base suggestive of atelectasis and/or infiltrate. Electronically Signed: Bairon Combs MD at 14:36 EDT , Charges/Coding Procedures Hospitalists Procedures: 42154 Critical Care 1st Hr
[2024-01-30] MEDS: fentaNYL drip 100 ML 10 MCG CONT INF (06:43)
--- NOTE | 2024-01-30 07:09 | PCM.PN.HOSP ---
Reason for Visit Reason for Visit: Diagnoses Acute posthemorrhagic anemia (01/28/24) Gastrointestinal hemorrhage, unspecified (01/28/24) Abnormal weight loss (01/28/24) Subjective Subjective Spontaneous breathing trial today and became agitated afterwards. Was placed back on the ventilator. Objective Data Objective Data Vital Signs: Vital Signs Temp Pulse Resp BP Pulse Ox O2 Del Method FiO2 36.8 C 102 H 17 97/52 L 97 Mechanical Ventilator 30 01/30/24 04:00 01/30/24 07:00 01/30/24 07:00 01/30/24 07:00 01/30/24 07:00 01/30/24 07:00 01/30/24 07:00 Oxygen Delivery Method Mechanical Ventilator Weight: 59 kg Body Mass Index (BMI) 23.9 Intake & Output: Intake and Output for Last 24 Hours 01/28/24 01/29/24 01/30/24 23:59 23:59 23:59 Intake Total 482.67 / 482.67 4456.22 / 4514.39 493.73 / 493.73 Output Total 1580 / 1580 450 / 450 Balance 482.67 / 482.67 2876.22 / 2934.39 43.73 / 43.73 Medical Nutrition Assessment Dietitian: Malnutrition Criteria Met Start: 01/29/24 14:22 Freq: Status: Active Protocol: Document 01/29/24 14:22 (Rec: 01/29/24 14:22 [id number]) Nutrition Malnutrition Evidence of Malnutrition Exists Yes Malnutrition (severe): Chronic Evidenced By Suboptimal Energy Intake ( Severe),Weight Loss (Severe) Clinical Problem Chronic Disease or Condition Related Malnutrition Etiology severe, chronic malnutrition related to decreased PO intake d/t GI dysfunction Signs/Symptoms as evidenced by unintentional 8% wt loss, estimated PO intake meeting <75% of estiamted energy needs x 3 months Status Active Problem Recommendation Dietitian Recommendations/Changes recommend advance diet as tolerated to transitional; ensure w/ medpass when PO diet is advanced. Lab / Micro Data 01/30/24 03:10 01/30/24 03:10 Labs: Laboratory Results - last 24 hr 01/29/24 07:15: WBC 4.7, RBC 2.89 L, Hgb 7.7 L, Hct 24.0 L, MCV 83.0, MCH 26.6 L, MCHC 32.1, RDW Std Deviation 44.5 H, RDW Coeff of Michael 14.6, Plt Count 202, MPV 10.6, Immature Gran % (Auto) 0.200, Neut % (Auto) 62.8, Lymph % (Auto) 18.1 L, [place] % (Auto) 13.8 H, Eos % (Auto) 4.5, Baso % (Auto) 0.6, Absolute Neuts (auto) 3.0, Absolute Lymphs (auto) 0.85, Nucleated RBC % 0 01/29/24 14:40: WBC 11.5 H, RBC 2.93 L, Hgb 7.8 L, Hct 24.6 L, MCV 84.0, MCH 26.6 L, MCHC 31.7 L, RDW Std Deviation 44.9 H, RDW Coeff of Michael 14.6, Plt Count 220, MPV 10.4, Immature Gran % (Auto) 0.500, Neut % (Auto) 89.1 H, Lymph % (Auto) 4.3 L, [place] % (Auto) 4.8, Eos % (Auto) 1.0, Baso % (Auto) 0.3, Absolute Neuts (auto) 10.2 H, Absolute Lymphs (auto) 0.49 L, Nucleated RBC % 0, Sodium 139, Potassium 3.6, Chloride 111 H, Carbon Dioxide 23.0, Anion Gap 5, BUN 10, Creatinine 0.66 L, Estim Creat Clear Calc 87.32, Est GFR (MDRD) Af Amer 157, Est GFR (MDRD) Non-Af 130, BUN/Creatinine Ratio 15.2, Glucose 164 H, Calcium 7.0 L, Total Bilirubin 0.50, AST 22, ALT 16, Alkaline Phosphatase 51, Total Protein 4.8 L, Albumin 1.8 L, Globulin 3.0, Albumin/Globulin Ratio 0.6 L 01/30/24 03:10: WBC 8.4, RBC 2.89 L, Hgb 7.6 L, Hct 24.2 L, MCV 83.7, MCH 26.3 L, MCHC 31.4 L, RDW Std Deviation 44.5 H, RDW Coeff of Michael 14.5, Plt Count 202, MPV 10.5, Immature Gran % (Auto) 0.500, Neut % (Auto) 81.2 H, Lymph % (Auto) 11.1 L, [place] % (Auto) 6.6, Eos % (Auto) 0.2, Baso % (Auto) 0.4, Absolute Neuts (auto) 6.8, Absolute Lymphs (auto) 0.93, Nucleated RBC % 0, Sodium 139, Potassium 3.4 L, Chloride 111 H, Carbon Dioxide 21.0, Anion Gap 7, BUN 11, Creatinine 0.64 L, Estim Creat Clear Calc 90.05, Est GFR (MDRD) Af Amer 163, Est GFR (MDRD) Non-Af 134, BUN/Creatinine Ratio 17.3, Glucose 115 H, Calcium 7.3 L, Total Bilirubin 0.60, AST 21, ALT 17, Alkaline Phosphatase 52, Total Protein 5.0 L, Albumin 1.9 L, Globulin 3.1, Albumin/Globulin Ratio 0.6 L ABG Data ABG results: ABG 01/29/24 14:38 Specimen Type ART Sample Site R Radial pH 7.30 L Bicarbonate Actual 21.1 L Total CO2 22 Base Excess -5 L O2 Saturation 90 L O2 % 40.0 ABG pCO2 42.7 ABG pO2 65 L Akira Test Positive Respiration Rate 14 O2 Delivery Device Adult Vent Vent Mode AC Tidal Volume 450.0 POC PEEP 5 Radiography Diagnostic Testing: Radiology Impression Chest/Abdomen/Pelvis CT 01/29/24 13:34 IMPRESSION: Consolidation of the dependent portion of the left upper, superior segment of left lower lobe and left base with tiny effusion and consolidation of the dependent portion of the right lower lobe with small effusion which may be consistent with aspiration pneumonia. Gastric distention with fluid and retained secretions proximal to severely narrowed antral pyloric and pyloroduodenal segments which may be on the basis of peptic ulcer disease. Electronically Signed: Servando Simpson MD at 17:13 EDT , Chest X-Ray 01/29/24 14:08 IMPRESSION: The tip of the endotracheal tube is at 2.7 cm proximal to the brian. The tip of the orogastric tube is below the left hemidiaphragm. Increased markings at the left lung base suggestive of either atelectasis and/or early infiltrate. Electronically Signed: Bairon Combs MD at 14:35 EDT , KUB X-Ray 01/29/24 14:08 IMPRESSION: The tip of the orogastric tube is in the distal portion of the body of the stomach. Increased markings at the left lung base suggestive of atelectasis and/or infiltrate. Electronically Signed: Bairon Combs MD at 14:36 EDT , Physical Exam Const alert Constitutional Narrative: On the ventilator. Able to write in French. HEENT head/scalp atraumatic and moist oral mucous membranes Resp normal respiratory effort, no retractions, no use of accessory muscles and clear to auscultation bilaterally Cardio regular rate, regular rhythm, S1 normal heart sound and S2 normal heart sound GI normal to inspection, nondistended, normoactive bowel sounds, soft to palpation, non-tender and non-distended Neuro Sensorium / Orientation: awake and alert Psych affect normal Assessment & Plan Assessment/Plan (1) Acute upper GI bleed: PLAN: Plan Acute GI Bleed due to PUD IV PPI EGD showed erosive esophagitis, spurting gastric ulcers with visible vessel that was injected. Gastric stenosis at the pylorus that was dilated Acute Blood Loss Anemia: 2/2 GIB Admission Hgb 6.8, unclear prior baseline, improved to 7.7 after 1 unit PRBC Acute hypoxic respiratory failure 2/2 aspiration event when NGT was attempted in OR and pt had copious amount of coffee-ground emesis intubated on 01/28 Plan to be monitor the patient overnight and hopefully extubate him on the . Aspiration pneumonia on amp/SB BDs GOO dilated Biopsied Hypokalemia: Admission K+ 3.1, magnesium requested, supplementation given, repeat level in AM. DVT prophylaxis: SCDs. Greater than 65 minutes of which greater than 50% of time was communicating with the patient the speaking, writing, with the help of Google translate to help with some of the interpretations. Also discussing with one of the patient's son and answering all questions. Did discuss with the patient about the necessity of keeping the endotracheal tube in for now. He expressed understanding with plan for potentially removing that tomorrow. Charges/Coding Visit Charges Inpatient E&M: 20756 Subs Hosp L3
[2024-01-30] MEDS: CHLORHEXIDINE GLUC 2% CLOTH 1 EACH TOWELETTE TOPICAL (08:17)
[2024-01-30] MEDS: dexMEDEtomidine 400 MCG in 0.9% Normal Saline (100mL Bag) 96 ML 22.1 MCG CONT INF (08:17)
[2024-01-30] MEDS: Chlorhexidine 15 ML PO ×2 (08:17→22:00)
[2024-01-30] MEDS: Pantoprazole Sodium 40 MG in 0.9% Normal Saline (100mL MB+) 100 ML 330 MG IV ×2 (08:19→20:34)
[2024-01-30] MEDS: Potassium Chloride IVPB 40 MEQ 100 MEQ IV BOLUS ×4 (10:09→14:06)
--- NOTE | 2024-01-30 11:41 | EKG12_ITS ---
Test Reason : Blood Pressure : / mmHG Vent. Rate : 108 BPM Atrial Rate : 108 BPM P-R Int : 154 ms QRS Dur : 086 ms QT Int : 502 ms P-R-T Axes : 049 043 082 degrees QTc Int : 672 ms Critical Test Result: Long QTc , STEMI Sinus tachycardia ST elevation consider inferolateral injury or acute infarct Prolonged QT Confirmed by DAVY CHIANG, GIOVANA ([id number]), photography editor ALISA VANCE ([id number]) on 01/31/2024 10:53:07 AM Referred By: Vinicio Confirmed By:GIOVANA BHATTI MD
[2024-01-30] MEDS: Dexmedetomidine 1,000 mcg in 0.9% NS 240 mL 22.1 MCG CONT INF (12:20)
[2024-01-30] MEDS: fentaNYL drip 100 ML 20 MCG CONT INF ×3 (12:22→22:56)
--- NOTE | 2024-01-30 16:21 | CASEMGMT ---
RN?CM?HVAC INSTALLER?CM?to room to meet with patient for initial transition planning/care coordination?assessment.?RN?CM?introduced self and role at [facility].? Pt currently intubated, but is awake and answering questions appropriately. Pt able to communicate via gestures and also writing on clipboard. Pt's son, Giovanni, is at bedside. Pt and Juan's primary language is Kenyan w/minimal Armenian understanding. The following information obtained from pt and son Giovanni, using budget record clerk tablet. Care providers, pharmacy, and demographics verified/updated at this time. PCP: No PCP. Provided w/list of local PCP's in network w/pt's insurance and also provided w/[facility] info in Kenyan. Specialists: none Preferred Pharmacy: [facility] Insurance: [employer] LNOK: currently lives in [place] country per budget record clerk Pt has 5 children in [place] and others in their country. 2 of his sons in [place] are: Juan and Giovanni. Granddaughter, Raven (speaks Armenian) Living Arrangements: Lives w/son, Juan, in 2-story home w/basement and 1 step to enter. Pt lives on the main floor and Juan lives on 2nd floor. Pt is independent @ [employer] and works. Juan gets the groceries. Transportation:?Pt does not drive. He walks most places and per Giovanni, his job is 3-4 min away. DME: ?none Per Giovanni, pt wishes to return home and states has no concerns with going home at time of discharge at this time. Pt and Juan voiced concern re: when he was in restraints and the call light and RN made aware. Questions answered. They voice no further concerns/needs at this time.? Advised them to ask for?CM?if any further questions/concerns/needs arise.? They voices understanding. PLAN:??Home CM/SW to follow for any discharge planning needs. Jeremie CORNELLN?RN?CM
[2024-01-30 17:37] LABS: Hematocrit 24.2 % (40-54); Hemoglobin 7.8 g/dL (13.0-16.5)
[2024-01-31] VITALS (40 sets, daily range): BP systolic 75–110; BP diastolic 50–67; PULSE 71–106; RESP 14–21; TEMP 36.8–37.2; O2SAT 92–100; BMI 23.8; BMI 24.7
--- NOTE | 2024-01-31 | GASB_PTH ---
PATIENT: KAILA MARQUEZ LOC: ICU U#:[id number] AGE/SX: 63/M ROOM: ICU05 RE01/28/[address]: Dr. Sean Mooney DO : 1960 BED: 1 DIS: 01/31/2024 SPEC #: [id number] RECD: 01/31/24 14:59 STATUS: SOUHarry REQ #: [id number] KINGS: 01/31/24 00:[address]: Yusef Myers DEPT: SURGICAL PATHOLOGY RECD BY: Timothy Lockhart ENTERED: 02/03/24 10:21 SP TYPE: Gastric Bx OTHR DR: MD Dr. Kj Mobley MD Dr. Autumn L White, MD Dr. Derek Brown, DO Dr. Eric Jopperi, DO Dr. Edward Matheis, MD Dr. Gautam Baskaran, MD Dr. Yordanos Habtegebriel, MD Dr. Hemant Dand, MD Dr. Kimber Foust, MD Dr. Lamia Aljundi, MD Dr. Pritam Ghosh, MD Dr. Pavan Irukulla, MD Dr. Saad Farooqi, MD Dr. Vikram Anand, MD Dr. William Haden, MD No Primary Care Phys Tissues: Gastric mucous membrane Procedures: Surgery Specimen Level IV Comments: @ Ordering doctor for SUIV edited from to @ patric PANG at 02/03/24 1316 @ Submitting doctor edited from to @ patric PANG at 02/03/24 1316 HEADER OPERATION: EGD biopsy PRE-OP DIAGNOSIS: GI bleed TISSUE SUBMITTED: Gastric mass biopsy MICROSCOPIC DIAGNOSIS Gastric mass, biopsy: Poorly differentiated invasive adenocarcinoma. See comment. ABNER/ 02/04/2024 COMMENT Immunohistochemistry ([id number]) supports the above diagnosis. Molecular studies on the tumor can be performed if clinically indicated, please notify the laboratory if they are need. Immunohistochemistry ([id number]) for microsatellite instability (mismatch repair of protein) will be performed and the results will be reported separately. Please also make reference to additional specimen [id number], gastric ulcer, biopsy with diagnosis of poorly differentiated invasive adenocarcinoma. This case is discussed with Dr. Nugent from [facility] on 02/04/24 MICROSCOPIC DESCRIPTION Slides are reviewed. GROSS DESCRIPTION Received in fixative is one container labeled with the patient's name and designated Gastric mass biopsy. The specimen consists of multiple irregular fragments of light richardson soft tissue that in aggregate measure 2.0 x 0.3 x 0.1 cm. The specimen is totally submitted in one cassette. ABNER/ 02/03/2024 TC:0 CPT:57143
[2024-01-31] MEDS: Ampicillin/Sulbactam 3 GM in 0.9% Normal Saline (100mL MB+) 100 ML IV ×4 (00:13→17:59)
[2024-01-31] MEDS: Dexmedetomidine 1,000 mcg in 0.9% NS 240 mL 22.1 MCG CONT INF ×2 (00:39→12:15)
[2024-01-31] MEDS: Ipratropium/Albuterol Sulfate 3 ML AMPUL.NEB INHALATION ×5 (03:45→19:01)
[2024-01-31 03:56] LABS: Anion Gap 6 (5-15); BUN 8 mg/dL (7-18); BUN/Creat Ratio 15.3 RATIO (10-20); Calcium,Total 7.3 mg/dL (8.5-10.1); Chloride 106 mmol/L (98-107); Creatinine, Serum 0.52 mg/dL (0.70-1.30); EST Glomerular Filtration Rate 169 mL/min (>60); Est Glom Filt Rate - Afr Amer 205 mL/min (>60); Estimated Creatinine Clearance 110.83 ml/min; Glucose 94 mg/dL (74-106); Potassium 3.5 mmol/L (3.5-5.1); Sodium Level 136 mmol/L (136-145)
[2024-01-31] MEDS: fentaNYL drip 100 ML 20 MCG CONT INF ×4 (03:56→20:02)
[2024-01-31 06:55] LABS: Absolute Lymphocyte Count 0.44 X10^3/uL (0.83-4.51); Absolute Neutrophil Count 6.8 X10^3/uL (2.0-7.7); Basophil# 0.05 X10^3/uL; Basophil% 0.6 % (0-1); Eosinophil# 0.16 X10^3/uL; Hemoglobin 7.8 g/dL (13.0-16.5); Lymphocyte # 0.44 X10^3/ul (0.83-4.51); Lymphocyte % 5.4 % (19-41); Mean Corp Hgb Conc 32.5 g/dL (32-36); Mean Corpuscular Hgb 26.9 pg (27.0-32.0); Mean Corpuscular Volume 82.8 fL (80-94); Mean Platelet Vol. 10.9 fl (6.2-12.0); Monocyte# 0.57 X10^3/uL; NRBC Flagged by Analyzer 0 % (0-5); Neutrophil # 6.84 X10^3/uL (2.7-7.7); Neutrophil % 84.6 % (47-70); POSITIVE DIFFERENTIAL YES; Platelet Count 166 K/mm3 (150-450); RBC Distribution Width CV 14.9 % (11.6-14.6); RBC Distribution Width SD 45.1 fl (35.1-43.9); White Blood Count 8.1 K/mm3 (4.4-11.0)
--- NOTE | 2024-01-31 06:56 | PN.HOSP_ITS ---
Reason for Visit Reason for Visit: Diagnoses Acute posthemorrhagic anemia (01/28/24) Acute respiratory failure with hypoxia (01/28/24) Gastrointestinal hemorrhage, unspecified (01/28/24) Abnormal weight loss (01/28/24) Subjective Subjective Still on ventilator. Had aspiration event. Objective Data Objective Data Vital Signs: Vital Signs Temp Pulse Resp BP Pulse Ox O2 Del Method FiO2 37.1 C 77 14 97/62 94 Mechanical Ventilator 25 01/31/24 06:00 01/31/24 06:00 01/31/24 06:00 01/31/24 06:00 01/31/24 04:16 01/31/24 06:00 01/31/24 04:16 Oxygen Delivery Method Mechanical Ventilator Weight: 61.5 kg Body Mass Index (BMI) 24.7 Intake & Output: Intake and Output for Last 24 Hours 01/29/24 01/30/24 01/31/24 23:59 23:59 23:59 Intake Total 4456.22 / 4514.39 2110.66 / 2130.66 482.24 / 482.24 Output Total 1580 / 1580 2200 / 2200 475 / 475 Balance 2876.22 / 2934.39 -89.34 / -69.34 7.24 / 7.24 Medical Nutrition Assessment Dietitian: Malnutrition Criteria Met Start: 01/29/24 14:22 Freq: Status: Active Protocol: Document 01/29/24 14:22 (Rec: 01/29/24 14:22 [id number]) Nutrition Malnutrition Evidence of Malnutrition Exists Yes Malnutrition (severe): Chronic Evidenced By Suboptimal Energy Intake ( Severe),Weight Loss (Severe) Clinical Problem Chronic Disease or Condition Related Malnutrition Etiology severe, chronic malnutrition related to decreased PO intake d/t GI dysfunction Signs/Symptoms as evidenced by unintentional 8% wt loss, estimated PO intake meeting <75% of estiamted energy needs x 3 months Status Active Problem Recommendation Dietitian Recommendations/Changes recommend advance diet as tolerated to transitional; ensure w/ medpass when PO diet is advanced. Lab / Micro Data 01/31/24 03:20 01/31/24 03:20 Labs: Laboratory Results - last 24 hr 01/28/24 13:36: Crossmatch See Detail 01/30/24 17:30: Hgb 7.8 L, Hct 24.2 L 01/31/24 03:20: Sodium 136, Potassium 3.5, Chloride 106, Carbon Dioxide 24.0, Anion Gap 6, BUN 8, Creatinine 0.52 L, Estim Creat Clear Calc 110.83, Est GFR (MDRD) Af Amer 205, Est GFR (MDRD) Non-Af 169, BUN/Creatinine Ratio 15.3, Glucose 94, Calcium 7.3 L Micro: Microbiology 01/29/24 14:15 Sputum, Induced/Lukens Gram Stain - Final Physical Exam Const Constitutional Narrative: intubated, sedated. Resp normal respiratory effort, no retractions, no use of accessory muscles and clear to auscultation bilaterally Cardio regular rate, regular rhythm, S1 normal heart sound and S2 normal heart sound GI normal to inspection, nondistended, normoactive bowel sounds and soft to palpation Neuro Sensorium / Orientation: awake and alert Assessment & Plan Assessment/Plan (1) Acute upper GI bleed: PLAN: Plan Acute GI Bleed * due to PUD * IV PPI * EGD showed erosive esophagitis, spurting gastric ulcers with visible vessel that was injected. 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 Aspiration pneumonia * on amp/SB * BDs GOO * dilated * Biopsied Hypokalemia: Admission K+ 3.1, magnesium requested, supplementation given, repeat level in AM. DVT prophylaxis: SCDs. Charges/Coding Visit Charges Inpatient E&M: 99241 Subs Hosp L2
--- NOTE | 2024-01-31 08:48 | PN.CC_ITS ---
Objective Data Objective Data Vital Signs: Vital Signs Last response Temperature 37.0 C 01/31/24 08:00 Temperature Source Temporal 01/31/24 08:00 Pulse Rate 94 01/31/24 08:00 Pulse Strength Normal (2+) 01/30/24 08:24 Respiratory Rate 17 01/31/24 08:00 Respiratory Effort Mechanically Ventilated 01/31/24 00:00 Respiratory Depth Normal 01/31/24 00:00 Respiratory Pattern Normal 01/31/24 04:16 Blood Pressure 99/59 L 01/31/24 08:00 Blood Pressure Mean 72 01/31/24 08:00 Blood Pressure Source Monitor 01/31/24 08:00 Blood Pressure Position Semi-Fowlers 01/31/24 08:00 Blood Pressure Location Left Arm 01/31/24 08:00 Pulse Ox 94 01/31/24 08:00 Oxygen Delivery Method Mechanical Ventilator 01/31/24 08:00 Fraction of Inspired Oxygen (FIO2) 25 01/31/24 08:00 I&O: I&O Last 24 Hours 01/30/24 01/30/24 01/31/24 11:59 23:59 11:59 Intake Total 938.96 / 2130.66 1171.70 / 2130.66 566.44 / 566.44 Output Total 750 / 2200 1450 / 2200 475 / 475 Balance 188.96 / -69.34 -278.30 / -69.34 91.44 / 91.44 I&O: Total Stay 01/28/24 12:13 thru 01/31/24 08:00 Intake Total 7615.99 Output Total 4255 Balance 3360.99 Current Meds Ordered / Administered: Current meds ordered / Administered Generic Name Dose Route Start Last Admin Trade Name Freq PRN Reason Stop Dose Admin Albuterol Sulfate 2.5 mg 01/29/24 14:44 Albuterol 2.5 Mg/3 Ml Vial.Neb. INHALATION Q2H PRN PRN SHORTNESS OF BREATH Albuterol/Ipratropium 3 ml 01/29/24 14:44 01/31/24 07:10 Ipratropium/Albuterol Sulfate 3 Ml Ampul.Neb INHALATION 3 ml Q4H.RT DONALD Administration Chlorhexidine Gluconate 15 ml 01/29/24 22:00 01/30/24 22:00 Chlorhexidine 15 Ml PO 15 ml BID DONALD Administration Chlorhexidine Gluconate 1 each 01/30/24 10:00 01/30/24 08:17 Chlorhexidine Gluc 2% Cloth 1 Each Towelette TOPICAL 1 each DAILY DONALD Administration Sodium Chloride 500 mls @ 15 mls/hr 01/28/24 16:59 IV PRN PRN Blood Transfusion Sodium Chloride 250 mls @ 15 mls/hr 01/28/24 16:59 IV .[id number] PRN Additional IVPB Infusion Sodium Chloride 250 mls @ 15 mls/hr 01/28/24 16:59 IV .[id number] PRN Saline Flush Fentanyl 100 mls @ 5 mls/hr 01/29/24 14:05 01/31/24 08:00 CONT INF 200 mcg/hr UD DONALD 20 mls/hr Titration Protocol 50 MCG/HR Pantoprazole Sodium 40 mg/ 110 mls @ 330 mls/hr 01/29/24 22:00 01/30/24 20:54 Sodium Chloride IV Infused Q12 DONALD Infusion Ampicillin Sodium/Sulbactam 112 mls @ 150 mls/hr 01/29/24 18:00 01/31/24 06:03 Sodium 3 gm/ Sodium Chloride IV Infused Q6 DONALD Infusion Dexmedetomidine HCl 1,000 mcg/ 250 mls @ 7.375 mls/hr 01/30/24 08:25 01/31/24 08:00 Sodium Chloride CONT INF 1.5 mcg/kg/hr .[id number] DONALD 22.1 mls/hr Titration Protocol 0.5 MCG/KG/HR Morphine Sulfate 2 mg 01/28/24 17:12 01/29/24 09:10 Morphine 2 Mg/Ml Syringe IV 2 mg Q3H PRN PRN Administration Pain Score 6-10 Ondansetron HCl 4 mg 01/28/24 17:12 Ondansetron 4 Mg/2 Ml Vial IV Q8H PRN PRN NAUSEA/VOMITING Prochlorperazine Edisylate 5 mg 01/28/24 17:12 Prochlorperazine 10 Mg/2 Ml Vial IV Q4H PRN PRN Breakthrough nausea/vomiting Medical Records Data Medical Nutrition Assessment Dietitian: Malnutrition Criteria Met Start: 01/29/24 14:22 Freq: Status: Active Protocol: Document 01/29/24 14:22 AG (Rec: 01/29/24 14:22 [id number]) Nutrition Malnutrition Evidence of Malnutrition Exists Yes Malnutrition (severe): Chronic Evidenced By Suboptimal Energy Intake ( Severe),Weight Loss (Severe) Clinical Problem Chronic Disease or Condition Related Malnutrition Etiology severe, chronic malnutrition related to decreased PO intake d/t GI dysfunction Signs/Symptoms as evidenced by unintentional 8% wt loss, estimated PO intake meeting <75% of estiamted energy needs x 3 months Status Active Problem Recommendation Dietitian Recommendations/Changes recommend advance diet as tolerated to transitional; ensure w/ medpass when PO diet is advanced. Lab / Micro Data 01/31/24 03:20 01/31/24 03:20 Labs: Laboratory Results - last 24 hr 01/28/24 13:36: Crossmatch See Detail 01/30/24 17:30: Hgb 7.8 L, Hct 24.2 L 01/31/24 03:20: WBC 8.1, RBC 2.90 L, Hgb 7.8 L, Hct 24.0 L, MCV 82.8, MCH 26.9 L , MCHC 32.5, RDW Std Deviation 45.1 H, RDW Coeff of Michael 14.9 H, Plt Count 166, MPV 10.9, Immature Gran % (Auto) 0.400, Neut % (Auto) 84.6 H, Lymph % (Auto) 5.4 L, [place] % (Auto) 7.0, Eos % (Auto) 2.0, Baso % (Auto) 0.6, Absolute Neuts (auto) 6.8, Absolute Lymphs (auto) 0.44 L, Nucleated RBC % 0, Sodium 136, Potassium 3.5, Chloride 106, Carbon Dioxide 24.0, Anion Gap 6, BUN 8, Creatinine 0.52 L, Estim Creat Clear Calc 110.83, Est GFR (MDRD) Af Amer 205, Est GFR (MDRD) Non-Af 169, BUN/Creatinine Ratio 15.3, Glucose 94, Calcium 7.3 L Micro: Microbiology 01/29/24 14:15 Sputum, Induced/Lukens Gram Stain - Final Assessment and Plan . Assessment and plan: Subjective: Had another vomiting episode yesterday with dark coffee ground output, vomited around ETT as well Physical Exam: Gen - NAD, intubated HEENT - MMM. ETT in place Resp - Diminished BS. Mechanically ventilated CV - RRR. No m/g/r Abd - Soft, NT, ND Ext - No c/c/e. Skin - No rashes? Neuro - Sedated, intubated I have reviewed the pertinent vital sign, laboratory, and imaging data. ASSESSMENT: # Acute hypoxic respiratory failure # Aspiration PNA # Acute GI bleed # Gastric outlet obstruction - 2/2 gastric tumor PLAN: -Cont VC vent 450/14/5/25%. Follow ABG/CXR -Underwent repeat EGD today showing significant obstruction from mass, biopsied. Given inability to intervene further on this here or perform any stenting, GI/surgeon had recommended transfer to [facility]. Pt accepted at another facility and will likely be transferring this evening -Follow CBC, transfuse to keep Hgb > 7 -Empiric unasyn, f/u Cx -IV PPI FEN/GI: NPO Proph DVT/GI: SCDs, PPI Awaiting transfer to [facility] this evening as above Critical Care Time: 50 mins The entirety of this encounter was completed via telemedicine
[2024-01-31 10:02] LABS: Base Excess -5 mmol/L (-2 to +2); Bicarbonate 20.4 mmol/L (22-26); Blood Gas Specimen Type ART; Mode AC; O2 Delivery Device Adult Vent; PEEP 5; PO2 70 mmHG (75-100); RR 14; SITE L Radial; SO2 94 % (95-99); Total Carbon Dioxide 22 mmol/L; pH 7.37 (7.35-7.45)
[2024-01-31] MEDS: CHLORHEXIDINE GLUC 2% CLOTH 1 EACH TOWELETTE TOPICAL (10:32)
[2024-01-31] MEDS: Pantoprazole Sodium 40 MG in 0.9% Normal Saline (100mL MB+) 100 ML 330 MG IV ×2 (10:32→19:46)
[2024-01-31] MEDS: Chlorhexidine 15 ML PO ×2 (10:32→19:47)
--- NOTE | 2024-01-31 10:50 | RAD_ITS ---
STUDY: X-RAY CHEST REASON FOR EXAM: Male, 63 years old. reps failure, intubated TECHNIQUE: Single AP portable view of the chest. COMPARISON: Comparison is made with prior examination dated January 29, 2024. FINDINGS: An endotracheal tube is in situ. The tip is at 2.6 cm proximal to the brian. An orogastric tube is seen with the tip in the body of the stomach. EKG electrodes are seen. Left basilar infiltrate with blunting of the left costophrenic angle. Normal size heart. Normal mediastinum and ilsa. Normal visualized pulmonary arteries. Normal visualized aortic arch and descending thoracic aorta. Normal visualized thoracic spine. Normal visualized ribs, clavicles, and shoulders. There is no demonstrated abnormality of the visualized soft tissue structures of the upper abdomen. RAD/Chest 1 View (Portable) IMPRESSION: The tip of the endotracheal tube is at 2.6 cm proximal to the brian. The tip of the orogastric tube is in the body of the stomach. Left lower lobe infiltrate with blunting of the left costophrenic angle. Electronically Signed: Bairon Combs MD at 11:17 EDT ,
--- NOTE | 2024-01-31 12:08 | CASEMGMT ---
Per nursing and physician patient is alert and oriented despite sedating medications. Patient answers orientation questions appropriately per nursing. SW spoke with Finance Lecturer, Saira and it was felt patient could give consent as long as he is able to answer orientation questions. SW will attempt when available to talk with patient about Healthcare Power of Life Insurance Specialist. Aylin Early SEWING DEPARTMENT SUPERVISOR VISHNU
--- NOTE | 2024-01-31 12:30 | IMM_PTH ---
PATIENT: KAILA MARQUEZ LOC: ICU U#:[id number] AGE/SX: 63/M ROOM: ICU05 RE01/28/[address]: Dr. Sean Mooney DO : 1960 BED: 1 DIS: 01/31/2024 SPEC #: [id number] RECD: 02/03/24 08:37 STATUS: SOUT REQ #: [id number] KINGS: 01/31/24 12:[address]: Yusef Myers DEPT: IMMUNOHISTOCHEMISTRY RECD BY: Jorge Crooks ENTERED: 02/03/24 08:38 SP TYPE: IMMUNO OTHR DR: MD Dr. Kj Mobley MD Dr. Autumn L White, MD Dr. Derek Brown, DO Dr. Eric Jopperi, DO Dr. Edward Matheis, MD Dr. Gautam Baskaran, MD Dr. Yordanos Habtegebriel, MD Dr. Hemant Dand, MD Dr. Kimber Foust, MD Dr. Lamia Aljundi, MD Dr. Pritam Ghosh, MD Dr. Pavan Irukulla, MD Dr. Saad Farooqi, MD Dr. Vikram Anand, MD Dr. William Haden, MD No Primary Care Phys Tissues: Stomach, NOS Procedures: H Pylori (initial) MSH2 (add) MLH-1 (add) MSH6 (add) Anti-PMS2 (add) CK20 (add) CK7 (add) CK8 (add) HER2 IAN (add) KI-67 (add) P53 (add) Pankeratin (add) Comments: @ Ordering doctor for H.PYLORI edited from to @ patric PANG at 02/03/24 0838 @ Submitting doctor edited from to @ by BHUMI at 02/03/24 0838 PHYSICIAN & INSTITUTION [place] [id number] SPECIMEN INFORMATION: Tissue Source: Gastric mass biopsy Clinical Info: GI bleed Specimen Number: [id number] CPT code: [id number] METHODOLOGY: Deparaffinized sections of prefer/formalin-fixed tissue or PAP/DQ stained slides are incubated with monoclonal/polyclonal antibodies/oligonucleotide probes. Localization is made via biotin free immunoperoxidase method. Appropriate controls are performed and reacted as expected. Results on target cell population are indicated in the following table: RESULTS: ANTIBODY / CLONE RESULT H Pylori (polyclonal) negative AE1-3 (AE1/AE3/PCK26) positive CK7 (OV-TL12/30) positive, focal CK8 (65crjhB15) positive CK20 (KS20.8) positive, focal Her-2neu (CB11) negative (0) MLH-1 (M1) positive MSH2 (25D12) positive MSH6 (44) positive PMS2 (XLX5331) positive Ki-67 (30-9) positive, high P53 (DO-7) negative, (null pattern) These tests were developed and their performance characteristics determined by [facility]. They may not have been cleared or approved by the U.S. Food and Drug Administration. The FDA has determined that such clearance or approval is not necessary. The above immunohistochemical/dualISH markers are ordered and reviewed by the Pathologist. INTERPRETATION: Gastric mass, biopsy: Poorly differentiated invasive adenocarcinoma. Negative for Helicobacter pylori organisms. Result of Microsatellite Instability Study: Negative (no loss of mismatch protein; no microsatellite instability detected). ABNER/ 02/05/2024
[2024-01-31] MEDS: Midazolam 2 MG/2 ML Syringe IV (13:49)
--- NOTE | 2024-01-31 14:10 | NURSING ---
Dr. Myers, this RN and endo staff at bedside for EGD. Patient on ventilator, VSS. Versed 2mg IV given at 1349, procedure started at 1350. Scope completed at 1358 with no complications. See procedure sedation charting.
--- NOTE | 2024-01-31 14:57 | CASEMGMT ---
Physician indicated patient needs to be transferred to a tertiary care hospital. Per patient's insurance website patient can go to [facility], [facility], and [facility]. Aylin MARES
--- NOTE | 2024-01-31 15:48 | DS.PCM_ITS ---
Providers Date of Admission: 01/28/24 Primary Care Physician: Erna Primary Care Phys Consultations 01/29/24 14:44 Consult: Gastroenterology Routine Consulting Provider: Yaron Gastroenterology Reason for Consult: GI bleed EMERGENT Consult: No Notified: Yes Date Notified: 01/29/24 Time Notified: 14:02 Method of Notification: Verbal Consult: Punch Hand / Pulmonary Medicine Routine Consulting Provider: Intensivists/Pulmonary Med Reason for Consult: vent mgmt EMERGENT Consult: No Notified: Yes Date Notified: 01/29/24 Time Notified: 14:04 Method of Notification: Verbal Reason For Visit: GI BLEED, ABLA Diagnosis Discharge Diagnosis (1) Acute upper GI bleed: Status: Acute Code(s): K92.2 - Gastrointestinal hemorrhage, unspecified Plan Acute GI Bleed * due to PUD * IV PPI * EGD showed erosive esophagitis, spurting gastric ulcers with visible vessel that was injected. 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 Aspiration pneumonia * on amp/SB * BDs GOO * dilated * Biopsied Hypokalemia: Admission K+ 3.1, magnesium requested, supplementation given, repeat level in AM. DVT prophylaxis: SCDs. Medications at Discharge Home Medications esomeprazole magnesium 20 mg capsule,delayed release (Nexium 24HR) 20 mg PO PRANEETH Y 01/28/24 Hospital Course Operations None Procedures EGD and Intubation Summary of Care Provided Minutes Spent on Discharge: 60 Hospital Course: Patient presented with epigastric pain, nausea vomiting black stools. Reported that the symptoms have been going on for about 2 to 3 months prior to this. Patient was taken to endoscopy on the and NG tube was attempted and patient had profound coffee-ground emesis some which was aspirated. Patient was intubated and then EGD was performed. Patient had a mass around the pylorus as well as ulcerations. The ulcerations were injected and treated with heater probe. Patient was subsequently transferred to the intensive care unit and was started on Unasyn for the aspiration. Patient was doing fairly well from a respiratory standpoint. But remained intubated due to the concern for the with additional was going to be done from a GI perspective. Patient continues to still have events with aspiration despite an OG tube with suction. Patient underwent repeat EGD that showed mass from the antrum the stomach to the pylorus and duodenum causing a near complete obstruction of the stomach. Tractor Mechanic Apprentice was recommending transfer for evaluation for either pyloric stents or some sort of resection. I did confer with our general surgery team here that that would not be feasible at this institution. Patient after his second EGD was sedated as he apparently received some Versed. Due to the emergent basis of that we did discuss the case with an mud temperer with his son. Explained the case that he has's gastric outlet obstruction that we did not have the capability of definitive procedures to address at and recommended transfer to a tertiary facility where they would be able to assess and manage his situation. He agreed to transfer.. Unfortunately, the patient's spouse [place] and we do not have ready way of directly contacting her. And with the patient being sedated we had the approval from the patient's son. Discussed with Dr. Garnica at [facility]. Also discussed with the SICU attending as well. They agreed for the transfer. Patient will be transferred there in critical condition as he is on the ventilator. Medical Records Data Medical Nutrition Assessment Dietitian: Malnutrition Criteria Met Start: 01/29/24 14:22 Freq: Status: Active Protocol: Document 01/29/24 14:22 (Rec: 01/29/24 14:22 AG [id number]) Nutrition Malnutrition Evidence of Malnutrition Exists Yes Malnutrition (severe): Chronic Evidenced By Suboptimal Energy Intake ( Severe),Weight Loss (Severe) Clinical Problem Chronic Disease or Condition Related Malnutrition Etiology severe, chronic malnutrition related to decreased PO intake d/t GI dysfunction Signs/Symptoms as evidenced by unintentional 8% wt loss, estimated PO intake meeting <75% of estiamted energy needs x 3 months Status Active Problem Recommendation Dietitian Recommendations/Changes recommend advance diet as tolerated to transitional; ensure w/ medpass when PO diet is advanced. Weight / BMI Weight Weight: 61.5 kg Body Mass Index (BMI) 24.7 ABG / Lab / Microbiology Data 01/31/24 03:20 01/31/24 03:20 Laboratory: Laboratory Results - last 24 hr 01/28/24 13:36: Crossmatch See Detail 01/30/24 17:30: Hgb 7.8 L, Hct 24.2 L 01/31/24 03:20: WBC 8.1, RBC 2.90 L, Hgb 7.8 L, Hct 24.0 L, MCV 82.8, MCH 26.9 L , MCHC 32.5, RDW Std Deviation 45.1 H, RDW Coeff of Michael 14.9 H, Plt Count 166, MPV 10.9, Immature Gran % (Auto) 0.400, Neut % (Auto) 84.6 H, Lymph % (Auto) 5.4 L, [place] % (Auto) 7.0, Eos % (Auto) 2.0, Baso % (Auto) 0.6, Absolute Neuts (auto) 6.8, Absolute Lymphs (auto) 0.44 L, Nucleated RBC % 0, Sodium 136, Potassium 3.5, Chloride 106, Carbon Dioxide 24.0, Anion Gap 6, BUN 8, Creatinine 0.52 L, Estim Creat Clear Calc 110.83, Est GFR (MDRD) Af Amer 205, Est GFR (MDRD) Non-Af 169, BUN/Creatinine Ratio 15.3, Glucose 94, Calcium 7.3 L Microbiology: Microbiology 01/29/24 14:15 Sputum, Induced/Lukens Gram Stain - Final 01/29/24 14:15 Sputum, Induced/Lukens Respiratory Culture - Preliminary Presumptive C albicans ABG: ABG 01/31/24 09:58 Specimen Type ART Sample Site L Radial pH 7.37 Bicarbonate Actual 20.4 L Total CO2 22 Base Excess -5 L O2 Saturation 94 L O2 % 25.0 ABG pCO2 35.0 ABG pO2 70 L Respiration Rate 14 O2 Delivery Device Adult Vent Vent Mode AC Tidal Volume 450.0 POC PEEP 5 Radiography Diagnostic Testing: Radiology Impression Chest X-Ray 01/31/24 10:50 IMPRESSION: The tip of the endotracheal tube is at 2.6 cm proximal to the brian. The tip of the orogastric tube is in the body of the stomach. Left lower lobe infiltrate with blunting of the left costophrenic angle. Electronically Signed: Bairon Combs MD at 11:17 EDT , Meaningful Use Info Meaningful Use Meaningful Use Diagnoses (Choose all that apply): None applicable Ischemic Stroke Statin Dosing Therapy Reference: STATIN DOSE THERAPY REFERENCE: * Patients > 75 years receive moderate or high dose statin therapy. * Patients 75 years or YOUNGER should receive HIGH intensity statin dose unless contraindicated. You will be required to document reason for non-treatment if statin daily dose does not meet guidelines. HIGH DOSE STATIN THERAPY DAILY Atorvastatin > than or = to 40 mg Rosuvastatin > than or = to 20 mg Amlodipine + Atorvastatin > than or = to 2.5/40 mg Ezetimibe + Simvastatin 10/80 mg Simvastatin 80mg Discharge Plan Admission Admit Date/Time: 01/28/24 15:02 Primary Reason for Your Visit: GI bleed. Gastric outlet obstruction. Attending Provider: Sean Mooney Primary Care Provider: Care Physician,Erna Primary Consulting Providers: Chelly Sommer; Earle Ndiaye; Kj Tate; Juan Ramon Flood; Pasquale Bedolla; Cy Elizabeth; Marianne Manuel; Dominick Ramirez; Maritza Leong; Kelsey Best; Alejo Reid; Olvin Valles; Sanjay Padilla; Aleksandr Rocha; Damian Salazar Discharge Orders/Prescriptions Prescriptions: No Action esomeprazole magnesium [Nexium 24HR] 20 mg capsule,delayed release(DR/EC) 20 mg PO DAILY Referrals / Follow Up: Care Physician,No Primary [Primary Care Provider] - Disposition Disposition (needs filled in before D/C Order can be placed): Acute Care Hospital Charges/Coding Visit Charges Inpatient E&M: 55169 Disch Hosp >30min
--- NOTE | 2024-01-31 15:57 | CASEMGMT ---
Patient is not able to give consent for transfer due to anesthesia. Per physician this is an emergent transfer. Physician spoke with patient's son who was at bedside and son is agreeable to transfer. Aylin MARES
--- NOTE | 2024-01-31 16:14 | NS ---
Order to initiate TPN this date. Discussed w/ Dr. Mooney, pt pending transfer to tertiary hospital. Will start TPN 02/01/24 if pt does not transfer per Dr. Mooney. RN Ruth Ann and pharmacy updated w/ plan of care. Luis Lam MS RDN LD
--- NOTE | 2024-01-31 17:15 | OP.CCLET_ITS ---
01/31/2024 No Primary Care Physician Re : Upper GI endoscopy procedure for Elliott Norton Dear Care Physician This procedure was performed on Wednesday, January 31, 2024. My impressions and recommendations are as follows: Impressions : - LA Grade B erosive esophagitis with no bleeding. 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 Biopsied. - Chronic duodenitis. Recommendations : - Return patient to ICU for ongoing care. - Continue present medications. My findings are described in the full procedure note, which is enclosed. If I can be of further assistance, please feel free to contact me at . Sincerely, Yusef Myers, 01/31/2024 5:15:03 PM This report has been signed electronically.
--- NOTE | 2024-01-31 17:15 | OP.EGD_ITS ---
Patient Name: Elliott Norton Procedure Date: 01/31/2024 1:40 PM Date of : 1960 Age: 63 Procedure: Upper GI endoscopy Indications: Coffee-ground emesis Providers: Yusef Myers DO Medicines: Midazolam 2 mg IV, Fentanyl 100 micrograms IV Patient Profile: This is a 63 year old male. Refer to note in patient chart for documentation of history and physical. Patient has symptoms. Complications: No immediate complications. Procedure: Pre-Anesthesia Assessment: - Prior to the procedure, a History and Physical was performed, and patient medications and allergies were reviewed. The patient is competent. The risks and benefits of the procedure and the sedation options and risks were discussed with the patient. All questions were answered and informed consent was obtained. Patient identification and proposed procedure were verified by the physician in the pre-procedure area. Mental Status Examination: alert and oriented. Airway Examination: normal oropharyngeal airway and neck mobility. Respiratory Examination: clear to auscultation. CV Examination: normal. Prophylactic Antibiotics: The patient does not require prophylactic antibiotics. Prior Anticoagulants: The patient has taken no anticoagulant or antiplatelet agents. ASA Grade Assessment: II - A patient with mild systemic disease. After reviewing the risks and benefits, the patient was deemed in satisfactory condition to undergo the procedure. The anesthesia plan was to use moderate sedation / analgesia (conscious sedation). Immediately prior to administration of medications, the patient was re-assessed for adequacy to receive sedatives. The heart rate, respiratory rate, oxygen saturations, blood pressure, adequacy of pulmonary ventilation, and response to care were monitored throughout the procedure. The physical status of the patient was re-assessed after the procedure. After obtaining informed consent, the endoscope was passed under direct vision. Throughout the procedure, the patient's blood pressure, pulse, and oxygen saturations were monitored continuously. The Endoscope was introduced through the mouth, and advanced to the second part of duodenum. The upper GI endoscopy was accomplished without difficulty. The patient tolerated the procedure well. Scope In: 1:50:34 PM Scope Out: 1:58:09 PM Total Procedure Duration Time 0 hours 7 minutes 35 seconds Findings: LA Grade B (one or more mucosal breaks greater than 5 mm, not extending between the tops of two mucosal folds) esophagitis with no bleeding was found 37 to 40 cm from the incisors. A large, ulcerated, non-circumferential mass with no bleeding and no stigmata of recent bleeding was found in the gastric antrum. Biopsies were taken with a cold forceps for histology. Verification of patient identification for the specimen was done. Estimated blood loss was minimal. Localized moderate inflammation characterized by friability, granularity and deep ulcerations was found in the duodenal bulb. Impression: - LA Grade B erosive esophagitis with no bleeding. 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 Biopsied. - Chronic duodenitis. Recommendation: - Return patient to ICU for ongoing care. - Continue present medications. Procedure Code(s): --- Professional --- 34489, Esophagogastroduodenoscopy, flexible, transoral; with biopsy, single or multiple CPT copyright 2021 [employer]. All rights reserved. The codes documented in this report are preliminary and upon commercial front load driver review may be revised to meet current compliance requirements. Yusef Myers DO 01/31/2024 5:15:03 PM This report has been signed electronically. Number of Addenda: 0 Note Initiated On: 01/31/2024 1:40 PM
--- NOTE | 2024-01-31 17:49 | EX.PCM.PN.GI ---
Subjective Subjective Patient underwent repeat upper endoscopy today. He was discovered to have no signs of current bleeding at this time. However very large gastric mass was seen that was not previously seen on his upper endoscopy due to the amount of food in his stomach. He still has a lot of food in the stomach along with a lot of fluid. Objective Data Objective Data Vital Signs: Vital Signs Temp Pulse Resp BP Pulse Ox O2 Del Method FiO2 98.9 F 100 20 H 79/55 L 94 Mechanical Ventilator 01/31/24 16:00 01/31/24 17:00 01/31/24 17:00 01/31/24 17:00 01/31/24 17:00 01/31/24 17:00 01/31/24 17:00 Oxygen Delivery Method [1 ( Mechanical Ventilator Initial Baseline)] Oxygen Delivery Method Mechanical Ventilator Weight: 135 lb 9.349 oz Body Mass Index (BMI) 24.7 Intake & Output: Intake and Output for Last 24 Hours 01/29/24 01/30/24 01/31/24 23:59 23:59 23:59 Intake Total 4456.22 / 4514.39 2110.66 / 2130.66 1128.49 / 1128.49 Output Total 1580 / 1580 2200 / 2200 1375 / 1375 Balance 2876.22 / 2934.39 -89.34 / -69.34 -246.51 / -246.51 Medical Nutrition Assessment Dietitian: Malnutrition Criteria Met Start: 01/29/24 14:22 Freq: Status: Active Protocol: Document 01/29/24 14:22 (Rec: 01/29/24 14:22 [id number]) Nutrition Malnutrition Evidence of Malnutrition Exists Yes Malnutrition (severe): Chronic Evidenced By Suboptimal Energy Intake ( Severe),Weight Loss (Severe) Clinical Problem Chronic Disease or Condition Related Malnutrition Etiology severe, chronic malnutrition related to decreased PO intake d/t GI dysfunction Signs/Symptoms as evidenced by unintentional 8% wt loss, estimated PO intake meeting <75% of estiamted energy needs x 3 months Status Active Problem Recommendation Dietitian Recommendations/Changes recommend advance diet as tolerated to transitional; ensure w/ medpass when PO diet is advanced. Lab / Micro Data 01/31/24 03:20 01/31/24 03:20 Labs: Laboratory Results - last 24 hr 01/28/24 13:36: Crossmatch See Detail 01/31/24 03:20: WBC 8.1, RBC 2.90 L, Hgb 7.8 L, Hct 24.0 L, MCV 82.8, MCH 26.9 L, MCHC 32.5, RDW Std Deviation 45.1 H, RDW Coeff of Michael 14.9 H, Plt Count 166, MPV 10.9, Immature Gran % (Auto) 0.400, Neut % (Auto) 84.6 H, Lymph % (Auto) 5.4 L, [place] % (Auto) 7.0, Eos % (Auto) 2.0, Baso % (Auto) 0.6, Absolute Neuts (auto) 6.8, Absolute Lymphs (auto) 0.44 L, Nucleated RBC % 0, Sodium 136, Potassium 3.5, Chloride 106, Carbon Dioxide 24.0, Anion Gap 6, BUN 8, Creatinine 0.52 L, Estim Creat Clear Calc 110.83, Est GFR (MDRD) Af Amer 205, Est GFR (MDRD) Non-Af 169, BUN/Creatinine Ratio 15.3, Glucose 94, Calcium 7.3 L Micro: Microbiology 01/29/24 14:15 Sputum, Induced/Lukens Gram Stain - Final 01/29/24 14:15 Sputum, Induced/Lukens Respiratory Culture - Preliminary Presumptive C albicans ABG Data ABG results: ABG 01/31/24 09:58 Specimen Type ART Sample Site L Radial pH 7.37 Bicarbonate Actual 20.4 L Total CO2 22 Base Excess -5 L O2 Saturation 94 L O2 % 25.0 ABG pCO2 35.0 ABG pO2 70 L Respiration Rate 14 O2 Delivery Device Adult Vent Vent Mode AC Tidal Volume 450.0 POC PEEP 5 Radiography Diagnostic Testing: Radiology Impression Chest X-Ray 01/31/24 10:50 IMPRESSION: The tip of the endotracheal tube is at 2.6 cm proximal to the brian. The tip of the orogastric tube is in the body of the stomach. Left lower lobe infiltrate with blunting of the left costophrenic angle. Electronically Signed: Bairon Combs MD at 11:17 EDT , Physical Exam Const Constitutional Narrative: intubated, sedated. Resp normal respiratory effort, no retractions, no use of accessory muscles and clear to auscultation bilaterally Cardio regular rate, regular rhythm, S1 normal heart sound and S2 normal heart sound GI normal to inspection, nondistended, normoactive bowel sounds and soft to palpation Neuro Sensorium / Orientation: awake and alert Assessment & Plan Assessment/Plan (1) Acute upper GI bleed: (2) Acute blood loss anemia: (3) Abnormal weight loss: PLAN: Plan 63-year-old with gastric gland obstruction possibly secondary two online malignancy. Biopsies were taken. He has an OG tube. Continue OG tube to intermittent. Wait biopsies hopefully be able to extubate tomorrow. Follow H&H. The plan is to put a duodenal stent in on Saturday. He will likely need TPN or another source of nutrition. Charges/Coding Visit Charges Inpatient E&M: 91213 Subs Hosp L3
--- NOTE | 2024-01-31 21:59 | CPS ---
Patient taken off [facility] ventilator and placed on transportation ventilator at this time.
== END 2024-01-31 21:35 | disposition short-term general hospital (02) | DRG 374 ==
LOC: ED 13:27 → MS3 16:02 → ICU 01-29 13:56
PROVIDERS: Family Medicine; Internal Medicine Gastroenterology; Admitting Provider Family Medicine; Emergency Provider Emergency Medicine
PROC: 0DJ08ZZ Inspection of Upper Intestinal Tract, Via Natural or Artificial Opening Endoscopic (ICD-10-PCS; CPT 43235; principal; 2024-01-29 12:10)
DX: C16.3 Malignant neoplasm of pyloric antrum (principal); K25.4 Chronic or unspecified gastric ulcer with hemorrhage; J96.01 Acute respiratory failure with hypoxia; J69.0 Pneumonitis due to inhalation of food and vomit; E43 Unspecified severe protein-calorie malnutrition; K26.4 Chronic or unspecified duodenal ulcer with hemorrhage; K29.81 Duodenitis with bleeding; D62 Acute posthemorrhagic anemia; K31.1 Adult hypertrophic pyloric stenosis; K22.10 Ulcer of esophagus without bleeding; E87.6 Hypokalemia; R63.4 Abnormal weight loss; Z68.24 Body mass index [BMI] 24.0-24.9, adult
CPT/HCPCS: 31720; 36415; 36600; 71045; 71260; 74018; 74177; 80048; 80053; 80076; 81002; 82803; 83690; 83735; 85014; 85018; 85025; 85610; 85730; 86850; 86900; 86901; 86920; 87070; 87077; 87205; 88305; 88341; 88342; 93005; 94002; 94003; 94640; 94660; 97802; 97803; 99252; 99284; J7030; J7040; J7050; P9016; Q9967; A4216; G0463; J0295; J2405; J3490

== ENCOUNTER 2024-05-25 16:16 | Outpatient (RCR) | payer OTHER, SELFPAY ==
--- NOTE | 2024-06-04 16:25 | NS ---
06/04/24: LISA called Elliott using phone hot box spotter Riddhi (#[id number]). Pt continues to eat 2 meals a day and sometimes snacks. Relayed to pt that we will try to see if insurance will cover cost of Ensure Plus supplements. Encouraged pt to purchase Ensure from the store. Recommend 3 Ensure supplements via PO daily to supplement diet. Pt reports mild abdominal pain in the morning but denies having N/V/D/C. Pt is unsure of his weight and reports someone is going to bring a scale to his house. RD asked pt how long he is hooked up to IV nutrition and pt states 16hour a day. Per TPN order form [facility] pharmacy pt is receiving 1600mL/day with 1 hour taper up and 1 hour taper down. This provides ~1302kcal daily. Spoke with Dr. Dumont about contacting Dr. Sheridan Zuniga from [facility]. Dr. Zuniga ([phone]) has been writing TPN order for patient. LISA spoke with Dr. Zuniga staff and they asked that Dr. Dumont call Dr. Zuniga to discuss discontinuing TPN. RD left message at [phone] Zuniga to call Dr. Dumont's direct office line. Vero Sagastume RDN, LD
== END 2024-06-13 23:59 ==
LOC: NS 16:16
PROVIDERS: Visit Provider Internal Medicine Hematology & Oncology
DX: Z71.3 Dietary counseling and surveillance (principal); C16.9 Malignant neoplasm of stomach, unspecified; C77.9 Secondary and unspecified malignant neoplasm of lymph node, unspecified; R63.4 Abnormal weight loss
CPT/HCPCS: 97802

== ENCOUNTER → 2024-06-16 | Outpatient (CLI) | payer OTHER, SELFPAY ==
--- NOTE | 2024-06-16 08:25 | CT_ITS ---
INDICATION: RESTAGING STOMACH CANCER S/P RT EXAMINATION: CT Chest Abdomen And Pelvis W/ Contrast Injection TECHNIQUE: Images were obtained of the chest, abdomen and pelvis following IV contrast. A radiation dose optimization technique was used for this scan. IV Contrast dosage and agent: Oral and amp; IV Readi-CAT and amp; 100mL Isovue-300 COMPARISON: None. FINDINGS: Lungs: Unremarkable Mediastinum: The cardiomediastinal silhouette is not enlarged. No mediastinal, hilar or axillary adenopathy. The thoracic aorta is unremarkable. No obvious filling defect seen within the visualized pulmonary arteries. Pleura: Unremarkable Liver: Unremarkable Gallbladder: Unremarkable Spleen: Unremarkable Pancreas: Unremarkable Adrenal Glands: Unremarkable Kidneys: Unremarkable Vasculature: Unremarkable GI Tract: Unremarkable Lymphadenopathy: None Peritoneum: No ascites. Bladder: Unremarkable Reproductive organs: Unremarkable Bones/Soft tissues: No suspicious osseous or soft tissue lesions CT/CT Chest, Abd, Pel w/Contrast IMPRESSION: No evidence of metastatic disease in the chest, abdomen or pelvis. Electronically Signed: Arthur Walden MD at 0:13 EDT ,
[2024-06-16 08:49] LABS: CREATININE FINGERSTICK < 1.0 mg/dL (0.70-1.30); EGFR FINGERSTICK > 60.0000 mL/min (>60)
== END | disposition home or self-care (01) ==
LOC: CT 08:18
PROVIDERS: Referring Provider Internal Medicine Hematology & Oncology; Visit Provider Internal Medicine Hematology & Oncology
DX: Z01.812 Encounter for preprocedural laboratory examination (principal); C77.9 Secondary and unspecified malignant neoplasm of lymph node, unspecified; C16.9 Malignant neoplasm of stomach, unspecified
CPT/HCPCS: 71260; 74177; Q9967

== ENCOUNTER 2024-07-21 05:54 | Day surgery (SDC) | payer OTHER, SELFPAY ==
[2024-07-21] VITALS (8 sets, daily range): BP systolic 99–131; BP diastolic 62–70; PULSE 51–76; RESP 16–18; TEMP 36.4–36.9; O2SAT 97–99
--- NOTE | 2024-07-21 06:00 | EKG12_ITS ---
Test Reason : preop Blood Pressure : / mmHG Vent. Rate : 049 BPM Atrial Rate : 049 BPM P-R Int : 190 ms QRS Dur : 100 ms QT Int : 448 ms P-R-T Axes : 041 -17 014 degrees QTc Int : 404 ms Sinus bradycardia Otherwise normal ECG No previous ECGs available Confirmed by DAVY CHIANG, GIOVANA ([id number]), order editor AILSA VANCE ([id number]) on 07/22/2024 6:23:16 AM Referred By: No Primary Care Physician Confirmed By:GIOVANA BHATTI MD
--- NOTE | 2024-07-21 06:42 | PCM.HP.BLA ---
History and Physical Date of Admission: 07/21/24 63-year-old male, Faroese-speaking who presented in [facility] emergency department in January 2024 with abdominal pain, weight loss and black tarry stool. I was alerted to see him for an emergent consultation for an acute GI bleed. He had never had an upper endoscopy in the past. He was not taking any NSAIDs. A stat CT of the abdomen and pelvis revealed gastric distention with fluid and retained secretions in the proximal stomach along with severely narrowed antropyloric in pylorus duodenal segments. There is also elements of aspiration pneumonia. His upper endoscopy revealed malignant looking gastric tumor in the gastric antrum to the lesser curvature. 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 He was referred to oncology. He underwent a diagnostic laparoscopy after being transferred to [facility]. Prior to that procedure he was intubated due to aspiration. Doing a diagnostic laparoscopy he had a fine-needle aspiration which was positive for poorly differentiated adenocarcinoma. He was deemed not to be a surgical candidate at the time. He was placed on TPN and underwent palliative radiation. He comes back in today to set up a repeat upper endoscopy. He is in with his 2 sons today. He is not have any abdominal pain. He is tolerating a diet. He is able to maintain his weight. He is not undergone any genetic testing. He has no prior history of H. pylori. He has no prior history of any GI associated malignancy and has no family history of GI associated malignancy. He is not a heavy drinker of alcohol and does not use tobacco products. ROS Const Constitutional: Positive for weight change (Gain) and change in appetite (Improved); No fatigue, fever(s), frequent falls, headache(s) or weakness ENT ENT: No headache(s) or difficulty swallowing Cardio Cardiology: No leg pain with exertion Gastro GI: No abdominal pain, bloating, change in bowel habits, constipation, diarrhea, heartburn, difficulty swallowing, excessive flatus, Vomiting blood/hematemesis, Blood in stool, nausea/dyspepsia or vomiting Musc Musculoskeletal: No joint pain, back pain, joint swelling, muscle cramps, muscle weakness, numbness, stiffness, tingling, Arthritis, sciatica, restless legs, leg pain at night or leg pain with exertion Skin Skin: No dry skin, lesions, itchy eyes or rash Neuro Neurology: No behavioral changes, unsteady gait/balance, weakness, frequent falls, headache(s), numbness, tingling, restless legs, tremor(s), Increased tone in limbs, paralysis or seizures Psych Psychiatric: No anxiety, No behavioral changes, Positive for change in appetite (Improved), No depression, No paranoia, No Compulsive Behavior, No hyperactivity, No inattentiveness, No obsessions/compulsions, No Temper Tantrums and No suicidal ideation Endo Endocrine: Positive for weight change (Gain); No fatigue Aller/Imm Allergy/Immunologic: No itchy eyes Quentin/Lymp Hematologic/Lymphatic: No easy bleeding or easy bruising Exam Const General: cooperative and comfortable Nutritional Appearance: average body habitus and well nourished HENMT Head: normal to inspection Ears: hearing grossly normal bilaterally Nose: external nose normal Face and sinus: normal facial exam Mouth: oral mucosae normal Throat: posterior oropharynx normal Eyes General: appearance normal, both eyes and all related structures Neck Neck: normal visual inspection Chest Chest palpation & inspection: normal inspection of the chest and normal palpation of entire chest wall Resp Effort & Inspection: normal respiratory effort Auscultation: Bilateral: Clear to Auscultation Cardio Palpation: normal PMI Rate: regular rate Rhythm: regular rhythm GI Inspection: normal to inspection Auscultation: normal bowel sounds Percussion: normal to percussion Palpation: no hepatosplenomegaly Skin General: no rashes or lesions noted Neuro General: patient alert Extrem General: normal to inspection Psych Affect: normal affect Assessment and Plan Assessment and Plan (1) Anemia: Status: Chronic Qualifiers: Anemia type: iron deficiency Iron deficiency anemia type: chronic blood loss Qualified Code(s): 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 -He will undergo an upper endoscopy to evaluate his upper GI tract. He was explained alternatives, risk, benefits including not withstanding bleeding, infection, sepsis, perforation, need for charge and . He will have an ASA of 3. I have examined the patient and the H&P has been reviewed. There are no clinical changes since date of exam.
--- NOTE | 2024-07-21 07:00 | IMM_PTH ---
PATIENT: KAILA MARQUEZ LOC: EN U#:[id number] AGE/SX: 63/M ROOM: RE07/21/[address]: Dr. Yusef Myers DO : 1960 BED: DIS: 07/21/2024 SPEC #: [id number] RECD: 07/21/24 10:09 STATUS: STONEY REQ #: [id number] KINGS: 07/21/24 07:[address]: Yusef Myers DEPT: IMMUNOHISTOCHEMISTRY RECD BY: Jorge Crooks ENTERED: 07/21/24 10:09 SP TYPE: IMMUNO OT DR: Erna Primary Care Phys Tissues: Gastric mucous membrane Procedures: H Pylori (initial) PHYSICIAN & INSTITUTION [place] [id number] SPECIMEN INFORMATION: Tissue Source: Lesser curvature biopsy Clinical Info: Anemia, regional lymph node metastasis present, gastric cancer Specimen Number: [id number] CPT code: 16376 METHODOLOGY: Deparaffinized sections of prefer/formalin-fixed tissue or PAP/DQ stained slides are incubated with monoclonal/polyclonal antibodies/oligonucleotide probes. Localization is made via biotin free immunoperoxidase method. Appropriate controls are performed and reacted as expected. Results on target cell population are indicated in the following table: RESULTS: ANTIBODY / CLONE RESULT H Pylori (polyclonal) negative These tests were developed and their performance characteristics determined by [facility]. They may not have been cleared or approved by the U.S. Food and Drug Administration. The FDA has determined that such clearance or approval is not necessary. The above immunohistochemical/dualISH markers are ordered and reviewed by the Pathologist. INTERPRETATION: Samantha scott, biopsy: Negative for Helicobacter pylori organisms. 07/23/2024
--- NOTE | 2024-07-21 07:00 | EGD_PTH ---
PATIENT: KAILA MARQUEZ LOC: EN U#:[id number] AGE/SX: 63/M ROOM: RE07/21/[address]: Dr. Yusef Myers DO : 1960 BED: DIS: 07/21/2024 SPEC #: [id number] RECD: 07/21/24 09:21 STATUS: STONEY RECarmen #: [id number] KINGS: 07/21/24 07:[address]: Yusef Myers DEPT: SURGICAL PATHOLOGY RECD BY: Chelsea Huertas ENTERED: 07/21/24 10:29 SP TYPE: EGD BIOPSY KEYSHA DR: No Primary Care Phys Tissues: Stomach, NOS Procedures: Special Stain Group I Surgery Specimen Level IV Alcian Blue/PAS (control) HEADER OPERATION: EGD biopsy PRE-OP DIAGNOSIS: Anemia, regional lymph node metastasis present, gastric cancer TISSUE SUBMITTED: Lesser curvature biopsy MICROSCOPIC DIAGNOSIS Lesser curvature, biopsy: Moderately to poorly differentiated adenocarcinoma. See comment. 07/22/2024 COMMENT Extensive intestinal metaplasia (goblet cell metaplasia) is noted. Focal ulceration with fibrinopurulent exudates are also noted. Only a minimal amount of tumor is noted. Alcian blue/PAS stain with matched control is used in the evaluation of the specimen. The results of immunohistochemistry for Helicobacter pylori will be reported separately ([id number]). Please make reference to previous specimen [id number] gastric mass, biopsy with diagnosis of poorly differentiated invasive carcinoma and [id number] gastric ulcer, biopsy with diagnosis of poorly differentiated invasive adenocarcinoma. Case has been reviewed in consultation with Dr. Franco who concurs with the above diagnosis. IDC:AM MICROSCOPIC DESCRIPTION Slides are reviewed. GROSS DESCRIPTION Received in fixative is one container labeled with the patient's name and designated Lesser curvature biopsy. The specimen consists of multiple irregular fragments of light richardson soft tissue that in aggregate measure 0.7 x 0.5 x 0.1 cm. The specimen is totally submitted in one cassette. 07/21/2024 TC:0 CPT:38908,12802
--- NOTE | 2024-07-21 07:36 | PRE.ANES_ITS ---
ASA Classification* ASA Classification ASA Classification: 2 Assessment & Plan Anesthesia* Anesthesia Assessment Anesthesia Assessment: Discussed sedation and/or anesthesia options, risks, benefits, and alternatives with patient/parents/legal guardian/POA. Questions invited. The patient/parents/legal guardian/POA seems to understand and agrees to proceed with anesthesia plan. Reviewed the physical assessment, medical history, allergy history and patient home medications list prior to surgery/procedure/anesthetic and documented any changes. Performed airway and anesthesia risk assessments. Anesthesia Type Anesthesia Type: MAC (see written pre anesthesia record for full assessment) Anesthesia Focused Assessment* Temperature: 97.5 F Pulse Rate: 51 Blood Pressure: 110/67 Respiratory Rate: 18 Pulse Ox: 99 Airway Assessment Mouth opens: >3 cm Mallampati Score: II Focused Labs Anesthesia Preop lab: CBC WBC 3.5 K/mm3 (4.4-11.0) L 06/22/24 11:18 RBC 3.51 M/mm3 (4.6-6.2) L 06/22/24 11:18 Hgb 9.6 g/dL (13.0-16.5) L 06/22/24 11:18 Hct 30.4 % (40-54) L 06/22/24 11:18 Plt Count 229 K/mm3 (150-450) 06/22/24 11:18 CHEMISTRY Potassium 3.5 mmol/L (3.5-5.1) 06/22/24 11:18 Sodium 140 mmol/L (136-145) 06/22/24 11:18 Magnesium 2.1 mg/dL (1.6-2.6) 01/28/24 13:00 BUN 10 mg/dL (7-18) 06/22/24 11:18 Creatinine 0.72 mg/dL (0.70-1.30) 06/22/24 11:18 Glucose 112 mg/dL (74-106) H 06/22/24 11:18 COAG PT 14.7 SECONDS (11.7-14.9) 01/28/24 14:25 Pre-Assessment Diagnosis/Proposed Procedure Planned Operative Procedure(s): EGD Anesthesia History Anesthesia History - wheel grinder: Anesthesia History - wheel grinder Hx Hospitalization Any Problems With Anesthesia No 07/21/24 06:14 Cholinesterase deficiency No 07/21/24 06:14 You/Your Family Experience No 07/21/24 06:14 fever (hyperthermia) with Relationship Recent Exposure to Contagious No 01/28/24 20:27 Disease Does patient have nerve No 07/21/24 06:14 stimulator Patient instructed to have device shut off --Does patient have Pacemaker No 07/21/24 06:24 or ICD? When Was Last Pacemaker Check QUESTION #4 FULL TEXT: You/Your Family Experience fever (hyperthermia) with Anesthesia Last Oral Intake Last Oral intake: Last Oral Intake NPO since 16:00 07/21/24 06:24 Meds taken in AM with sips of No 07/21/24 06:24 water? Meds patient instructed to take am of surgery PONV PONV - wheel grinder: PONV - wheel grinder Female No 07/21/24 06:14 HX of Motion Sickness No 07/21/24 06:14 HX of N/V After Surgery No 07/21/24 06:14 Non-Smoker No 07/21/24 06:14 Duration of Surgery greater No 07/21/24 06:14 than 60 minutes Number of Risk Factors PONV Score Height & Weight Height & Weight: Anesthesia: Height & Weight Height 5 ft 2 in 07/16/24 12:15 Respiratory Assessment Respiratory Assessment - wheel grinder: Respiratory Tract Infection Hx - wheel grinder Hx Respiratory Tract Infection No 07/21/24 06:14 STOP Sleep Apnea STOP Sleep Apnea - wheel grinder: STOP Sleep Apnea - wheel grinder Hx Hypertension No 07/21/24 06:14 Hx Sleep Apnea No 07/21/24 06:14 CPAP BIPAP Do you snore loudly (louder No 07/21/24 06:14 than talking or can be heard Do you often feel tired/ No 07/21/24 06:14 fatigued/ sleepy during daytime? Has anyone observed you stop No 07/21/24 06:14 breathing during sleep? STOP Results Negative 07/21/24 06:14 QUESTION #5 FULL TEXT : Do you snore loudly (louder than talking or can be heard through closed doors)? Tobacco Use History Tobacco Use History - wheel grinder: Tobacco Use History - wheel grinder Tobacco Use Smoking Status Never smoker 07/21/24 06:14 Hx Tobacco Use No 07/21/24 06:14 Years Smoking Packs Smoked per Day Smoking Cessation Date was within the last 15 years Hx Smoking Cessation Date Hx Smoking Cessation Counseling Hematologic Medial History Hematologic Hx - wheel grinder: Hematologic Medical Hx - general teller Hx of Blood Transfusion Yes 07/21/24 06:14 Hx of Transfusion in last 3 Yes 07/21/24 06:14 Months Date of Last Transfusion (if 03/14/2024 07/21/24 06:14 within last 3 months) Ever experience any problems No 07/21/24 06:14 with transfusion(s)? Specify any problems Hx of Preganancy in last 3 N/A 07/21/24 06:14 Months Nurse Filling Out Transfusion JSTANTON 07/21/24 06:14 & Questions: Date: 07/21/24 07/21/24 06:14 Time: 06:20 07/21/24 06:14 Patient unable to answer at this time (ie. confused, unrespo /Reproduction History /Reproductive History - wheel grinder: /Reproductive Hx- wheel grinder Hx Now No 07/21/24 06:14 Gestational Age (in weeks): EDC: Hx Hx Para Hx Section SAB No 01/28/24 20:27 PFSH Medical History Anemia Regional lymph node metastasis present Gastric cancer GI bleed Home Medications ?Medication ?Instructions ?Recorded ?Last Taken ?Type Discontinue PICC line/TPN #1 ea 06/10/24 Unknown Rx Allergy/AdvReac Type Severity Reaction Status Date / Time No Known Allergies Allergy Verified 07/21/24 06:13 Family History Mother No problems noted. Father No problems noted. Surgical History No history of previous surgery Social History household members: family Smoking Status: Never smoker alcohol intake: never substance use type: does not use Review of Systems (Anesthesia) ROS Narrative System reviewed and no additional complaints, except as documented.
--- NOTE | 2024-07-21 07:51 | OP.EGD_ITS ---
Patient Name: Elliott Norton Procedure Date: 07/21/2024 7:26 AM Date of : 1960 Age: 63 Procedure: Upper GI endoscopy Indications: Malignant adenocarcinoma of the stomach, Follow-up of malignant adenocarcinoma of the stomach Providers: Yusef Myers DO Medicines: Monitored Anesthesia Care Patient Profile: This is a 63 year old male. Refer to note in patient chart for documentation of history and physical. Patient has symptoms of chronic dyspepsia. His most recent EGD for biopsy was within the past three months. Complications: No immediate complications. Procedure: Pre-Anesthesia Assessment: - Prior to the procedure, a History and Physical was performed, and patient medications and allergies were reviewed. The patient is competent. The risks and benefits of the procedure and the sedation options and risks were discussed with the patient. All questions were answered and informed consent was obtained. Patient identification and proposed procedure were verified by the physician in the pre-procedure area. Mental Status Examination: alert and oriented. Airway Examination: normal oropharyngeal airway and neck mobility. Respiratory Examination: clear to auscultation. CV Examination: normal. Prophylactic Antibiotics: The patient does not require prophylactic antibiotics. Prior Anticoagulants: The patient has taken no anticoagulant or antiplatelet agents except for NSAID medication. ASA Grade Assessment: II - A patient with mild systemic disease. After reviewing the risks and benefits, the patient was deemed in satisfactory condition to undergo the procedure. The anesthesia plan was to use monitored anesthesia care (MAC). Immediately prior to administration of medications, the patient was re-assessed for adequacy to receive sedatives. The heart rate, respiratory rate, oxygen saturations, blood pressure, adequacy of pulmonary ventilation, and response to care were monitored throughout the procedure. The physical status of the patient was re-assessed after the procedure. After obtaining informed consent, the endoscope was passed under direct vision. Throughout the procedure, the patient's blood pressure, pulse, and oxygen saturations were monitored continuously. The Endoscope was introduced through the mouth, and advanced to the second part of duodenum. The upper GI endoscopy was accomplished without difficulty. The patient tolerated the procedure well. Scope In: 7:40:47 AM Scope Out: 7:43:03 AM Total Procedure Duration Time 0 hours 2 minutes 16 seconds Findings: The examined esophagus was normal. A hiatal hernia was present. Suspect gastroparesis due to absence of peristalsis and retained gastric contents. A small, ulcerated, non-circumferential mass with no bleeding and stigmata of recent bleeding was found in the gastric antrum. Biopsies were taken with a cold forceps for histology. Verification of patient identification for the specimen was done. Estimated blood loss was minimal. No gross lesions were noted in the second portion of the duodenum. Impression: - Normal esophagus. - Hiatal hernia. - Gastroparesis. - Malignant gastric tumor in the gastric antrum. Biopsied. - No gross lesions in the second portion of the duodenum. Recommendation: - Discharge patient to home. - Resume previous diet. - Continue present medications. - Await pathology results. - Repeat upper endoscopy because the preparation was poor. Procedure Code(s): --- Professional --- 72672, Esophagogastroduodenoscopy, flexible, transoral; with biopsy, single or multiple CPT copyright 2021 [employer]. All rights reserved. The codes documented in this report are preliminary and upon certified medical records coder review may be revised to meet current compliance requirements. Yusef Myers DO 07/21/2024 7:50:27 AM This report has been signed electronically. Number of Addenda: 0 Note Initiated On: 07/21/2024 7:26 AM
--- NOTE | 2024-07-21 07:51 | OP.CCLET_ITS ---
07/21/2024 No Primary Care Physician Re : Upper GI endoscopy procedure for Elliott Norton Dear Care Physician This procedure was performed on Sunday, July 21, 2024. My impressions and recommendations are as follows: Impressions : - Normal esophagus. - Hiatal hernia. - Gastroparesis. - Malignant gastric tumor in the gastric antrum. Biopsied. - No gross lesions in the second portion of the duodenum. Recommendations : - Discharge patient to home. - Resume previous diet. - Continue present medications. - Await pathology results. - Repeat upper endoscopy because the preparation was poor. My findings are described in the full procedure note, which is enclosed. If I can be of further assistance, please feel free to contact me at . Sincerely, Yusef Myers, 07/21/2024 7:50:27 AM This report has been signed electronically.
--- NOTE | 2024-07-21 07:54 | PCM.POST.ANE ---
Anesthesia: Postop Eval I Current Vital Signs Temperature: 98.1 F Pulse Rate: 58 Blood Pressure: 99/62 Respiratory Rate: 16 Pulse Ox: 98 Oxygen Delivery Method: Room Air Assessment Airway patent: Yes Spontaneous unlabored respirations: Yes Mental status: Awake and Calm nausea: No Vomiting: No Anesthesia Complication: No Fluid Hydration Crystalloid volume administer (ml): 12 Total IV fluid infused: 12 Progress Note Anesthesia document: Postop Eval 1 completed: Yes
--- NOTE | 2024-07-21 08:06 | POSTOPAN2_ITS ---
Anesthesia Postop Eval I Sum Postop Eval Completion status Anesthesia document: Postop Eval 1 completed: Yes Anesthesia Postop Eval I Summary Anesthesia Postop Eval I Summary: Anesthesia Postop Eval I: Assessment Summary Airway patent Yes 07/21/24 07:55 QUALITY MANAGEMENT NURSE.[email or web address] Spontaneous unlabored Yes 07/21/24 07:55 QUALITY MANAGEMENT NURSE.LAURA respirations Mental status Awake,Calm 07/21/24 07:55 QUALITY MANAGEMENT NURSE.LAURA nausea No 07/21/24 07:55 QUALITY MANAGEMENT NURSE.LAURA Vomiting No 07/21/24 07:55 QUALITY MANAGEMENT NURSEKITA Anesthesia Postop Eval I: Fluid Summary Crystalloid volume administer 12 07/21/24 07:55 QUALITY MANAGEMENT NURSE.LAURA (ml) Colloids volume administered ( ml) Blood Product volume administered (ml) Total IV fluid infused 12 07/21/24 07:55 QUALITY MANAGEMENT NURSEKITA Anesthesia Postop Eval I: Summary Notes Anesthesia Complication No 07/21/24 07:55 MAXIME Anesthesia Complication Comment: Post-operative progress note Anesthesia: Postop Eval II Evaluation Mental status: Awake Pain Level: 0 nausea: No Vomiting: No
--- NOTE | 2024-07-21 08:06 | PCM.POSTANE2 ---
Anesthesia Postop Eval I Sum Postop Eval Completion status Anesthesia document: Postop Eval 1 completed: Yes Anesthesia Postop Eval I Summary Anesthesia Postop Eval I Summary: Anesthesia Postop Eval I: Assessment Summary Airway patent Yes 07/21/24 07:55 RUBBER ROLLER GRINDER.[email or web address] Spontaneous unlabored Yes 07/21/24 07:55 RUBBER ROLLER GRINDER.LAURA respirations Mental status Awake,Calm 07/21/24 07:55 RUBBER ROLLER GRINDER.LAURA nausea No 07/21/24 07:55 RUBBER ROLLER GRINDER.LAURA Vomiting No 07/21/24 07:55 RUBBER ROLLER GRINDERKITA Anesthesia Postop Eval I: Fluid Summary Crystalloid volume administer 12 07/21/24 07:55 RUBBER ROLLER GRINDER.LAURA (ml) Colloids volume administered ( ml) Blood Product volume administered (ml) Total IV fluid infused 12 07/21/24 07:55 RUBBER ROLLER GRINDERKITA Anesthesia Postop Eval I: Summary Notes Anesthesia Complication No 07/21/24 07:55 MAXIME Anesthesia Complication Comment: Post-operative progress note Anesthesia: Postop Eval II Evaluation Mental status: Awake Pain Level: 0 nausea: No Vomiting: No
== END 2024-07-21 08:49 | disposition home or self-care (01) ==
LOC: EN 05:56 → AC 05:57
PROVIDERS: Visit Provider Internal Medicine Gastroenterology
PROC: 0DJ08ZZ Inspection of Upper Intestinal Tract, Via Natural or Artificial Opening Endoscopic (ICD-10-PCS; CPT 43235; principal; 2024-07-21 06:55)
DX: C16.9 Malignant neoplasm of stomach, unspecified (principal); C77.9 Secondary and unspecified malignant neoplasm of lymph node, unspecified; D50.0 Iron deficiency anemia secondary to blood loss (chronic); K44.9 Diaphragmatic hernia without obstruction or gangrene; K31.84 Gastroparesis
CPT/HCPCS: 43239; 88305; 88312; 88342; 93005; A4216; J3490

== ENCOUNTER 2024-08-05 10:58 | Outpatient (RCR) | payer OTHER, SELFPAY | END 2024-08-13 23:59 | LOC: NS 10:58 | PROVIDERS: Visit Provider Internal Medicine Hematology & Oncology | DX: Z71.3 Dietary counseling and surveillance (principal); C16.9 Malignant neoplasm of stomach, unspecified; C77.9 Secondary and unspecified malignant neoplasm of lymph node, unspecified; R63.4 Abnormal weight loss | CPT/HCPCS: 97803 ==

== ENCOUNTER 2024-08-18 11:03 | Day surgery (SDC) | payer OTHER, SELFPAY ==
[2024-08-18] VITALS (9 sets, daily range): BP systolic 98–119; BP diastolic 60–68; PULSE 48–78; RESP 12–16; TEMP 36.1–36.7; O2SAT 97–100; BMI 23.2
--- NOTE | 2024-08-18 11:15 | PCM.HP.STD ---
HPI - General General Date of Admission: 08/18/24 Date of Service: 08/18/24 Chief Complaint: Need for Mediport placement HPI Narrative KAILA ANDRADE, is a 63 M who presents to have an elective Mediport placed for chemotherapy purposes [facility] Medical History Encounter for education Recurrent malignant neoplasm of stomach Anemia Regional lymph node metastasis present Gastric cancer GI bleed Home Medications ?Medication ?Instructions ?Recorded ?Last Taken ?Type Discontinue PICC line/TPN #1 ea 06/10/24 Unknown Rx lidocaine-prilocaine 2.5 %-2.5 % 1 applic topical ONCE PRN port 08/17/24 Unknown Rx topical cream access 30 days #30 grams loperamide 2 mg capsule 2 mg PO Q6H PRN diarrhea #30 caps 08/17/24 Unknown Rx ondansetron 8 mg disintegrating 8 mg PO Q8H PRN nausea and 08/17/24 Unknown Rx tablet vomiting #30 tabs prochlorperazine maleate 10 mg 10 mg PO Q6H PRN nausea and 08/17/24 Unknown Rx tablet vomiting #30 tabs Allergy/AdvReac Type Severity Reaction Status Date / Time No Known Allergies Allergy Verified 08/17/24 09:21 Family History Mother No problems noted. Father No problems noted. Surgical History No history of previous surgery Social History household members: family Smoking Status: Never smoker alcohol intake: never substance use type: does not use Physical Exam Narrative Is alert and oriented x 3. He is in no acute distress Assessment & Plan Assessment/Plan (1) Recurrent malignant neoplasm of stomach: PLAN: Plan Plan for Mediport placement today Charges/Coding Visit Charges Inpatient E&M: 65250 Init Hosp L1
--- NOTE | 2024-08-18 11:27 | PCM.PRE.AN2 ---
ASA Classification* ASA Classification ASA Classification: 3 Assessment & Plan Anesthesia* Anesthesia Assessment Anesthesia Assessment: Discussed sedation and/or anesthesia options, risks, benefits, and alternatives with patient/parents/legal guardian/POA. Questions invited. The patient/parents/legal guardian/POA seems to understand and agrees to proceed with anesthesia plan. Reviewed the physical assessment, medical history, allergy history and patient home medications list prior to surgery/procedure/anesthetic and documented any changes. Performed airway and anesthesia risk assessments. Anesthesia Type Anesthesia Type: MAC Anesthesia Focused Assessment* Airway Assessment Mouth opens: >3 cm Mallampati Score: II Focused Labs Anesthesia Preop lab: CBC WBC 3.6 K/mm3 (4.4-11.0) L 08/10/24 12:05 RBC 4.65 M/mm3 (4.6-6.2) 08/10/24 12:05 Hgb 13.3 g/dL (13.0-16.5) 08/10/24 12:05 Hct 41.2 % (40-54) 08/10/24 12:05 Plt Count 183 K/mm3 (150-450) 08/10/24 12:05 CHEMISTRY Potassium 3.7 mmol/L (3.5-5.1) 08/10/24 12:05 Sodium 140 mmol/L (136-145) 08/10/24 12:05 Magnesium 2.5 mg/dL (1.6-2.6) 08/10/24 12:05 Phosphorus 3.8 mg/dL (2.5-4.9) 08/10/24 12:05 BUN 13 mg/dL (7-18) 08/10/24 12:05 Creatinine 0.71 mg/dL (0.70-1.30) 08/10/24 12:05 Glucose 99 mg/dL (74-106) 08/10/24 12:05 COAG PT 14.7 SECONDS (11.7-14.9) 01/28/24 14:25 Pre-Assessment Diagnosis/Proposed Procedure Planned Operative Procedure(s): port placement Anesthesia History Anesthesia History - flotation tender helper: Anesthesia History - flotation tender helper Hx Hospitalization Any Problems With Anesthesia No 07/21/24 06:14 Cholinesterase deficiency No 07/21/24 06:14 You/Your Family Experience No 07/21/24 06:14 fever (hyperthermia) with Relationship Recent Exposure to Contagious No 01/28/24 20:27 Disease Does patient have nerve No 07/21/24 06:14 stimulator Patient instructed to have device shut off --Does patient have Pacemaker or ICD? When Was Last Pacemaker Check QUESTION #4 FULL TEXT: You/Your Family Experience fever (hyperthermia) with Anesthesia Last Oral Intake Last Oral intake: Last Oral Intake NPO since Meds taken in AM with sips of water? Meds patient instructed to take am of surgery PONV PONV - flotation tender helper: PONV - flotation tender helper Female HX of Motion Sickness HX of N/V After Surgery Non-Smoker Duration of Surgery greater than 60 minutes Number of Risk Factors PONV Score Height & Weight Height & Weight: Anesthesia: Height & Weight Height 5 ft 2 in 08/17/24 09:20 Respiratory Assessment Respiratory Assessment - flotation tender helper: Respiratory Tract Infection Hx - flotation tender helper Hx Respiratory Tract Infection No 07/21/24 06:14 STOP Sleep Apnea STOP Sleep Apnea - flotation tender helper: STOP Sleep Apnea - flotation tender helper Hx Hypertension No 07/21/24 06:14 Hx Sleep Apnea No 07/21/24 06:14 CPAP BIPAP Do you snore loudly (louder than talking or can be heard Do you often feel tired/ fatigued/ sleepy during daytime? Has anyone observed you stop breathing during sleep? STOP Results QUESTION #5 FULL TEXT : Do you snore loudly (louder than talking or can be heard through closed doors)? 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 Specify any problems Hx of Preganancy in last 3 Months Nurse Filling Out Transfusion & Questions: Date: Time: Patient unable to answer at this time (ie. confused, unrespo /Reproduction History /Reproductive History - flotation tender helper: /Reproductive Hx- flotation tender helper Hx Now Gestational Age (in weeks): EDC: Hx Hx Para Hx Section SAB No 01/28/24 20:27 Active Medications Active Medications: Current Medications Generic Name Dose Route Start Last Admin Trade Name Freq PRN Reason Stop Dose Admin Cefazolin Sodium 2 gm/ N/A 20 mls @ 400 mls/hr 08/18/24 11:30 IV 08/18/24 11:32 PREOP ONE [facility] Medical History Encounter for education Recurrent malignant neoplasm of stomach Anemia Regional lymph node metastasis present Gastric cancer GI bleed Home Medications ?Medication ?Instructions ?Recorded ?Last Taken ?Type Discontinue PICC line/TPN #1 ea 06/10/24 Unknown Rx lidocaine-prilocaine 2.5 %-2.5 % 1 applic topical ONCE PRN port 08/17/24 Unknown Rx topical cream access 30 days #30 grams loperamide 2 mg capsule 2 mg PO Q6H PRN diarrhea #30 caps 08/17/24 Unknown Rx ondansetron 8 mg disintegrating 8 mg PO Q8H PRN nausea and 08/17/24 Unknown Rx tablet vomiting #30 tabs prochlorperazine maleate 10 mg 10 mg PO Q6H PRN nausea and 08/17/24 Unknown Rx tablet vomiting #30 tabs Allergy/AdvReac Type Severity Reaction Status Date / Time No Known Allergies Allergy Verified 08/17/24 09:21 Family History Mother No problems noted. Father No problems noted. Surgical History No history of previous surgery Social History household members: family Smoking Status: Never smoker alcohol intake: never substance use type: does not use Review of Systems (Anesthesia) ROS Narrative System reviewed and no additional complaints, except as documented.
--- NOTE | 2024-08-18 11:42 | PCM.PRE.AN2 ---
Assessment & Plan Anesthesia* Anesthesia Assessment Anesthesia Assessment: Discussed sedation and/or anesthesia options, risks, benefits, and alternatives with patient/parents/legal guardian/POA. Questions invited. The patient/parents/legal guardian/POA seems to understand and agrees to proceed with anesthesia plan. Reviewed the physical assessment, medical history, allergy history and patient home medications list prior to surgery/procedure/anesthetic and documented any changes. Performed airway and anesthesia risk assessments. Focused Labs Anesthesia Preop lab: CBC WBC 3.6 K/mm3 (4.4-11.0) L 08/10/24 12:05 RBC 4.65 M/mm3 (4.6-6.2) 08/10/24 12:05 Hgb 13.3 g/dL (13.0-16.5) 08/10/24 12:05 Hct 41.2 % (40-54) 08/10/24 12:05 Plt Count 183 K/mm3 (150-450) 08/10/24 12:05 CHEMISTRY Potassium 3.7 mmol/L (3.5-5.1) 08/10/24 12:05 Sodium 140 mmol/L (136-145) 08/10/24 12:05 Magnesium 2.5 mg/dL (1.6-2.6) 08/10/24 12:05 Phosphorus 3.8 mg/dL (2.5-4.9) 08/10/24 12:05 BUN 13 mg/dL (7-18) 08/10/24 12:05 Creatinine 0.71 mg/dL (0.70-1.30) 08/10/24 12:05 Glucose 99 mg/dL (74-106) 08/10/24 12:05 COAG PT 14.7 SECONDS (11.7-14.9) 01/28/24 14:25 Pre-Assessment Diagnosis/Proposed Procedure Planned Operative Procedure(s): port placement Anesthesia History Anesthesia History - medical office receptionist assistant: Anesthesia History - medical office receptionist assistant Hx Hospitalization Any Problems With Anesthesia No 07/21/24 06:14 Cholinesterase deficiency No 07/21/24 06:14 You/Your Family Experience No 07/21/24 06:14 fever (hyperthermia) with Relationship Recent Exposure to Contagious No 01/28/24 20:27 Disease Does patient have nerve No 07/21/24 06:14 stimulator Patient instructed to have device shut off --Does patient have Pacemaker or ICD? When Was Last Pacemaker Check QUESTION #4 FULL TEXT: You/Your Family Experience fever (hyperthermia) with Anesthesia Last Oral Intake Last Oral intake: Last Oral Intake NPO since Meds taken in AM with sips of water? Meds patient instructed to take am of surgery PONV PONV - medical office receptionist assistant: PONV - medical office receptionist assistant Female HX of Motion Sickness HX of N/V After Surgery Non-Smoker Duration of Surgery greater than 60 minutes Number of Risk Factors PONV Score Height & Weight Height & Weight: Anesthesia: Height & Weight Height 5 ft 2 in 08/17/24 09:20 Respiratory Assessment Respiratory Assessment - medical office receptionist assistant: Respiratory Tract Infection Hx - medical office receptionist assistant Hx Respiratory Tract Infection No 07/21/24 06:14 STOP Sleep Apnea STOP Sleep Apnea - medical office receptionist assistant: STOP Sleep Apnea - medical office receptionist assistant Hx Hypertension No 07/21/24 06:14 Hx Sleep Apnea No 07/21/24 06:14 CPAP BIPAP Do you snore loudly (louder than talking or can be heard Do you often feel tired/ fatigued/ sleepy during daytime? Has anyone observed you stop breathing during sleep? STOP Results QUESTION #5 FULL TEXT : Do you snore loudly (louder than talking or can be heard through closed doors)? 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 Specify any problems Hx of Preganancy in last 3 Months Nurse Filling Out Transfusion & Questions: Date: Time: Patient unable to answer at this time (ie. confused, unrespo /Reproduction History /Reproductive History - medical office receptionist assistant: /Reproductive Hx- medical office receptionist assistant Hx Now Gestational Age (in weeks): EDC: Hx Hx Para Hx Section SAB No 01/28/24 20:27 [facility] Medical History Encounter for education Recurrent malignant neoplasm of stomach Anemia Regional lymph node metastasis present Gastric cancer GI bleed Home Medications ?Medication ?Instructions ?Recorded ?Last Taken ?Type Discontinue PICC line/TPN #1 ea 06/10/24 Unknown Rx lidocaine-prilocaine 2.5 %-2.5 % 1 applic topical ONCE PRN port 08/17/24 Unknown Rx topical cream access 30 days #30 grams loperamide 2 mg capsule 2 mg PO Q6H PRN diarrhea #30 caps 08/17/24 Unknown Rx ondansetron 8 mg disintegrating 8 mg PO Q8H PRN nausea and 08/17/24 Unknown Rx tablet vomiting #30 tabs prochlorperazine maleate 10 mg 10 mg PO Q6H PRN nausea and 08/17/24 Unknown Rx tablet vomiting #30 tabs Allergy/AdvReac Type Severity Reaction Status Date / Time No Known Allergies Allergy Verified 08/17/24 09:21 Family History Mother No problems noted. Father No problems noted. Surgical History No history of previous surgery Social History household members: family Smoking Status: Never smoker alcohol intake: never substance use type: does not use Review of Systems (Anesthesia) ROS Narrative System reviewed and no additional complaints, except as documented.
[2024-08-18] MEDS: Cefazolin 2 GM in Syringe IV (11:51)
[2024-08-18] MEDS: Lidocaine 1% /Epi 1:100 (50ml) 50 ML VIAL (12:09)
[2024-08-18] MEDS: Bupivacaine Mpf 0.5% 30 ML VIAL (12:09)
--- NOTE | 2024-08-18 12:45 | PCM.POST.ANE ---
Anesthesia: Postop Eval I Current Vital Signs Temperature: 97.8 F Pulse Rate: 78 Blood Pressure: 104/68 Respiratory Rate: 12 Pulse Ox: 98 Oxygen Delivery Method: Room Air Assessment Airway patent: Yes Spontaneous unlabored respirations: Yes Mental status: Awake nausea: No Vomiting: No Anesthesia Complication: No Fluid Hydration Crystalloid volume administer (ml): 200 Total IV fluid infused: 200 Progress Note Anesthesia document: Postop Eval 1 completed: Yes
--- NOTE | 2024-08-18 12:47 | EX.PCM.DISCH ---
Discharge Instructions Diet Discharge Diet: Light diet - advance as tolerated Activity Discharge Activity: Return to Normal Activity and May Shower Dressing / Incision Call your doctor if your incision/area has: Continuous Slow Oozing, Sudden Increased Bleeding, Increased Pain/ Swelling, Increased Redness, Foul Smelling Discharge and Swelling at the incision site Call your doctor if you observe: Fever of 101 or Higher Cleanse incision/area with: Soap & Water Follow Up Care Test Results: Test results from this visit will be discussed in further detail at your follow-up appointment, if applicable. Discharge Plan Admission Primary Reason for Your Visit: Port placement Attending Provider: Dario Livingston Primary Care Provider: Care Physician,Erna Primary Instructions Print Language: Emirati Discharge Orders/Prescriptions Prescriptions: New oxycodone-acetaminophen [Percocet] 5-325 mg tablet 1 tab PO Q8H PRN (Reason: pain) 2 Days Qty: 5 0RF Continued lidocaine-prilocaine 2.5-2.5 % cream 1 applic topical ONCE PRN (Reason: port access) 30 Days Qty: 30 2RF loperamide 2 mg capsule 2 mg PO Q6H PRN (Reason: diarrhea) Qty: 30 2RF Rx Instructions: 4 mg with the first loose stool, 2 mg with each loose stool after. prochlorperazine maleate 10 mg tablet 10 mg PO Q6H PRN (Reason: nausea and vomiting) Qty: 30 2RF ondansetron 8 mg tablet,disintegrating 8 mg PO Q8H PRN (Reason: nausea and vomiting) Qty: 30 2RF (DME) Discontinue PICC line/TPN See Rx Instructions .Route .MEDSUPPLY Qty: 1 0RF Rx Instructions: C16.9 C77.9 Referrals / Follow Up: Care Physician,No Primary [Primary Care Provider] - Disposition Disposition (needs filled in before D/C Order can be placed): Home, Self Care
--- NOTE | 2024-08-18 12:55 | PCM.OPRPT ---
Problems Associated Problem List Diagnoses (1) Recurrent malignant neoplasm of stomach: Operative Report (Standard) Operative Information Surgery/Procedure Performed: Left subclavian Mediport placement with C arm Surgeon: Dario Livingston Date of Procedure: 08/18/24 Procedure Start Time: 12:09 Procedure Stop Time: 12:33 Pre-Operative Diagnosis: Gastric cancer Post-Operative Diagnosis: Same Select all DRAINS/GRAFTS/IMPLANTS that apply: Implanted device Implanted device details: 8 Lao PowerPort Type of Anesthesia: MAC Estimated Blood Loss: 5 mL Fluids Replaced: None Specimen collected: No Description of surgery: The patient is a 63-year-old male who presented to my office recently to discuss surgery to implant a Mediport. He was diagnosed with gastric neoplasm. His treatment team is recommending chemotherapy. A Mediport was recommended. We discussed the details of the planned procedure and he wished to proceed. Patient was brought to the operating room today following informed consent. Preoperative antibiotics were given and a timeout was performed. He was placed supine on the operative table with arms at his side. A MAC anesthesia was induced. Once adequately anesthetized the left upper chest and neck regions were prepped and draped in the usual sterile manner. An axillary roll was placed between the shoulder blades to improve exposure. Next local anesthetic was infiltrated in the left periclavicular region. The left subclavian vein was then accessed using the supplied needle and syringe. This was accomplished on the first pass. The blood return was a dark red nonpulsatile venous appearing blood return. The guidewire was then threaded through the aperture and the needle. The guidewire was then secured to the drapes using a curved hemostat. C-arm was brought into confirm good positioning of the guidewire. Next local anesthetic was injected into the left chest region and a 15 blade was then used to make about a 3 cm skin incision. Bovie electrocautery was then used dissect down through subcutaneous tissues down to the level of the pectoralis fascia. At this level a subcutaneous pocket was created to accommodate the port hub. The tubing was connected to the tunneling device and the tubing was tunneled into the larger incision and brought out through the smaller incision near the entry point of the guidewire. This was trimmed to about 22 cm. This was attached to the port hub. The hub was then affixed to the underlying chest wall using Prolene suture x 2. Next the dilator and tear-away sheath were then threaded over the guidewire and advanced. This was performed with C arm. The guidewire and dilator were then removed thus leaving the sheath in place. The free end of the tubing was threaded down the sheath. The sheath was then extracted while advancing the tubing. Post placement C arm images showed the tip of the tubing to be in good positioning. The port cb and flushed easily. It was flushed with heparin as well. 3-0 Vicryl was used to close the skin incision along with 5-0 Vicryl. Skin glue was applied as well. Final dressing consisted of sterile 2 x 2 then a large OpSite. Patient was awakened anesthesia and taken the PACU in good condition where chest x-ray will be performed. Surgical Findings: See operative note Remote Ruby On Rails Developer lpn medical assistant: No Complications Complications: No Admit VTE Documentation VTE Present on Admission: No VTE Mechan Device Prophylaxis: SCD's Procedures Cardiovascular CF Procedures [id number]: [id number] Insert tunneled cv cath
--- NOTE | 2024-08-18 13:03 | RAD_ITS ---
STUDY: X-RAY CHEST REASON FOR EXAM: Male, 63 years old. Port placement TECHNIQUE: Single AP portable view of the chest. COMPARISON: Comparison is made with prior examination dated January 31, 2024. FINDINGS: A left-sided Port-A-Cath has been placed with the tip at the junction of the superior vena cava and right atrium. Linear density at left lung base suggestive of atelectasis. There is no demonstrated pleural abnormality. Normal size heart. Normal mediastinum and ilsa. Normal visualized pulmonary arteries. There is atherosclerotic tortuosity of the aortic arch and descending thoracic aorta. Normal visualized thoracic spine. Normal visualized ribs, clavicles, and shoulders. Hiatal hernia. RAD/CXR for Line Placement IMPRESSION: The tip of the left Port-A-Cath is at the junction of the superior vena cava and right atrium. Electronically Signed: Bairon Combs MD at 13:42 EST ,
--- NOTE | 2024-08-18 16:28 | POSTOPAN2_ITS ---
Anesthesia Postop Eval I Sum Postop Eval Completion status Anesthesia document: Postop Eval 1 completed: Yes Anesthesia Postop Eval I Summary Anesthesia Postop Eval I Summary: Anesthesia Postop Eval I: Assessment Summary Airway patent Yes 08/18/24 12:46 [email or web address] Spontaneous unlabored Yes 08/18/24 12:46 EXPERIMENTAL [email or web address] respirations Mental status Awake 08/18/24 12:46 [email or web address] [email or web address] nausea No 08/18/24 12:46 EXPERIMENTAL [email or web address].[email or web address] Vomiting No 08/18/24 12:46 EXPERIMENTAL [email or web address].[email or web address] Anesthesia Postop Eval I: Fluid Summary Crystalloid volume administer 200 08/18/24 12:46 EXPERIMENTAL [email or web address] (ml) Colloids volume administered ( ml) Blood Product volume administered (ml) Total IV fluid infused 200 08/18/24 12:46 EXPERIMENTAL [email or web address].[email or web address] Anesthesia Postop Eval I: Summary Notes Anesthesia Complication No 08/18/24 12:46 [email or web address] [email or web address] Anesthesia Complication Comment: Post-operative progress note Anesthesia: Postop Eval II Evaluation Mental status: Awake Pain Level: 1 nausea: No Vomiting: No
--- NOTE | 2024-08-18 16:28 | PCM.POSTANE2 ---
Anesthesia Postop Eval I Sum Postop Eval Completion status Anesthesia document: Postop Eval 1 completed: Yes Anesthesia Postop Eval I Summary Anesthesia Postop Eval I Summary: Anesthesia Postop Eval I: Assessment Summary Airway patent Yes 08/18/24 12:46 [email or web address] Spontaneous unlabored Yes 08/18/24 12:46 [email or web address] [email or web address] respirations Mental status Awake 08/18/24 12:46 [email or web address] [email or web address] nausea No 08/18/24 12:46 [email or web address] [email or web address] Vomiting No 08/18/24 12:46 [email or web address] [email or web address] Anesthesia Postop Eval I: Fluid Summary Crystalloid volume administer 200 08/18/24 12:46 [email or web address] [email or web address] (ml) Colloids volume administered ( ml) Blood Product volume administered (ml) Total IV fluid infused 200 08/18/24 12:46 [email or web address] [email or web address] Anesthesia Postop Eval I: Summary Notes Anesthesia Complication No 08/18/24 12:46 [email or web address] [email or web address] Anesthesia Complication Comment: Post-operative progress note Anesthesia: Postop Eval II Evaluation Mental status: Awake Pain Level: 1 nausea: No Vomiting: No
== END 2024-08-18 14:36 | disposition home or self-care (01) ==
LOC: SDC 11:08 → AC 11:10
PROVIDERS: Referring Provider Surgery; Visit Provider Surgery
PROC: (CPT 36561; principal; 2024-08-18 11:15)
DX: C16.9 Malignant neoplasm of stomach, unspecified (principal); C77.9 Secondary and unspecified malignant neoplasm of lymph node, unspecified; Z95.828 Presence of other vascular implants and grafts
CPT/HCPCS: 36561; 00532; 71045; 77001; A4216; C1788; J2405

== ENCOUNTER → 2024-08-24 | Outpatient (CLI) | payer OTHER, SELFPAY ==
[2024-08-24] MEDS: 0.9 % NaCl (Sterile) Posiflush 10 mL IV (08:35)
[2024-08-24] MEDS: 0.9% Saline Lock 10 ML Syringe IV (08:43)
== END | disposition home or self-care (01) ==
LOC: CT 08:07
PROVIDERS: Referring Provider Internal Medicine Hematology & Oncology; Visit Provider Internal Medicine Hematology & Oncology
DX: C16.9 Malignant neoplasm of stomach, unspecified (principal); C77.9 Secondary and unspecified malignant neoplasm of lymph node, unspecified
CPT/HCPCS: 71260; 74177; Q9967; A4216

== ENCOUNTER → 2024-09-01 | Outpatient (CLI) | payer OTHER, SELFPAY ==
--- NOTE | 2024-09-01 11:55 | NM_ITS ---
CLINICAL: 63-year-old male with history of clinical gastroparesis. SEMI-SOLID PHASE 99m Tc SULFUR COLLOID GASTRIC EMPTYING STUDY COMPARISON: None available FINDINGS: The patient was administered 1.1 mCi of 99m Tc sulfur colloid mixed with oatmeal and consumed per os. Image acquisitions in the anterior-posterior projections were obtained for 60 minutes. There is prompt visualization of the stomach. There is no gastroesophageal reflux identified. First order kinetics are maintained throughout the duration of the acquisitions. The T ? linear fit was extrapolated to be 148.37 minutes, (Normal: 12-56 minutes). NM/Gastric Emptying Study IMPRESSION: 1. ABNORMAL 99m Tc sulfur colloid semi-solid phase (oatmeal) gastric emptying imaging examination. A. There is delayed semi-solid phase gastric emptying compared to normal controls with maintained first order kinetics throughout all components of the examination. (Sb et al, J Nucl Med Tech 38: 186, 2010). Electronically Signed: Brendan Naik DO at 22:36 EST ,
== END | disposition home or self-care (01) ==
LOC: NM 11:55
PROVIDERS: Referring Provider Internal Medicine Gastroenterology; Visit Provider Internal Medicine Gastroenterology
DX: C16.9 Malignant neoplasm of stomach, unspecified (principal); C77.9 Secondary and unspecified malignant neoplasm of lymph node, unspecified; D50.0 Iron deficiency anemia secondary to blood loss (chronic)
CPT/HCPCS: 78264; A9541

== ENCOUNTER → 2024-12-09 | Outpatient (CLI) | payer OTHER, SELFPAY ==
--- NOTE | 2024-12-09 08:21 | CT_ITS ---
PROCEDURE: CT CHEST, ABD, PEL W/CONTRAST REASON FOR EXAM: History of gastric cancer with metastasis. TECHNIQUE: Chest CTA with intravenous contrast and 3D reconstructions. Abdomen and pelvis CT using the same contrast dose. CONTRAST: 100 cc of Isovue 300. COMPARISON: Comparison is made with prior study dated August 24, 2024. FINDINGS: CHEST: Lines and tubes: A left-sided port a catheter is seen with the tip in the superior vena cava. Mediastinum: No evidence of mediastinal hemorrhage. Heart: Normal heart size. No pericardial effusion. Thoracic Aorta: No evidence of acute traumatic aortic injury. Lungs and Airways: Stable increased markings at the left lung base suggestive of either scarring and/or atelectasis. Mild degree of increased markings at the right base as well. Pleura: No pleural effusion. No pneumothorax. Bones: Degenerative changes of the spine. ABDOMEN AND PELVIS: Liver: Unremarkable. Gallbladder: The gallbladder is contracted. Spleen: Unremarkable. Pancreas: Unremarkable. Adrenals: Unremarkable. Kidneys: Unremarkable. Bladder: Prosthetic enlargement with indentation at the bladder base. Reproductive Organs: Unremarkable. Bowel: Moderate amount of residual food products within the stomach. Once again, there is evidence of diffuse circumferential wall thickening of the distal stomach in the antral portion of the stomach. This has improved slightly as compared to prior study. Large amount of fecal material is seen in the colon.. Small hiatal hernia. Vasculature: Major vascular structures are unremarkable. Peritoneum / Retroperitoneum: No free fluid. No free air. Bones: Degenerative changes of the spine. Persistent circumferential wall thickening of the distal stomach and antral portion of the stomach with residual food particles within the stomach. There has been slight improvement as compared to prior study. CT/CT Chest, Abd, Pel w/Contrast IMPRESSION: One or more dose reduction techniques were used (e.g., Automated exposure contr ol, adjustment of the mA and/or kV according to patient size, use of iterative reconstruction technique). Reading Location: [id number]
[2024-12-09] MEDS: 0.9 % NaCl (Sterile) Posiflush 10 mL IV (08:40)
[2024-12-09] MEDS: 0.9% Saline Lock 10 ML Syringe IV (08:50)
== END | disposition home or self-care (01) ==
LOC: CT 08:20
PROVIDERS: Referring Provider Internal Medicine Hematology & Oncology; Visit Provider Internal Medicine Hematology & Oncology
DX: C16.9 Malignant neoplasm of stomach, unspecified (principal)
CPT/HCPCS: 71260; 74177; Q9967

== ENCOUNTER 2025-02-03 12:29 | Emergency (ER) | payer OTHER, SELFPAY ==
[2025-02-03] VITALS (12 sets, daily range): BP systolic 84–112; BP diastolic 62–70; PULSE 120–134; RESP 17–37; TEMP 36.6–37.5; O2SAT 92–100; BMI 22.1
--- NOTE | 2025-02-03 12:48 | RAD_ITS ---
EXAM: Right femur CLINICAL HISTORY: History of injury. COMPARISON: No priors available. TECHNIQUE: Four views of the femur were obtained. FINDINGS: No acute abnormality is seen. RAD/Femur Min 2 Views IMPRESSION: No acute abnormality is seen. Reading Location: [place] [id number]
--- NOTE | 2025-02-03 12:48 | RAD_ITS ---
PROCEDURE: PELVIS 1 OR 2 VIEWS 02/03/2025 REASON FOR EXAM: FALL TECHNIQUE: 1 view(s) of the pelvis. COMPARISON: CT abdomen/pelvis 12/09/24. FINDINGS: Hardware: None. Bones: No acute fracture or suspicious osseous lesion. Joints: Normal alignment at the hips and sacroiliac joints. Soft tissues: Soft tissues are unremarkable. Other: The visualized bowel loops are nondilated. RAD/Pelvis 1 or 2 Views IMPRESSION: NO EVIDENCE OF PELVIC FRACTURE Reading Location: [id number]
--- NOTE | 2025-02-03 12:48 | RAD_ITS ---
PROCEDURE: CHEST 1 VIEW (PORTABLE) 02/03/2025 REASON FOR EXAM: WEAKNESS TECHNIQUE: Frontal view of the chest. COMPARISON: Comparison is made with prior study dated December 28, 2024. FINDINGS: Hardware: EKG electrodes are seen. Heart: The heart size is normal. Lungs: Mild degree of vascular congestion and CHF. Bibasilar atelectasis. Bones: Degenerative changes are identified within the thoracic spine. Other: RAD/Chest 1 View (Portable) IMPRESSION: Vascular congestion and mild CHF with bibasilar atelectasis. Reading Location: [facility]
--- NOTE | 2025-02-03 12:52 | EX.ED.DYSGE1 ---
HPI History of Present Illness Chief Complaint: Weakness Detail of Chief Complaint: Weakness Informant: patient Narrative Narrative: Patient presents to the emergency department complaint of generalized weakness. Patient states that his last chemotherapy was 1 week ago. He is being treated for gastric cancer. Patient states after the chemo he developed vomiting and diarrhea and decreased p.o. intake. Yesterday was feeling very weak and had a fall. No loss of consciousness and does not believe that he hit his head. He really did not complain much of injury yesterday. Today he is having a hard time walking secondary to weakness and pain in his right arm and right leg. He has had no fever. He has had a slight cough. Patient is British-speaking and has family members with him however they do not speak Cameroonian. 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 [facility] Medical History Cough Drug induced neutropenia Encounter for antineoplastic immunotherapy Encounter for chemotherapy management Encounter for education Recurrent malignant neoplasm of stomach Anemia Regional lymph node metastasis present Gastric cancer GI bleed Home Medications ?Medication ?Instructions ?Recorded ?Last Taken ?Type Discontinue PICC line/TPN #1 ea 06/10/24 Unknown Rx oxycodone-acetaminophen 5 mg-325 1 tab PO Q8H PRN pain 2 days #5 08/18/24 Unknown Rx mg tablet (Percocet) tabs lidocaine-prilocaine 2.5 %-2.5 % 1 applic topical ONCE PRN port 08/27/24 Unknown Rx topical cream access 30 days #30 grams loperamide 2 mg capsule 2 mg PO Q6H PRN diarrhea #30 caps 08/27/24 Unknown Rx ondansetron 8 mg disintegrating 8 mg PO Q8H PRN nausea and 08/27/24 Unknown Rx tablet vomiting #30 tabs prochlorperazine maleate 10 mg 10 mg PO Q6H PRN nausea and 08/27/24 Unknown Rx tablet vomiting #30 tabs sennosides 8.6 mg tablet (senna) 8.6 mg PO BID 12/28/24 Unknown History Allergy/AdvReac Type Severity Reaction Status Date / Time No Known Allergies Allergy Verified 01/25/25 09:22 Family History Mother No problems noted. Father No problems noted. Surgical History History of esophagogastroduodenoscopy (EGD) Social History household members: family Smoking Status: Never smoker alcohol intake: never substance use type: does not use ROS ROS ED Review of Systems ROS Unobtainable: other Constitutional Constitutional ED: Reports lethargy; Denies chills, fever(s), sweats or weight loss Eyes Eyes: Denies blurry vision, change in vision or diplopia ENT ENT ED: Denies rhinorrhea or sore throat Cardiovascular Cardiovascular: Denies chest pain, orthopnea or racing heartbeat Respiratory/Chest Respiratory/Chest: Denies cough, dyspnea, dyspnea on exertion, orthopnea or sputum Gastrointestinal Gastrointestinal: Reports diarrhea, nausea and vomiting; Denies abdominal pain Genitourinary Genitourinary ED: Denies dysuria, hematuria or urinary frequency Musculoskeletal Musculoskeletal: Denies arthralgias, back pain, myalgias or neck pain Integumentary Denies abscess, Abrasions or rash Neurologic Neurologic: Denies headache(s) or weakness Psychiatric Psychiatric: Denies anxiety, depression or suicidal thoughts Endocrine Endocrinology: Denies polydipsia, polyphagia or polyuria Hematologic/Lymphatic Hematologic/Lymphatic: Denies easy bleeding, easy bruising or lymphadenopathy Allergic/Immunologic Allergic/Immunologic ED: Denies mouth swelling, tongue swelling or urticaria EXAM Physical Exam Const Vital Signs: 02/03/25 12:30 02/03/25 13:18 02/03/25 13:30 Temperature 98.2 F Temperature Source Oral Pulse Rate 134 H 122 H Respiratory Rate 24 H 36 H Respiratory Effort Short of Breath Respiratory Pattern Tachypnea Blood Pressure 88/65 L 99/68 Blood Pressure Mean 72 78 Pulse Ox 92 100 Oxygen Delivery Method Room Air Room Air 02/03/25 14:00 02/03/25 14:16 Temperature 97.8 F 97.9 F Temperature Source Oral Oral Pulse Rate 122 H 123 H Respiratory Rate 28 H 31 H Respiratory Effort Respiratory Pattern Blood Pressure 102/64 112/67 Blood Pressure Mean 76 82 Pulse Ox 100 100 Oxygen Delivery Method Room Air Room Air Positive well nourished and well developed General Appearance ED: well developed and NAD HEENT Reports TM's clear and moist mucous membranes normocephalic and atraumatic; Negative for trauma or tenderness Tympanic Membrane ED: Yes TM's clear Eyes PERRL and EOMs intact bilaterally General Eye ED: Negative for pale conjunctiva or scleral icterus Neck no lymphadenopathy, supple and no JVD General: Negative for tenderness Chest Wall inspection of chest normal and palpation of chest normal Chest: Negative for tenderness Resp normal respiratory effort and clear to auscultation bilaterally Effort and Inspection: Negative for respiratory distress or pain with movement Auscultation: Negative for rhonchi, wheezes or diminished lung sounds Cardio regular rate, regular rhythm, S1 normal heart sound, S2 normal heart sound and no murmurs Peripheral Pulses: pulses 2+ throughout GI normal to inspection, nondistended, normoactive bowel sounds, soft to palpation, non-distended and no masses GI Narrative: Mild diffuse tenderness. There is no rebound, rigidity, or peritoneal signs. No mass palpated Back/Spine no CVA tenderness and no thoracic nor lumbar tenderness Extremity normal to inspection Extremity Narrative: Right upper extremity-patient has some diffuse tenderness over the glenohumeral joint and mid humerus. No significant ecchymosis or bruising noted. No obvious deformity. He is neurovascular intact distally Right hip-mild diffuse tenderness over the hip and proximal femur. No obvious deformity. Neurovascular intact distally. General Extremety ED: Yes tenderness and other findings; Negative for edema General Extremity: other findings; Negative for edema Neuro oriented x3, CN's II-XII intact bilaterally, no sensory deficits noted and gait normal Sensorium / Orientation: awake, alert, oriented to person, oriented to place and oriented to time Motor Exam: strength 5/5 throughout and strength abnormal Psych mental status grossly normal Skin no rashes or lesions noted and no wounds MDM MDM MDM Narrative Medical decision making narrative: Patient presents with generalized weakness with recent episodes of vomiting and diarrhea. Patient last chemo was a week ago. He presented hypotensive and tachycardic. Will obtain labs. He does have a port in his left chest and will access that and ordered a liter normal same fluid bolus. Will obtain blood cultures as well as labs and urinalysis. Will test for COVID flu and RSV. Will obtain x-rays of his chest as well as right humerus and right femur as well as right hip and pelvis. CBC with differential showed a white of 6.5 with hemoglobin 11.3 and platelet count of 17,000. Chemistry showed a sodium of 126 with potassium 3.1. BUN 35 creatinine 1.22. Glucose 177. Lactate elevated 4.2. AST was 100 as well as ALT of 37 and alk phos was 173. He was given a liter normal saline fluid bolus and his blood pressure improved significantly to 112/67 and tachycardia improved. Patient I believe is likely dehydrated related to vomiting and diarrheal illness likely viral. I am not convinced he is septic but will order a urinalysis as well. He had x-rays of the right humerus as well as right femur and right hip and pelvis which were negative for fractures. Chest x-ray showed some mild pulmonary congestion. Case will be discussed with hospitalist evaluate patient for admission. He will receive potassium chloride 40 mEq p.o. Lab Data Attestation: I reviewed the patient's lab results. Labs: Laboratory Results - last 24 hr 02/03/25 13:13 WBC 6.5 RBC 3.40 L Hgb 11.3 L Hct 31.7 L MCV 93.2 MCH 33.2 H MCHC 35.6 RDW Std Deviation 49.8 H RDW Coeff of Michael 14.6 MPV TNP Immature Gran % (Auto) 2.000 H Neut % (Auto) 94.3 H Lymph % (Auto) 1.8 L [place] % (Auto) 0.8 Eos % (Auto) 0.0 Baso % (Auto) 1.1 H Absolute Neuts (auto) 6.1 Absolute Lymphs (auto) 0.12 L Nucleated RBC % 0 Sodium 126 L Potassium 3.1 L Chloride 94 L Carbon Dioxide 21.2 Anion Gap 11 BUN 35 H Creatinine 1.22 H Estim Creat Clear Calc 46.62 L Est GFR (MDRD) Non-Af 66 BUN/Creatinine Ratio 28.9 H Glucose 177 H Lactic Acid 4.2 H* Calcium 7.5 L Total Bilirubin 1.30 AST 100 H ALT 37 Alkaline Phosphatase 173 H Total Protein 5.3 L Albumin 2.4 L Globulin 2.9 Albumin/Globulin Ratio 0.8 L Radiography Diagnostic Testing: Clinical Impression(s) from Imaging Studies Chest X-Ray 02/03/25 12:48 IMPRESSION: Vascular congestion and mild CHF with bibasilar atelectasis. Reading Location: [id number] Femur X-Ray 02/03/25 12:48 IMPRESSION: No acute abnormality is seen. Reading Location: [facility] Pelvis X-Ray 02/03/25 12:48 IMPRESSION: NO EVIDENCE OF PELVIC FRACTURE Reading Location: [facility] Humerus X-Ray 02/03/25 13:30 IMPRESSION: No abnormality is seen. Reading Location: [facility] 2 view x-rays of right humerus obtained interpreted by myself as no evidence of fracture or dislocation. Radiology in agreement. 2 view x-rays of right femur obtained interpreted by myself as no evidence of fracture or dislocation. Radiology in agreement. Three-view x-rays of the right hip and pelvis obtained interpreted by myself as no evidence of fracture or dislocation and radiology in agreement. 1 view chest x-ray obtained interpreted by myself no evidence of infiltrate or pneumothorax. He had some mild vascular congestion. Radiology in agreement Discharge Plan Triage Chief Complaint: Weakness Other Complaint: Fall ED Provider: Beatriz Garcia Dx/Rx/DC Orders Clinical Impression: Nausea vomiting and diarrhea, Acidosis, lactic, Dehydration, Acute hypokalemia, Contusion of arm, right, Contusion of hip, right, Weakness, Acute hyponatremia Prescriptions: No Action prochlorperazine maleate 10 mg tablet 10 mg PO Q6H PRN (Reason: nausea and vomiting) Qty: 30 2RF ondansetron 8 mg tablet,disintegrating 8 mg PO Q8H PRN (Reason: nausea and vomiting) Qty: 30 2RF loperamide 2 mg capsule 2 mg PO Q6H PRN (Reason: diarrhea) Qty: 30 2RF Rx Instructions: 4 mg with the first loose stool, 2 mg with each loose stool after. lidocaine-prilocaine 2.5-2.5 % cream 1 applic topical ONCE PRN (Reason: port access) 30 Days Qty: 30 2RF sennosides [senna] 8.6 mg tablet 8.6 mg PO BID oxycodone-acetaminophen [Percocet] 5-325 mg tablet 1 tab PO Q8H PRN (Reason: pain) 2 Days Qty: 5 0RF (DME) Discontinue PICC line/TPN See Rx Instructions .Route .MEDSUPPLY Qty: 1 0RF Rx Instructions: C16.9 C77.9 Primary Care Provider: Care Physician,No Primary Referrals: Care Physician,No Primary [Primary Care Provider] - Print Language: British Disposition Disposition: Acute Care Hospital [facility] [place] [facility]
[2025-02-03] MEDS: 0.9% Normal Saline (1000mL) 1,000 ML 1000 ML IV (13:13)
[2025-02-03 13:28] LABS: Absolute Lymphocyte Count 0.12 X10^3/uL (0.83-4.51); Absolute Neutrophil Count 6.1 X10^3/uL (2.0-7.7); Basophil# 0.07 X10^3/uL; Basophil% 1.1 % (0-1); Hematocrit 31.7 % (40-54); Hemoglobin 11.3 g/dL (13.0-16.5); Lymphocyte # 0.12 X10^3/ul (0.83-4.51); Lymphocyte % 1.8 % (19-41); Mean Corp Hgb Conc 35.6 g/dL (32-36); Mean Corpuscular Hgb 33.2 pg (27.0-32.0); Mean Corpuscular Volume 93.2 fL (80-94); Monocyte# 0.05 X10^3/uL; Monocyte% 0.8 % (0-10); NRBC Flagged by Analyzer 0 % (0-5); Neutrophil # 6.14 X10^3/uL (2.7-7.7); Neutrophil % 94.3 % (47-70); POSITIVE COUNT YES; POSITIVE DIFFERENTIAL YES; POSITIVE MORPHOLOGY YES; RBC Distribution Width CV 14.6 % (11.6-14.6); RBC Distribution Width SD 49.8 fl (35.1-43.9); White Blood Count 6.5 K/mm3 (4.4-11.0)
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
[2025-02-03 14:13] LABS: Differential Indicated SCAN CRITERIA MET; Platelet Count 17 K/mm3 (150-450)
[2025-02-03 14:15] LABS: ALB/GLOB Ratio 0.8 RATIO (0.9-2.4); Alanine Aminotransfer ALT/SGPT 37 U/L (<=46); Albumin, Serum 2.4 g/dL (3.4-4.8); Alkaline Phosphatase 173 U/L (40-129); Anion Gap 11 (5-15); BUN 35 mg/dL (4-19); BUN/Creat Ratio 28.9 RATIO (10-20); Calcium,Total 7.5 mg/dL (7.6-11.0); Carbon Dioxide 21.2 mmol/L (21.0-32.0); Chloride 94 mmol/L (98-108); Creatinine, Serum 1.22 mg/dL (0.70-1.20); EST Glomerular Filtration Rate 66 (>60); Estimated Creatinine Clearance 46.62 ml/min (50-250); Globulin 2.9 g/dL (2.2-4.2); Glucose 177 mg/dL (70-99); Potassium 3.1 mmol/L (3.3-5.1); Protein, Total 5.3 g/dL (5.9-8.4); Sodium Level 126 mmol/L (133-145)
[2025-02-03 14:17] LABS: Dohle Bodies 1+; Toxic Granulation 1+
[2025-02-03 14:22] LABS: Polychromasia 1+
[2025-02-03 14:25] LABS: Lactic Acid 4.2 mmol/L (0.0-2.0)
[2025-02-03 14:34] LABS: AST(SGOT) 99 U/L (<=37)
--- NOTE | 2025-02-03 15:20 | CT_ITS ---
PROCEDURE: CT CHEST, ABD, PEL W/CONTRAST 02/03/2025 REASON FOR EXAM: ABDOMINAL PAIN, VOMITING TECHNIQUE: Chest, abdomen and pelvis CT with intravenous contrast. Coronal and Sagittal reconstruction series were provided. One or more dose reduction techniques were used (e.g., Automated exposure control, adjustment of the mA and/or kV according to patient size, use of iterative reconstruction technique. PATIENT PREPARATION: Per protocol ORAL CONTRAST TYPE: None. CONTRAST: [id number] VOLUME: 100mL RADIATION DOSE SUMMARY: CTDlvol: 40 mGy DLP: 800 mGycm COMPARISON: CT chest, abdomen and pelvis 12/09/2024. FINDINGS: Visualization is limited by motion artifact. CT CHEST: Hardware: Left chest wall port with tip terminating in the right atrium. Lymph nodes: No axillary, mediastinal or hilar lymphadenopathy. Ill-defined subcutaneous stranding within the right axilla. Heart and Vasculature: The heart is normal in size. No coronary artery calcifications. The great vessels are grossly normal caliber. Lungs and Airways: The central airways are grossly patent. Low lung volumes. Multiple right sided pleural loculations with adjacent atelectasis. Left atelectasis/scarring. Bones/soft tissues: Lower cervical and thoracic spondylosis. Probable acute fracture deformity of the distal sternal body (best visualized on abdominal/pelvic sagittal image 77). Acute fracture deformities of the right anterolateral 2nd-6th and lateral 8th and 9th ribs. Acute fracture deformities of the left 2nd-10th ribs. Ill- defined subcutaneous edema with asymmetric thickening and enlargement of the right subscapularis muscle. CT ABDOMEN/PELVIS: Visualization is again limited by motion artifact. Liver: The liver is grossly normal in size. Gallbladder: Decompressed. Spleen: Development of wedge shape hypodensities within the splenic parenchyma. The spleen is normal-size. Pancreas: Grossly unremarkable. Adrenals: No obvious adrenal mass. Kidneys: Areas of wedge-shaped hypodensity within the left renal parenchyma (for example series 3, image 41). No hydronephrosis or nephrolithiasis. Bladder: Minimally distended. Reproductive Organs: Enlarged prostate. Bowel: Circumferential wall thickening of the gastroesophageal junction and proximal stomach. The bowel loops are grossly nondilated. Lymph nodes: Limited visualization. Vasculature: No significant calcific atherosclerosis. Bones: Progression of patient's known L1 wedge compression fracture deformity. Lumbar spondylosis. CT/CT Chest, Abd, Pel w/Contrast IMPRESSION: CT chest: 1. Motion limited exam. Asymmetric thickening and enlargement of the right sub scapularis muscle, and adjacent right rib fracture deformities. Findings are most concerning for intramuscular hematoma from alex rial bleed. CTA or IR consultation is recommended for further evaluation. 2. Multiple right-sided pleural loculations with adjacent atelectasis, indeterm inate in etiology but most compatible with extrapleural hematoma. Additional considerations include infection or developm ent of pleural metastases. 3. Additional acute multilevel left-sided rib fracture deformities. 4. Probable acute sternal body fracture. CT abdomen/pelvis: 1. Motion limited exam. Development of splenic and left renal parenchymal wedg e-shaped hypodensities, most compatible with subacute/developing infarct. 2. Circumferential wall thickening of the gastroesophageal junction and proxima l stomach, compatible with reported history of gastric cancer. Reading Location: [id number]
[2025-02-03 15:23] LABS: Mucous, Urine 0 SEEN /hpf (<or=2+)
[2025-02-03 15:33] LABS: Color, Urine Yellow (Yellow); Glucose, Dipstick Normal (Normal); Ketone-Dipstick Negative (Negative); Specific Gravity, Urine 1.015 (1.002-1.030); Urine Bilirubin Dipstick Negative (Negative); Urine Clarity Clear (Clear); Urine Urobilinogen Normal (Normal)
[2025-02-03 15:34] LABS: Leukocyte Esterase-Dipstick 25 /ul (Negative); Nitrite-Dipstick Negative (Negative); Occult Blood-Urine 150 /ul (Negative)
[2025-02-03] MEDS: Potassium Chloride Oral Tablet 20 MEQ 40 MEQ PO (15:35)
[2025-02-03] MEDS: 0.9% Normal Saline (1000mL) 1,000 ML 150 ML IV (15:36)
[2025-02-03] MEDS: 0.9% Normal Saline (500mL Bag) 500 ML 999 ML IV (15:58)
[2025-02-03] MEDS: fentaNYL 100 MCG/2 ML Ampul 25 MCG IV ×2 (15:58→17:33)
[2025-02-03 16:19] LABS: Protein, Urine (Random) 95.3 mg/dL (0.0-12.0)
[2025-02-03 16:22] LABS: Bacteria 1+ /hpf (None Seen); Fine Granular Cast- Urine 0-5 SEEN /lpf (0-5); Hyaline Cast 0-5 SEEN /lpf (0-5); Red Blood Cells-Urine 5-10 SEEN /hpf (0-5); Squamous Epithelial Cells - UA 0-5 SEEN /hpf (0-5); White Blood Cells 5-10 SEEN /hpf (0-5)
[2025-02-03 17:19] LABS: Reflex Lactate? Y
[2025-02-03] MEDS: 0.9% Normal Saline (1000mL) 1,000 ML 999 ML IV (17:33)
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
[2025-02-03 18:30] LABS: Lactic Acid 1.3 mmol/L (0.0-2.0)
== END 2025-02-03 18:15 | disposition short-term general hospital (02) ==
PROVIDERS: Emergency Provider Emergency Medicine; Visit Provider Emergency Medicine
DX: E86.0 Dehydration (principal); C16.9 Malignant neoplasm of stomach, unspecified; S70.01XA Contusion of right hip, initial encounter; E87.20 Acidosis, unspecified; E87.6 Hypokalemia; E87.1 Hypo-osmolality and hyponatremia; R19.7 Diarrhea, unspecified; R11.2 Nausea with vomiting, unspecified; R05.9 Cough, unspecified; W19.XXXA Unspecified fall, initial encounter
CPT/HCPCS: 36591; 71045; 71260; 72170; 73060; 73552; 74177; 80053; 81001; 83605; 84156; 85025; 87040; 87077; 87186; 87631; 96361; 96374; 99285; Q9967; A4216